=== PATIENT | male | born 1940 | race Caucasian/White ===

== ENCOUNTER 2021-03-31 10:48 | Inpatient (IN) ==
--- NOTE | 2021-03-31 11:11 | Emergency Department Note ---
Impression & Plan Hip fracture, Fall, Leukocytosis ED Provider Note NAME: SORAIDA MEI AGE: 81 SEX: M : 1940 ARRIVES VIA: Ambulance INFORMANT: Patient ED PROVIDER(S): Sekou Brand DO CHIEF COMPLAINT: Fall HPI: Patient is an 81-year-old male with Parkinson's disease who presents to the ER following being found on the floor at [facility]. He was complaining of left hip pain. Patient denies any shoulder pain, head pain, chest pain, or belly pain. He denies any shortness of breath. He does complain of left hip pain. History is fairly limited secondary to mentation. ROS: See above HPI for pertinent positives & negatives. A total of 10 systems reviewed and were otherwise negative. PAST MEDICAL HISTORY:See Below PAST SURGICAL HISTORY:See Below FAMILY HISTORY:See Below SOCIAL HISTORY:See Below HOME MEDICATIONS:See Below ALLERGIES:See Below VITALS:See Below PHYSICAL EXAMINATION: GENERAL: alert, well appearing, well nourished, no distress, non-toxic HEAD: normal cephalic, incision over cranium with no drainage or discharge EYE EXAM: normal conjunctiva, PERRL and EOM's grossly intact OROPHARYNX: no exudate, no erythema, lips, buccal mucosa, and tongue normal and mucous membranes are moist NECK: supple, no nuchal rigidity, no adenopathy, non-tender CHEST: stable to compression anteriorly and posteriorly LUNGS: clear to auscultation. Normal chest wall mechanics HEART: no murmurs, S1 normal and S2 normal ABDOMEN: abdomen soft, non-tender, normo-active bowel sounds, no masses, no rebound or guarding. PELVIS: stable to compression anteriorly and posteriorly BACK: Back is symmetrical on inspection and there is no deformity, no midline tenderness, no CVA tenderness. UPPER EXTREMITIES: full active and passive range of motion of all joints without tenderness to palpation LOWER EXTREMITIES: Hip knee ankle and EHL without tenderness to palpation of the entire extremity. Tenderness over the left hip on palpation. No tenderness throughout the left knee tib-fib or ankle flexion-extension right NEURO EXAM: Awake alert will intermittently answer questions oriented to person and believes he is at [facility]. Moving upper extremities. Pain with movement of the left hip which is held in flexion. MEDICAL DECISION MAKING: Patient is an 81-year-old male with dementia pacer and neurostimulator who presents the ER following a fall complaining of left hip pain. Slight hypoxic placed on 2 L nasal cannula. IV was established blood work was obtained. Labs showed mild leukocytosis 12,000. No significant anemia. BMP all with LFTs was unremarkable. T bili slightly up at 1.9. Lipase was normal. Covid was negative. X-rays of the pelvis showed impacted left femoral neck fracture. CT head was clean. Discussed with family and they do not want surgery but do need additional help in regards to placement and treatment of pain. He was discussed with hospitalist for further evaluation. Triage Nursing notes reviewed. Limited review of prior medical records performed Vital Signs: reviewed and remarkable for no significant abnormalities Differential diagnosis: Differential diagnoses include major intracranial, cervical, spinal, thoracic, abdominal, pelvic and neurologic injury. Fracture, contusion, sprain, strain, laceration, abrasions included as well. ER treatment provided: See below Diagnostics interpreted by me: Cardiac Monitoring: An order was placed for continuous cardiac monitoring. The monitor shows a rate of 70 with sinus rhythm. Laboratory studies: As stated above and show below. Imaging studies: X-rays show left hip fracture CT head was negative Consultation(s): Discussed with hospitalist for further evaluation Discussed with Dr. Jose Antonio Zamora who evaluate the patient from orthopedics Procedures: Critical Care: None Past Med/Surg History Medical History (Updated 03/31/21 @ 16:09 by THELMA Moreno) Diverticulitis Hypokalemia Hypokalemia No significant family history Pacemaker Parkinson disease Parkinson disease Surgical History (Updated 03/31/21 @ 15:52 by THELMA Moreno) No significant past surgical history Social History Smoking Status: Unknown if ever smoked Feels Safe at Home: Yes Allergies Allergies Allergy/AdvReac Type Severity Reaction Status Date / Time amoxicillin Allergy Severe LIVER Verified 03/31/21 12:45 REACTION, BECAME JAUNDICE clavulanic acid Allergy Severe LIVER Verified 03/31/21 12:45 REACTION, JAUNDICE Quinolones Allergy Mild LIVER, Verified 03/31/21 12:45 JAUNDICE; ALLERGY TO CIPRO, LEVAQUIN, & MOXIFLOXACIN Home Meds Home Medications Medication Instructions Recorded Confirmed atorvastatin 40 mg tablet (Lipitor) 40 mg PO HS 09/01/18 03/31/21 calcium carb,cit ER 600 mg-vit D3 1 tab PO DAILY 09/01/18 03/31/21 12.5 mcg (500 unit) tablet,ext.rel carbidopa 25 mg-levodopa 100 mg 2 tab PO 6XD 09/01/18 03/31/21 tablet isosorbide mononitrate 30 mg 30 mg PO DAILY 09/01/18 03/31/21 tablet,extended release 24 hr lactobacillus combination no.4 3 3 mmu cells PO BID 09/01/18 03/31/21 billion cell capsule (Probiotic) melatonin 5 mg tablet 10 mg PO HS 09/01/18 03/31/21 metoprolol succinate 50 mg capsule 75 mg PO DAILY 09/01/18 03/31/21 sprinkle, ext. release 24 hr multivitamin 1 tab PO DAILY 09/01/18 03/31/21 nitroglycerin 0.4 mg sublingual 0.4 mg SUBLINGUAL UD PRN 09/01/18 03/31/21 tablet (Nitrostat) polyethylene glycol 3350 17 gram 8.5 g PO DAILY 09/01/18 03/31/21 oral powder packet (Miralax) psyllium husk 3.4 gram/5.4 gram 1 dose PO DAILY 09/01/18 03/31/21 oral powder (Metamucil) escitalopram oxalate 10 mg tablet 10 mg PO DAILY 03/31/21 03/31/21 rivastigmine tartrate 6 mg capsule 6 mg PO BID 03/31/21 03/31/21 Results & Data (ED) Vital Signs Vital Signs - 24 hr 03/31/21 11:05 03/31/21 11:08 03/31/21 11:11 Temperature 37.0 C 37.0 C Temperature Source Oral Oral Pulse Rate 78 83 Pulse Rate [Apical] Pulse Rhythm Regular Regular Pulse Rhythm [Apical] Pulse Strength Normal Pulse Strength [Apical] Respiratory Rate 20 19 18 Respiratory Effort / Characteristics Non-Labored Spontaneous Non-Labored Spontaneous Respiratory Depth Normal Normal Respiratory Pattern Regular Blood Pressure 162/101 H Blood Pressure [Right Arm] 162/101 H Blood Pressure Mean 121 Blood Pressure Mean [Right Arm] 121 Blood Pressure Position Lying Blood Pressure Position [Right Arm] Lying Pulse Oximetry 97 96 95 Oxygen Delivery Method Nasal Cannula Nasal Cannula Nasal Cannula Oxygen Flow Rate 3 2 2 Sepsis Recent Fever Within 48 Hours No Sepsis New/Unexplained Change in Mental Status N/A Sepsis Action Taken by Nursing No Action Required 03/31/21 13:05 Temperature Temperature Source Pulse Rate Pulse Rate [Apical] 73 Pulse Rhythm Pulse Rhythm [Apical] Regular Pulse Strength Pulse Strength [Apical] Normal Respiratory Rate 20 Respiratory Effort / Characteristics Non-Labored Spontaneous Respiratory Depth Normal Respiratory Pattern Blood Pressure Blood Pressure [Right Arm] 183/94 H Blood Pressure Mean Blood Pressure Mean [Right Arm] 123 Blood Pressure Position Blood Pressure Position [Right Arm] Lying Pulse Oximetry 95 Oxygen Delivery Method Nasal Cannula Oxygen Flow Rate 2 Sepsis Recent Fever Within 48 Hours Sepsis New/Unexplained Change in Mental Status Sepsis Action Taken by Nursing Laboratory Data Result diagrams: 03/31/21 11:12 03/31/21 11:12 Lab Results 03/31/21 03/31/21 03/31/21 Range/Units 11:12 11:12 11:58 WBC 12.54 H (4.8-10.8) K/uL RBC 4.16 L (4.7-6.1) M/uL Hgb 13.1 L (14.0-18.0) g/dL Hct 39.0 L (42-52) % MCV 93.8 (80-100) fL MCH 31.5 (25-34) pg MCHC 33.6 (32-36) g/dL RDW Std Deviation 49.5 H (36.4-46.3) fL RDW Coeff of Jeremías 14.5 (11.5-14.5) % Plt Count 232 (130-400) K/uL MPV 8.8 (7.4-10.4) fL Immature Gran % (Auto) 0.5 % Neut % (Auto) 83.6 % Lymph % (Auto) 10.7 % Alger % (Auto) 4.9 % Eos % (Auto) 0.3 % Baso % (Auto) 0.0 % Neut # (Auto) 10.48 H (1.4-6.5) K/uL Lymph # (Auto) 1.34 (1.2-3.4) K/uL Alger # (Auto) 0.62 H (0.11-0.59) K/uL Eos # (Auto) 0.04 (0-0.5) K/uL Baso # (Auto) 0.00 (0-0.2) K/uL Immature Gran # (Auto) 0.06 H (0.00-0.02) K/uL Sodium 138 (136-145) mmol/L Potassium 3.9 (3.5-5.1) mmol/L Chloride 105 (98-107) mmol/L Carbon Dioxide 31 (21-32) mmol/L Anion Gap 2.0 L (3-11) BUN 16 (7-18) mg/dl Creatinine 0.74 (0.6-1.4) mg/dl Est Cr Clr Drug Dosing 83.0 ml/min Est GFR ( Amer) 98.9 ml/min Est GFR (Non-Af Amer) 85.3 ml/min BUN/Creatinine Ratio 21.8 H (10-20) Glucose 98 (70-99) mg/dl Calcium 9.1 (8.5-10.1) mg/dl Total Bilirubin 1.9 H (0.2-1) mg/dl AST 35 (15-37) U/L ALT 29 (12-78) U/L Alkaline Phosphatase 104 (45-117) U/L Total Protein 6.7 (6.4-8.2) gm/dl Albumin 3.6 (3.4-5.0) gm/dl Globulin 3.1 (2.5-4.0) gm/dl Albumin/Globulin Ratio 1.2 (0.9-2) Lipase 127 (73-393) U/L COVID-19 Eval Order Covid19 at [facility] SARS-CoV-2 (PCR) (Negative) 03/31/21 Range/Units 11:58 WBC (4.8-10.8) K/uL RBC (4.7-6.1) M/uL Hgb (14.0-18.0) g/dL Hct (42-52) % MCV (80-100) fL MCH (25-34) pg MCHC (32-36) g/dL RDW Std Deviation (36.4-46.3) fL RDW Coeff of Jeremías (11.5-14.5) % Plt Count (130-400) K/uL MPV (7.4-10.4) fL Immature Gran % (Auto) % Neut % (Auto) % Lymph % (Auto) % Alger % (Auto) % Eos % (Auto) % Baso % (Auto) % Neut # (Auto) (1.4-6.5) K/uL Lymph # (Auto) (1.2-3.4) K/uL Alger # (Auto) (0.11-0.59) K/uL Eos # (Auto) (0-0.5) K/uL Baso # (Auto) (0-0.2) K/uL Immature Gran # (Auto) (0.00-0.02) K/uL Sodium (136-145) mmol/L Potassium (3.5-5.1) mmol/L Chloride (98-107) mmol/L Carbon Dioxide (21-32) mmol/L Anion Gap (3-11) BUN (7-18) mg/dl Creatinine (0.6-1.4) mg/dl Est Cr Clr Drug Dosing ml/min Est GFR ( Amer) ml/min Est GFR (Non-Af Amer) ml/min BUN/Creatinine Ratio (10-20) Glucose (70-99) mg/dl Calcium (8.5-10.1) mg/dl Total Bilirubin (0.2-1) mg/dl AST (15-37) U/L ALT (12-78) U/L Alkaline Phosphatase (45-117) U/L Total Protein (6.4-8.2) gm/dl Albumin (3.4-5.0) gm/dl Globulin (2.5-4.0) gm/dl Albumin/Globulin Ratio (0.9-2) Lipase (73-393) U/L COVID-19 Eval Order SARS-CoV-2 (PCR) NEGATIVE (Negative) Administered Medications Discontinued Medications Acetaminophen (Acetaminophen 325 Mg Tab) 650 mg PO NOW STA Stop: 03/31/21 15:18 Last Admin: 03/31/21 15:50 Dose: Not Given Documented by: [id number] Imaging Data Radiologist's Impression: Head CT 03/31/21 11:03 CT OF THE HEAD WITHOUT CONTRAST CLINICAL HISTORY: Headache. COMPARISON STUDY: Head CT October 22, 2018. CT DOSE: 1041.13 mGy.cm TECHNIQUE: Helical axial images of the head were obtained without IV contrast. Automated exposure control was utilized for the study. A dose lowering techn ique was utilized adhering to the principles of ALARA. FINDINGS: Exam is mildly compromised by streak artifact from bilateral stimulator leads. Hypodensity adjacent to the stimulator leads is likely from recent placement. Ventricular system is stable. Basal cisterns are patent. No extra axial collections are present. There are no findings to suggest acute du ral sinus thrombosis or acute territorial infarct. There is no calvarial fracture. Gas within the left calvarial defect suggests recent placement. IMPRESSION: 1. No acute intracranial findings. 2. Exam mildly compromised by streak artifact from bilateral stimulator leads. ACT 112: Negative or not required by law. Electronically signed by: Hai Li M.D. 03/31/2021 1:44 PM Hip/Pelvis X-Ray 03/31/21 11:03 SINGLE VIEW PELVIS; 2 VIEWS LEFT HIP CLINICAL HISTORY: Fall. Left hip pain. FINDINGS: An AP view of the pelvis with AP and frog-leg views of the left hip are obtained. Correlation is made with pelvic CT dated 05/15/2015. The skeletal structures are osteopenic. There is an impacted and mildly displaced subcapital fracture of the left femur. Overlying soft tissue edema is noted. No additional fracture is seen involving the right hip or the bony pelvis. Mild degenerative joint space narrowing is present in the hips. Degenerative sclerosis is seen in the sacroiliac joints. Surgical clips project over the scrotum. There are pelvic phleboliths. IMPRESSION: Impacted and mildly displaced subcapital fracture of the left femur. Electronically signed by: Fabian Eric M.D. 03/31/2021 12:09 PM Chest X-Ray 03/31/21 11:11 XR chest 1V not portable CLINICAL HISTORY: Fall. COMPARISON STUDY: Chest radiograph September 01, 2018. FINDINGS: Patient is rotated. There are median sternotomy wires, mediastinal surgical clips and a stimulator device. No pneumothorax or pleural effusion is noted. No evidence for pulmonary edema. Skin folds project over the right chest. No consolidation is identified. IMPRESSION: No acute cardiopulmonary findings. Rotated study. ACT 112: Negative or not required by law. Electronically signed by: Hai Li M.D. 03/31/2021 12:02 PM Discharge Plan Visit Data Chief Complaint: Fall Stated Complaint: FALL, L HIP & SHOULDER PAIN ED Provider: Sekou Brand Discharge Problem: Hip fracture, Fall, Leukocytosis Forms Stand Alone Forms: [facility] Prescriptions Prescriptions: No Action multivitamin Tablet 1 tab PO DAILY RF: 0 atorvastatin [Lipitor] 40 mg Tablet 40 mg PO HS RF: 0 polyethylene glycol 3350 [Miralax] 17 gram Powder In Packet 8.5 g PO DAILY RF: 0 isosorbide mononitrate 30 mg Tablet Extended Release 24 Hr 30 mg PO DAILY RF: 0 nitroglycerin [Nitrostat] 0.4 mg Tablet, Sublingual 0.4 mg sublingual UD PRN (Reason: Chest Pain) RF: 0 carbidopa-levodopa 25-100 mg Tablet 2 tab PO 6XD RF: 0 melatonin 5 mg Tablet 10 mg PO HS RF: 0 calcium carb and citrate-vitD3 600 mg calcium- 500 unit Tablet Extended Release 1 tab PO DAILY RF: 0 Probiotic 3 billion cell Capsule 3 mmu cells PO BID RF: 0 Metamucil 3.4 gram/5.4 gram Powder 1 dose PO DAILY RF: 0 metoprolol succinate 50 mg Capsule,Sprinkle,Er 24hr 75 mg PO DAILY RF: 0 rivastigmine tartrate 6 mg capsule 6 mg PO BID RF: 0 escitalopram oxalate 10 mg tablet 10 mg PO DAILY RF: 0 Referrals Referrals: Lorne Gomez [Primary Care Provider] -
[2021-03-31 11:20] LABS: Eosinophils # (auto) 0.04 K/uL (0-0.5); Eosinophils % (auto) 0.3 %; Hemoglobin 13.1 g/dL (14.0-18.0); Immature Granulocytes # (auto) 0.06 K/uL (0.00-0.02); Immature Granulocytes % (auto) 0.5 %; Lymphocytes # (auto) 1.34 K/uL (1.2-3.4); Lymphocytes % (auto) 10.7 %; Mean Corpuscular Hemoglobin 31.5 pg (25-34); Mean Corpuscular Hgb Conc 33.6 g/dL (32-36); Mean Corpuscular Volume 93.8 fL (80-100); Mean Platelet Volume 8.8 fL (7.4-10.4); Monocytes # (auto) 0.62 K/uL (0.11-0.59); Monocytes % (auto) 4.9 %; Neutrophils # (auto) 10.48 K/uL (1.4-6.5); Neutrophils % (auto) 83.6 %; Platelet Count 232 K/uL (130-400); RDW Coefficient of Variation 14.5 % (11.5-14.5); RDW Standard Deviation 49.5 fL (36.4-46.3); Red Blood Count 4.16 M/uL (4.7-6.1); White Blood Count 12.54 K/uL (4.8-10.8)
[2021-03-31 11:50] LABS: Albumin Level 3.6 gm/dl (3.4-5.0); BUN Creatinine Ratio 21.8 (10-20); Calcium 9.1 mg/dl (8.5-10.1); Est GFR (African American) 98.9 ml/min; Est GFR (Non-African American) 85.3 ml/min; Potassium 3.9 mmol/L (3.5-5.1)
[2021-03-31 11:53] LABS: Albumin Globulin Ratio 1.2 (0.9-2); Bilirubin,Total 1.9 mg/dl (0.2-1); Globulin 3.1 gm/dl (2.5-4.0); Total Protein 6.7 gm/dl (6.4-8.2)
--- NOTE | 2021-03-31 12:03 | XRay Report ---
XR chest 1V not portable CLINICAL HISTORY: Fall. COMPARISON STUDY: Chest radiograph September 01, 2018. FINDINGS: Patient is rotated. There are median sternotomy wires, mediastinal surgical clips and a sti mulator device. No pneumothorax or pleural effusion is noted. No evidence for pulmonary edema. Skin f olds project over the right chest. No consolidation is identified. IMPRESSION: No acute cardiopulmonary findings. Rotated study. ACT 112: Negative or not required by law. Electronically signed by: Hai Li M.D. 03/31/2021 12:02 PM
--- NOTE | 2021-03-31 12:10 | XRay Report ---
SINGLE VIEW PELVIS; 2 VIEWS LEFT HIP CLINICAL HISTORY: Fall. Left hip pain. FINDINGS: An AP view of the pelvis with AP and frog-leg views of the left hip are obtained. Correlati on is made with pelvic CT dated 05/15/2015. The skeletal structures are osteopenic. There is an impact ed and mildly displaced subcapital fracture of the left femur. Overlying soft tissue edema is noted. No additional fracture is seen involving the right hip or the bony pelvis. Mild degenerative joint sp jey narrowing is present in the hips. Degenerative sclerosis is seen in the sacroiliac joints. Surgic al clips project over the scrotum. There are pelvic phleboliths. IMPRESSION: Impacted and mildly displaced subcapital fracture of the left femur. Electronically signed by: Fabian Eric M.D. 03/31/2021 12:09 PM
--- NOTE | 2021-03-31 13:45 | CT Scan Report ---
CT OF THE HEAD WITHOUT CONTRAST CLINICAL HISTORY: Headache. COMPARISON STUDY: Head CT October 22, 2018. CT DOSE: 1041.13 mGy.cm TECHNIQUE: Helical axial images of the head were obtained without IV contrast. Automated exposure con trol was utilized for the study. A dose lowering technique was utilized adhering to the principles o f ALARA. FINDINGS: Exam is mildly compromised by streak artifact from bilateral stimulator leads. Hypodensity adjacent to the stimulator leads is likely from recent placement. Ventricular system is stable. Basal cisterns are patent. No extra axial collections are present. There are no findings to suggest acute dural sinus thrombosis or acute territorial infarct. There is no calvarial fracture. Gas within the l eft calvarial defect suggests recent placement. IMPRESSION: 1. No acute intracranial findings. 2. Exam mildly compromised by streak artifact from bilateral stimulator leads. ACT 112: Negative or not required by law. Electronically signed by: Hai Li M.D. 03/31/2021 1:44 PM
[2021-03-31] MEDS ORDERED: ACETAMINOPHEN 325 MG TAB PO STA (15:17)
--- NOTE | 2021-03-31 15:26 | History & Physical Report ---
Date of Service March 31, 2021 Assessment & Plan (1) Hip fracture: Plan: Impacted and mildly displaced subcapital fracture of the left femur - Acute s/p fall - Appreciate orthopaedics consultation - Conservative approach at this time - Tylenol for pain - narcotic if needed - minimize benzo - PT/OT consult pending orthopaedics recs. (2) S/P deep brain stimulator placement: Plan: Placed for his parkinsons disease - was to go next week to get settings and activated (3) Parkinson disease: Plan: Continue carbidopa-levodopa - WIll need dose on arrival to floor (4) CAD (coronary artery disease): Plan: CAD with bypass surgery - Continue isosorbide - Continue atorvastatin - Continue Metoprolol (5) Leukocytosis: Plan: No other infectious symptoms- this is likely related to fall injury (6) Dementia: Plan: Dementia with some overlapping delirium following hospitalizations - Patient does get confused at night and is used to going up to the bathroom - Will place patient on 1:1 observation for assistance and safety while admitted (7) Communication deficit: Plan: Improves later in the day for a few hours - continue his cabidopa/levodopa and rivastigmine (8) Depression: Plan: Continue escitalopram 10mg PO daily History of Present Illness Primary Care Provider: [facility] We have no records available on this patient. Information for this H&P was obtained by the family at bedside and fpc cover sheet. 81 YOM with past medical history of: CABG x4, HLD, HTN, parkinsonian dementia, s/p brain stimulator placement and pacemaker placement at [facility] [place]. Patient is a resident at [facility] where he suffered a fall today landing on his left hip. The patient is not very vocal or aware of his surroundings at baseline, but per family he improves in the evening and have some conversation with him. He walks with a rolling walker and one person assist with gait belt per interview with daughter. The patient did suffer a Impacted and mildly displaced subcapital fracture of the left femur. Initial discussion with the son on the phone and [id number] at the bedside, the would not want surgery correction if this was able to heal with conservative management. I have discussed the case with Dr. Zamora. The patient will be admitted for pain control, PT/OT, and set-up for rehab or return to [facility]. The patient COVID test on admission is: NEGATIVE Allergies Allergy/AdvReac Type Severity Reaction Status Date / Time amoxicillin Allergy Severe LIVER Verified 03/31/21 12:45 REACTION, BECAME JAUNDICE clavulanic acid Allergy Severe LIVER Verified 03/31/21 12:45 REACTION, JAUNDICE Quinolones Allergy Mild LIVER, Verified 03/31/21 12:45 JAUNDICE; ALLERGY TO CIPRO, LEVAQUIN, & MOXIFLOXACIN Home Medications Medication Instructions Recorded Confirmed Type atorvastatin 40 mg tablet (Lipitor) 40 mg PO HS 09/01/18 03/31/21 History calcium carb,cit ER 600 mg-vit D3 1 tab PO DAILY 09/01/18 03/31/21 History 12.5 mcg (500 unit) tablet,ext.rel carbidopa 25 mg-levodopa 100 mg 2 tab PO 6XD 09/01/18 03/31/21 History tablet isosorbide mononitrate 30 mg 30 mg PO DAILY 09/01/18 03/31/21 History tablet,extended release 24 hr lactobacillus combination no.4 3 3 mmu cells PO BID 09/01/18 03/31/21 History billion cell capsule (Probiotic) melatonin 5 mg tablet 10 mg PO HS 09/01/18 03/31/21 History metoprolol succinate 50 mg capsule 75 mg PO DAILY 09/01/18 03/31/21 History sprinkle, ext. release 24 hr multivitamin 1 tab PO DAILY 09/01/18 03/31/21 History nitroglycerin 0.4 mg sublingual 0.4 mg SUBLINGUAL UD PRN 09/01/18 03/31/21 History tablet (Nitrostat) polyethylene glycol 3350 17 gram 8.5 g PO DAILY 09/01/18 03/31/21 History oral powder packet (Miralax) psyllium husk 3.4 gram/5.4 gram 1 dose PO DAILY 09/01/18 03/31/21 History oral powder (Metamucil) escitalopram oxalate 10 mg tablet 10 mg PO DAILY 03/31/21 03/31/21 History rivastigmine tartrate 6 mg capsule 6 mg PO BID 03/31/21 03/31/21 History Past Med/Surg History Medical History Anemia CAD (coronary artery disease) Communication deficit Dementia Depression Diverticulitis Pacemaker Parkinson disease Surgical History Hx of CABG Status post deep brain stimulator placement Social History Smoking Status: Unknown if ever smoked Preferred Language: Wolof Communication Ability: Impaired 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 Review of Systems Review of Systems: unable to perform secondary to baseline dementia - Son does endorse that he has been dealing with more dementia following his recent hospitalization Physical Exam Physical Exam: PHYSICAL EXAM: General: Demented with severe baseline tremors Head: Normocephalic, well healing sutures ENT: PERRLA, mucous membranes dry Neuro: AAO x 1, does move all extremities 5/5 , sensation intact and equal all extremities and dermatomes, baseline tremor Chest: equal rise and fall of the chest, no accessory muscle use, no heaves or thrills, Clear to auscultation, on room air, Cardiac: Regular rate and rhythm, telemetry reviewed NSR, skin warm dry, cap refill <3 seconds, peripheral pulses +2 no JVD, no murmur, no edema GI: NABS x 4 quadrants, soft, nontender to palpation, no rebound, guarding or tenderness : Spontaneously voiding- incontinence Extremities: Normal inspection, no peripheral edema or erythema, Psych:dementia Results & Data Results & Data ([facility]) Vital Signs (Past 12 Hours) Vital Signs Temp Pulse Pulse Resp BP BP Pulse Ox 03/31/21 13:05 73 20 183/94 H 95 03/31/21 11:11 37.0 C 83 18 162/101 H 95 03/31/21 11:08 78 19 96 03/31/21 11:05 37.0 C 20 162/101 H 97 Laboratory Results Abnormal lab results 03/31/21 03/31/21 Range/Units 11:12 11:12 WBC 12.54 H (4.8-10.8) K/uL RBC 4.16 L (4.7-6.1) M/uL Hgb 13.1 L (14.0-18.0) g/dL Hct 39.0 L (42-52) % RDW Std Deviation 49.5 H (36.4-46.3) fL Neut # (Auto) 10.48 H (1.4-6.5) K/uL [place] # (Auto) 0.62 H (0.11-0.59) K/uL Immature Gran # (Auto) 0.06 H (0.00-0.02) K/uL Anion Gap 2.0 L (3-11) BUN/Creatinine Ratio 21.8 H (10-20) Total Bilirubin 1.9 H (0.2-1) mg/dl Diagnostic Findings Head CT 03/31/21 11:03 CT OF THE HEAD WITHOUT CONTRAST CLINICAL HISTORY: Headache. COMPARISON STUDY: Head CT October 22, 2018. CT DOSE: 1041.13 mGy.cm TECHNIQUE: Helical axial images of the head were obtained without IV contrast. Automated exposure control was utilized for the study. A dose lowering technique was utilized adhering to the principles of ALARA. FINDINGS: Exam is mildly compromised by streak artifact from bilateral stimulator leads. Hypodensity adjacent to the stimulator leads is likely from recent placement. Ventricular system is stable. Basal cisterns are patent. No extra axial collections are present. There are no findings to suggest acute dural sinus thrombosis or acute territorial infarct. There is no calvarial fracture. Gas within the left calvarial defect suggests recent placement. IMPRESSION: 1. No acute intracranial findings. 2. Exam mildly compromised by streak artifact from bilateral stimulator leads. ACT 112: Negative or not required by law. Electronically signed by: Hai Li M.D. 03/31/2021 1:44 PM Hip/Pelvis X-Ray 03/31/21 11:03 SINGLE VIEW PELVIS; 2 VIEWS LEFT HIP CLINICAL HISTORY: Fall. Left hip pain. FINDINGS: An AP view of the pelvis with AP and frog-leg views of the left hip are obtained. Correlation is made with pelvic CT dated 05/15/2015. The skeletal structures are osteopenic. There is an impacted and mildly displaced subcapital fracture of the left femur. Overlying soft tissue edema is noted. No additional fracture is seen involving the right hip or the bony pelvis. Mild degenerative joint space narrowing is present in the hips. Degenerative sclerosis is seen in the sacroiliac joints. Surgical clips project over the scrotum. There are pelvic phleboliths. IMPRESSION: Impacted and mildly displaced subcapital fracture of the left femur. Electronically signed by: Fabian Eric M.D. 03/31/2021 12:09 PM Chest X-Ray 03/31/21 11:11 XR chest 1V not portable CLINICAL HISTORY: Fall. COMPARISON STUDY: Chest radiograph September 01, 2018. FINDINGS: Patient is rotated. There are median sternotomy wires, mediastinal surgical clips and a stimulator device. No pneumothorax or pleural effusion is noted. No evidence for pulmonary edema. Skin folds project over the right chest. No consolidation is identified. IMPRESSION: No acute cardiopulmonary findings. Rotated study. ACT 112: Negative or not required by law. Electronically signed by: Hai Li M.D. 03/31/2021 12:02 PM Medications Administered Discontinued Medications Acetaminophen (Acetaminophen 325 Mg Tab) 650 mg PO NOW STA Stop: 03/31/21 15:18 Last Admin: 03/31/21 15:50 Dose: Not Given Documented by: [id number] Home Medications atorvastatin 40 mg tablet (Lipitor) 40 mg PO HS 09/01/18 [History Confirmed 03/31/21] calcium carb,cit ER 600 mg-vit D3 12.5 mcg (500 unit) tablet,ext.rel 1 tab PO DAILY 09/01/18 [History Confirmed 03/31/21] carbidopa 25 mg-levodopa 100 mg tablet 2 tab PO 6XD 09/01/18 [History Confirmed 03/31/21] isosorbide mononitrate 30 mg tablet,extended release 24 hr 30 mg PO DAILY 09/01/18 [History Confirmed 03/31/21] lactobacillus combination no.4 3 billion cell capsule (Probiotic) 3 mmu cells PO BID 09/01/18 [History Confirmed 03/31/21] melatonin 5 mg tablet 10 mg PO HS 09/01/18 [History Confirmed 03/31/21] metoprolol succinate 50 mg capsule sprinkle, ext. release 24 hr 75 mg PO DAILY 09/01/18 [History Confirmed 03/31/21] multivitamin 1 tab PO DAILY 09/01/18 [History Confirmed 03/31/21] nitroglycerin 0.4 mg sublingual tablet (Nitrostat) 0.4 mg SUBLINGUAL UD PRN 09/01/18 [History Confirmed 03/31/21] polyethylene glycol 3350 17 gram oral powder packet (Miralax) 8.5 g PO DAILY 09/01/18 [History Confirmed 03/31/21] psyllium husk 3.4 gram/5.4 gram oral powder (Metamucil) 1 dose PO DAILY 09/01/18 [History Confirmed 03/31/21] escitalopram oxalate 10 mg tablet 10 mg PO DAILY 03/31/21 [History Confirmed 03/31/21] rivastigmine tartrate 6 mg capsule 6 mg PO BID 03/31/21 [History Confirmed 03/31/21] Active Medications Acetaminophen (Acetaminophen 1000 Mg/100 Ml Iv) 1,000 mg IV NOW ONE Stop: 03/31/21 16:01 Lactated Ringer's (Lr) 1,000 mls @ 90 mls/hr IV .[id number] [place] Stop: 04/30/21 15:44 ECG Additional Comments: NONE on admission Code Status & VTE Plan Code Status CODE: FULL VTE; SCDs, Heparin 5000 subq q12 Supervising Physician Co-Signing Physician Notes 81 yo male is seen and examined at bedside. During face to face encounter with patient, obtained a history and physical examination. Discussed case with IVANNA Lorenzana and answered all of the patient's questions. However this was limited due to his dementia. I reviewed above note and agree with it. Patient will be admitted with a hip fracture and will require an ortho consult. Due to his advanced age and comorbidities, family is leaning towards conservative managment. PG Care Time/CCT Total # of Minutes Spent Total Time Spent with Patient: Total time spent is greater than 50% in coordination of care (as documented) at patient's floor/unit and/or counseling patient: Coding Level of Care Code 54396 Initial Inpt Care Lvl 3 Diagnoses Hip fracture S72.009A S/P deep brain stimulator placement Z96.89 Parkinson disease G20 CAD (coronary artery disease) I25.10 Leukocytosis D72.829 Dementia F03.90 Communication deficit F80.9 Depression F32.A
[2021-03-31] MEDS ORDERED: ACETAMINOPHEN 1000 MG/100 ML IV IV ONE ×2 (15:48→16:00)
--- NOTE | 2021-03-31 16:04 | Orthopedic Consultation ---
Date of Consultation March 31, 2021 Assessment & Plan (1) Hip fracture: Discussed options with the patient and son which include non-operative versus surgical intervention with hip pal arthroplasty. The risks and benefits of each were discussed. Due to Parkinson's the patient is high risk for complications with surgery. The son understands that his father is at high risk to become wheel chair bound with or without surgery. Also answered questions regarding pain, which typically resolves after 2 weeks with bed to chair treatment. Healing of the fracture would take approximately 8 weeks. They would like to proceed with conservative treatment. Recommend: NWB LLE Bed to chair PT for generalized core, RLE, and upper body strengthening, mobility, eval and treat OT eval and treat Follow-up in office for x-rays 4-6 weeks. DVT Prophylaxis: TEDs 16-19 hours per day, and foot pumps while in hospital. Primary care's choice of medicinal DVT prophylaxis. Continue care per primary service. Please recall if there are any other orthopedic issues. Present on Admission?: Yes History of Present Illness Reason for Consultation: Left hip fracture History of Present Illness Isael is an 81 year old male who fell going to the bath room injuring his left hip. He is a resident at [facility] recently moved to nursing. He ambulates with assistance and a rolling walker, but has become weak with multiple recent surgeries for brain stimulator. All information today obtained from the patient's son as the patient is incoherent. Allergies Allergy/AdvReac Type Severity Reaction Status Date / Time amoxicillin Allergy Severe LIVER Verified 03/31/21 12:45 REACTION, BECAME JAUNDICE clavulanic acid Allergy Severe LIVER Verified 03/31/21 12:45 REACTION, JAUNDICE Quinolones Allergy Mild LIVER, Verified 03/31/21 12:45 JAUNDICE; ALLERGY TO CIPRO, LEVAQUIN, & MOXIFLOXACIN Home Medications Medication Instructions Recorded Confirmed Type atorvastatin 40 mg tablet (Lipitor) 40 mg PO HS 09/01/18 03/31/21 History calcium carb,cit ER 600 mg-vit D3 1 tab PO DAILY 09/01/18 03/31/21 History 12.5 mcg (500 unit) tablet,ext.rel carbidopa 25 mg-levodopa 100 mg 2 tab PO 6XD 09/01/18 03/31/21 History tablet isosorbide mononitrate 30 mg 30 mg PO DAILY 09/01/18 03/31/21 History tablet,extended release 24 hr lactobacillus combination no.4 3 3 mmu cells PO BID 09/01/18 03/31/21 History billion cell capsule (Probiotic) melatonin 5 mg tablet 10 mg PO HS 09/01/18 03/31/21 History metoprolol succinate 50 mg capsule 75 mg PO DAILY 09/01/18 03/31/21 History sprinkle, ext. release 24 hr multivitamin 1 tab PO DAILY 09/01/18 03/31/21 History nitroglycerin 0.4 mg sublingual 0.4 mg SUBLINGUAL UD PRN 09/01/18 03/31/21 History tablet (Nitrostat) polyethylene glycol 3350 17 gram 8.5 g PO DAILY 09/01/18 03/31/21 History oral powder packet (Miralax) psyllium husk 3.4 gram/5.4 gram 1 dose PO DAILY 09/01/18 03/31/21 History oral powder (Metamucil) escitalopram oxalate 10 mg tablet 10 mg PO DAILY 03/31/21 03/31/21 History rivastigmine tartrate 6 mg capsule 6 mg PO BID 03/31/21 03/31/21 History Patient History Medical History Communication deficit Depression Diverticulitis Hypokalemia Hypokalemia No significant family history Pacemaker Parkinson disease Parkinson disease Surgical History Status post deep brain stimulator placement Social History Smoking Status: Unknown if ever smoked Feels Safe at Home: Yes Review of Systems Review of Systems: Unobtainable due to cognitive status Physical Exam Physical Exam: AAO to self. Patient is resting comfortably in bed. Resting tremor of the the upper extremities. LLE: spontaneously moves toes and ankle. 1+ DP pulse. Unable to fully asses sensation to light touch due to patient cognition. Small abrasion over anterior knee. No pain with gentle motion of leg, knee, hip. Results & Data ([facility]) Vital Signs (Past 12 Hours) Vital Signs Temp Pulse Pulse Resp BP BP Pulse Ox 03/31/21 13:05 73 20 183/94 H 95 03/31/21 11:11 37.0 C 83 18 162/101 H 95 03/31/21 11:08 78 19 96 03/31/21 11:05 37.0 C 20 162/101 H 97 Laboratory Results 03/31/21 03/31/21 03/31/21 Range/Units 11:58 11:58 11:12 WBC (4.8-10.8) K/uL RBC (4.7-6.1) M/uL Hgb (14.0-18.0) g/dL Hct (42-52) % MCV (80-100) fL MCH (25-34) pg MCHC (32-36) g/dL RDW Std Deviation (36.4-46.3) fL RDW Coeff of Jeremías (11.5-14.5) % Plt Count (130-400) K/uL MPV (7.4-10.4) fL Immature Gran % (Auto) % Neut % (Auto) % Lymph % (Auto) % [place] % (Auto) % Eos % (Auto) % Baso % (Auto) % Neut # (Auto) (1.4-6.5) K/uL Lymph # (Auto) (1.2-3.4) K/uL [place] # (Auto) (0.11-0.59) K/uL Eos # (Auto) (0-0.5) K/uL Baso # (Auto) (0-0.2) K/uL Immature Gran # (Auto) (0.00-0.02) K/uL Sodium 138 (136-145) mmol/L Potassium 3.9 (3.5-5.1) mmol/L Chloride 105 (98-107) mmol/L Carbon Dioxide 31 (21-32) mmol/L Anion Gap 2.0 L (3-11) BUN 16 (7-18) mg/dl Creatinine 0.74 (0.6-1.4) mg/dl Est Cr Clr Drug Dosing 83.0 ml/min Est GFR ( Amer) 98.9 ml/min Est GFR (Non-Af Amer) 85.3 ml/min BUN/Creatinine Ratio 21.8 H (10-20) Glucose 98 (70-99) mg/dl Calcium 9.1 (8.5-10.1) mg/dl Total Bilirubin 1.9 H (0.2-1) mg/dl AST 35 (15-37) U/L ALT 29 (12-78) U/L Alkaline Phosphatase 104 (45-117) U/L Total Protein 6.7 (6.4-8.2) gm/dl Albumin 3.6 (3.4-5.0) gm/dl Globulin 3.1 (2.5-4.0) gm/dl Albumin/Globulin Ratio 1.2 (0.9-2) Lipase 127 (73-393) U/L COVID-19 Eval Order Covid19 at [facility] SARS-CoV-2 (PCR) NEGATIVE (Negative) 03/31/21 Range/Units 11:12 WBC 12.54 H (4.8-10.8) K/uL RBC 4.16 L (4.7-6.1) M/uL Hgb 13.1 L (14.0-18.0) g/dL Hct 39.0 L (42-52) % MCV 93.8 (80-100) fL MCH 31.5 (25-34) pg MCHC 33.6 (32-36) g/dL RDW Std Deviation 49.5 H (36.4-46.3) fL RDW Coeff of Jeremías 14.5 (11.5-14.5) % Plt Count 232 (130-400) K/uL MPV 8.8 (7.4-10.4) fL Immature Gran % (Auto) 0.5 % Neut % (Auto) 83.6 % Lymph % (Auto) 10.7 % [place] % (Auto) 4.9 % Eos % (Auto) 0.3 % Baso % (Auto) 0.0 % Neut # (Auto) 10.48 H (1.4-6.5) K/uL Lymph # (Auto) 1.34 (1.2-3.4) K/uL [place] # (Auto) 0.62 H (0.11-0.59) K/uL Eos # (Auto) 0.04 (0-0.5) K/uL Baso # (Auto) 0.00 (0-0.2) K/uL Immature Gran # (Auto) 0.06 H (0.00-0.02) K/uL Sodium (136-145) mmol/L Potassium (3.5-5.1) mmol/L Chloride (98-107) mmol/L Carbon Dioxide (21-32) mmol/L Anion Gap (3-11) BUN (7-18) mg/dl Creatinine (0.6-1.4) mg/dl Est Cr Clr Drug Dosing ml/min Est GFR ( Amer) ml/min Est GFR (Non-Af Amer) ml/min BUN/Creatinine Ratio (10-20) Glucose (70-99) mg/dl Calcium (8.5-10.1) mg/dl Total Bilirubin (0.2-1) mg/dl AST (15-37) U/L ALT (12-78) U/L Alkaline Phosphatase (45-117) U/L Total Protein (6.4-8.2) gm/dl Albumin (3.4-5.0) gm/dl Globulin (2.5-4.0) gm/dl Albumin/Globulin Ratio (0.9-2) Lipase (73-393) U/L COVID-19 Eval Order SARS-CoV-2 (PCR) (Negative) Diagnostic Findings AP Pelvis and AP & lateral left hip showed Impacted and mildly displaced subcapital fracture of the left femur.
[2021-03-31] MEDS ORDERED: CARBIDOPA/LEVODOPA 25/100MG TAB ODT PO ONE (16:22)
[2021-03-31] MEDS: LACTATED RINGER'S 1,000 ML IV SCH (16:39)
[2021-03-31] MEDS ORDERED: NITROGLYCERIN SL 0.4 MG/TAB TAB SL PRN (20:41)
[2021-03-31] MEDS ORDERED: RIVASTIGMINE TARTRATE 1.5 MG CAP PO SCH (21:00)
[2021-03-31 21:05] LABS: Appearance Urine Clear (Clear); Bilirubin Urine Negative (Negative); Blood Urine Negative (Negative); Color Urine Yellow; Glucose Urine UA Negative (Negative); Ketones Urine Negative (Negative); Leukocyte Esterase Urine Negative (Negative); Nitrite Urine Negative (Negative); Protein Urine Negative (Negative); Specific Gravity Urine 1.012 (1.000-1.030); Urobilinogen Urine Negative (Negative); pH Urine 8.5 (4.5-7.5)
[2021-03-31] MEDS: MELATONIN 3 MG TAB PO SCH (22:17)
[2021-03-31] MEDS: ATORVASTATIN 40 MG TAB PO SCH (22:17)
[2021-03-31] MEDS: HEPARIN SOD 5,000 UNIT/0.5 ML VIAL SQ SCH (22:17)
[2021-03-31] MEDS: CARBIDOPA/LEVODOPA 25/100MG TAB PO SCH (22:18)
[2021-04-01] MEDS: MoRPHine SULFATE 2 MG/ML CARP IV PRN ×2 (01:30→16:14)
[2021-04-01] MEDS: LACTATED RINGER'S 1,000 ML IV SCH ×2 (02:56→18:38)
[2021-04-01 05:50] LABS: Basophils # (auto) 0.02 K/uL (0-0.2); Basophils % (auto) 0.2 %; Eosinophils % (auto) 3.1 %; Hematocrit (blood only) 37.4 % (42-52); Hemoglobin 12.7 g/dL (14.0-18.0); Immature Granulocytes # (auto) 0.03 K/uL (0.00-0.02); Immature Granulocytes % (auto) 0.3 %; Lymphocytes # (auto) 0.81 K/uL (1.2-3.4); Lymphocytes % (auto) 8.3 %; Mean Corpuscular Hemoglobin 31.1 pg (25-34); Mean Corpuscular Volume 91.4 fL (80-100); Mean Platelet Volume 8.4 fL (7.4-10.4); Monocytes # (auto) 0.59 K/uL (0.11-0.59); Neutrophils # (auto) 8.06 K/uL (1.4-6.5); Neutrophils % (auto) 82.1 %; Platelet Count 201 K/uL (130-400); RDW Coefficient of Variation 14.5 % (11.5-14.5); RDW Standard Deviation 48.7 fL (36.4-46.3); Red Blood Count 4.09 M/uL (4.7-6.1); White Blood Count 9.81 K/uL (4.8-10.8)
[2021-04-01 06:10] LABS: BUN Creatinine Ratio 17.8 (10-20); Creatinine Clr Calc Pharmacy 84.2 ml/min; Est GFR (African American) 99.4 ml/min; Est GFR (Non-African American) 85.8 ml/min; Potassium 4.5 mmol/L (3.5-5.1)
[2021-04-01] MEDS ORDERED: INFLUENZA VACCINE HIGH DOSE PF 65+ 0.7 ML SYR IM ONE (08:00)
[2021-04-01] MEDS ORDERED: PNEUMOCOCCAL POLYSACCHARIDES 25 MCG/0.5 ML VIAL/SYR IM ONE (08:00)
[2021-04-01] MEDS: METOPROLOL SUCC 25MG EXT REL TAB PO SCH (09:25)
[2021-04-01] MEDS: ISOSORBIDE MONO EXTENDED REL 30 MG TABCR PO SCH (09:27)
[2021-04-01] MEDS: CARBIDOPA/LEVODOPA 25/100MG TAB PO SCH ×6 (09:29→21:45)
[2021-04-01] MEDS: ESCITALOPRAM OXALATE 10 MG TAB PO SCH (09:31)
[2021-04-01] MEDS: POLYETHYLENE (MIRALAX) 17 GM PACK PO SCH (09:31)
[2021-04-01] MEDS: CALCIUM 600MG + VIT D 400 IU TAB PO SCH (09:32)
[2021-04-01] MEDS: RIVASTIGMINE TARTRATE 1.5 MG CAP PO SCH ×2 (09:32→20:07)
[2021-04-01] MEDS: HEPARIN SOD 5,000 UNIT/0.5 ML VIAL SQ SCH ×2 (09:32→20:07)
--- NOTE | 2021-04-01 09:44 | Orthopedic Progress Note ---
Date of Service April 01, 2021 Assessment & Plan (1) Hip fracture: Plan: The patient is a 81 year old male who sustained a Traumatic Osteoporotic fracture of left femoral neck in setting of ground level fall. Discussed options with the patient and daughter (Aurelia Pascual, POA) which include non-operative versus surgical intervention with left hip pal arthroplasty. The risks and benefits of each were discussed. Understands that due to Parkinson's the patient is high risk for dislocation with surgery. They understand that the patient is at high risk to become wheel chair bound with or without surgery, but want to give him the best chance to be able to ambulate in the future. After orthopedic consult discussing the patients treatment options of conservative versus surgical intervention, the patient and family have agreed for a planned hemiarthroplasty. Since the patient was ambulatory prior to the injury and to avoid the risks of bed sores, pulmonary complications, and to give the patient the best chance for ambulation, the family understanding the risks wished to proceed with surgery. The patient and family understands the risks of surgery, which include but are not limited to: bleeding, infection, re- operation, damage to nerves and arteries, continued pain, failure of the hardware, fracture, dislocation, DVT, [place], PE, stroke, and . In addition the family is aware of the 20-30% morbidity associated with hip fracture for up to 1 year following a hip fracture. The patient and family understands all of these instructions and explanations, all of their questions have been satisfactorily addressed. The patient and family have elected to proceed with surgery and the informed consent was signed with 2 witness via telephone with his POA. The left hip has been initialled. The patient will have a Lang placed in OR. Continue pain control. NPO with sips with meds. The patient has been placed on the add-on list for later today. Will plan to proceed with surgery if medically cleared. Present on Admission?: Yes Admission and Anticipated Discharge Date Admission Date: March 31, 2021 Subjective No complaints Review of Systems Review of Systems: All systems reviewed & are unremarkable except as noted in HPI & below Physical Exam Physical Exam: AAO to self, seem s more alert and answers questions this am. Patient is resting comfortably in bed. Resting tremor of the the upper extremities. LLE: spontaneously moves toes and ankle. 1+ DP pulse. Sensation to light touch intact. Small abrasion over anterior knee. No pain with gentle motion of leg, knee, hip. Caldf is soft and non-tender Results & Data ([facility]) Vital Signs (Past 12 Hours) Vital Signs Temp Pulse Pulse Resp BP Pulse Ox 04/01/21 07:10 36.8 C 81 20 190/84 H 92 03/31/21 23:17 37 C 75 18 168/79 H 96
[2021-04-01] MEDS ORDERED: fentaNYL citrate 100 MCG/2 ML VIAL ONE (10:55)
--- NOTE | 2021-04-01 11:04 | Hospitalist Progress Note ---
Date of Service April 01, 2021 Assessment & Plan (1) Hip fracture: Plan: Impacted and mildly displaced subcapital fracture of the left femur - Acute s/p fall - Appreciate orthopaedics consultation-plan now for surgical repair on 04/01 - Tylenol for pain - narcotic if needed - minimize benzo - PT/OT consult pending orthopaedics recs. Preoperative ECG reviewed and normal sinus rhythm. He does not appear to have any chest discomfort or acute coronary syndrome. Otherwise laboratory values acceptable, blood pressure is mildly high but he just took antihypertensives this morning and this should improve. Do not believe his deep brain stimulator is activated yet as per notes? Defer to anesthesiology for pacer and deep brain stimulator management intraoperatively. As per ACS NSQIP surgical risk calculator, he is not average risk for serious complication or any complication, average risk for cardiac complication, and 3.3% risk of . He is above average risk for postoperative delirium at 30%. He should proceed with hip repair urgently as planned. Family is agreeable and consent was obtained by orthopedic surgery over the phone with his family. (2) S/P deep brain stimulator placement: Plan: Placed for his parkinsons disease - was to go next week to get settings and activated (3) Parkinson disease: Plan: Continue carbidopa-levodopa and rivastigmine (4) CAD (coronary artery disease): Plan: CAD with bypass surgery - Continue isosorbide - Continue atorvastatin - Continue Metoprolol ECG here without acute ischemic changes (5) Leukocytosis: Plan: No other infectious signs or symptoms- this is likely related to fall injury Now resolved (6) Dementia: Plan: Dementia with some overlapping delirium following hospitalizations - Patient does get confused at night and is used to going up to the bathroom - Will place patient on 1:1 observation for assistance and safety while admitted, but this can likely be discontinued but we will see how he is doing after surgery (7) Communication deficit: Plan: Improves later in the day for a few hours - continue his cabidopa/levodopa and rivastigmine (8) Depression: Plan: Continue escitalopram 10mg PO daily Plan: Disposition-continued stay DVT prophylaxis to be determined by orthopedic surgery Patient is listed as a full code Admission and Anticipated Discharge Date Admission Date: March 31, 2021 Subjective Patient resting but did wake up and I told him his family had discussed with the surgeon about repairing his hip and he is in agreement with surgery. He is unable to verbalize any other concerns. I discussed his case with the anesthesiologist. ECG reviewed and is normal sinus rhythm, no ischemic changes, patient does not appear to be in any discomfort. He was able to swallow his BP pills and Sinemet this morning with small sips of water as per nursing. Review of Systems Review of Systems: All systems reviewed & are unremarkable except as noted in HPI & below Physical Exam Constitutional: WD/WN, vitals as above Eyes: + anicteric sclerae Neck: trachea midline, no thyromegaly Respiratory: normal respiratory effort, lungs clear to auscultation Cardiovascular: RRR, no murmur, no edema Chest (Breasts): Chest: + pacemaker (And DBS implant subcutaneous anterior chest) Gastrointestinal (Abdomen): normal bowel sounds, soft, nontender, no hepatosplenomegaly Musculoskeletal: Extremities: extremities normal to inspection; no cyanosis and no clubbing Skin: no rashes, warm and dry Neurologic: moves all extremities and awake; no focal motor deficits Motor/Sensory: + tremor (biLateral arms and hands) Lymphatic: no lymphedema Results & Data Results & Data ([facility]) Vital Signs (Past 12 Hours) Vital Signs Temp Pulse Pulse Resp BP BP Pulse Ox 04/01/21 10:47 36.6 C 72 18 192/93 H 90 04/01/21 07:10 36.8 C 81 20 190/84 H 92 03/31/21 23:17 37 C 75 18 168/79 H 96 Laboratory Results 04/01/21 04/01/21 04/01/21 Range/Units 05:38 05:38 05:38 WBC 9.81 (4.8-10.8) K/uL RBC 4.09 L (4.7-6.1) M/uL Hgb 12.7 L (14.0-18.0) g/dL Hct 37.4 L (42-52) % MCV 91.4 (80-100) fL MCH 31.1 (25-34) pg MCHC 34.0 (32-36) g/dL RDW Std Deviation 48.7 H (36.4-46.3) fL RDW Coeff of Jeremías 14.5 (11.5-14.5) % Plt Count 201 (130-400) K/uL MPV 8.4 (7.4-10.4) fL Immature Gran % (Auto) 0.3 % Neut % (Auto) 82.1 % Lymph % (Auto) 8.3 % [place] % (Auto) 6.0 % Eos % (Auto) 3.1 % Baso % (Auto) 0.2 % Neut # (Auto) 8.06 H (1.4-6.5) K/uL Lymph # (Auto) 0.81 L (1.2-3.4) K/uL [place] # (Auto) 0.59 (0.11-0.59) K/uL Eos # (Auto) 0.30 (0-0.5) K/uL Baso # (Auto) 0.02 (0-0.2) K/uL Immature Gran # (Auto) 0.03 H (0.00-0.02) K/uL Sodium 137 (136-145) mmol/L Potassium 4.5 D (3.5-5.1) mmol/L Chloride 103 (98-107) mmol/L Carbon Dioxide 28 (21-32) mmol/L Anion Gap 5.0 (3-11) BUN 13 (7-18) mg/dl Creatinine 0.73 (0.6-1.4) mg/dl Est Cr Clr Drug Dosing 84.2 ml/min Est GFR ( Amer) 99.4 ml/min Est GFR (Non-Af Amer) 85.8 ml/min BUN/Creatinine Ratio 17.8 (10-20) Glucose 102 H (70-99) mg/dl Calcium 9.0 (8.5-10.1) mg/dl Total Bilirubin (0.2-1) mg/dl AST (15-37) U/L ALT (12-78) U/L Alkaline Phosphatase (45-117) U/L Total Protein (6.4-8.2) gm/dl Albumin (3.4-5.0) gm/dl Globulin (2.5-4.0) gm/dl Albumin/Globulin Ratio (0.9-2) Lipase (73-393) U/L Urine Color Urine Appearance (Clear) Urine pH (4.5-7.5) Ur Specific Mc[place] (1.000-1.030) Urine Protein (Negative) Urine Glucose (UA) (Negative) Urine Ketones (Negative) Urine Blood (Negative) Urine Nitrite (Negative) Urine Bilirubin (Negative) Urine Urobilinogen (Negative) Ur Leukocyte Esterase (Negative) Nasal Screen MRSA (PCR) (Negative) COVID-19 Eval Order SARS-CoV-2 (PCR) (Negative) Blood Type Pending Antibody Screen Pending 04/01/21 03/31/21 03/31/21 Range/Units 00:30 20:50 11:58 WBC (4.8-10.8) K/uL RBC (4.7-6.1) M/uL Hgb (14.0-18.0) g/dL Hct (42-52) % MCV (80-100) fL MCH (25-34) pg MCHC (32-36) g/dL RDW Std Deviation (36.4-46.3) fL RDW Coeff of Jeremías (11.5-14.5) % Plt Count (130-400) K/uL MPV (7.4-10.4) fL Immature Gran % (Auto) % Neut % (Auto) % Lymph % (Auto) % [place] % (Auto) % Eos % (Auto) % Baso % (Auto) % Neut # (Auto) (1.4-6.5) K/uL Lymph # (Auto) (1.2-3.4) K/uL [place] # (Auto) (0.11-0.59) K/uL Eos # (Auto) (0-0.5) K/uL Baso # (Auto) (0-0.2) K/uL Immature Gran # (Auto) (0.00-0.02) K/uL Sodium (136-145) mmol/L Potassium (3.5-5.1) mmol/L Chloride (98-107) mmol/L Carbon Dioxide (21-32) mmol/L Anion Gap (3-11) BUN (7-18) mg/dl Creatinine (0.6-1.4) mg/dl Est Cr Clr Drug Dosing ml/min Est GFR ( Amer) ml/min Est GFR (Non-Af Amer) ml/min BUN/Creatinine Ratio (10-20) Glucose (70-99) mg/dl Calcium (8.5-10.1) mg/dl Total Bilirubin (0.2-1) mg/dl AST (15-37) U/L ALT (12-78) U/L Alkaline Phosphatase (45-117) U/L Total Protein (6.4-8.2) gm/dl Albumin (3.4-5.0) gm/dl Globulin (2.5-4.0) gm/dl Albumin/Globulin Ratio (0.9-2) Lipase (73-393) U/L Urine Color Yellow Urine Appearance Clear (Clear) Urine pH 8.5 H (4.5-7.5) Ur Specific [place] 1.012 (1.000-1.030) Urine Protein Negative (Negative) Urine Glucose (UA) Negative (Negative) Urine Ketones Negative (Negative) Urine Blood Negative (Negative) Urine Nitrite Negative (Negative) Urine Bilirubin Negative (Negative) Urine Urobilinogen Negative (Negative) Ur Leukocyte Esterase Negative (Negative) Nasal Screen MRSA (PCR) Negative (Negative) COVID-19 Eval Order SARS-CoV-2 (PCR) NEGATIVE (Negative) Blood Type Antibody Screen 03/31/21 03/31/21 03/31/21 Range/Units 11:58 11:12 11:12 WBC 12.54 H (4.8-10.8) K/uL RBC 4.16 L (4.7-6.1) M/uL Hgb 13.1 L (14.0-18.0) g/dL Hct 39.0 L (42-52) % MCV 93.8 (80-100) fL MCH 31.5 (25-34) pg MCHC 33.6 (32-36) g/dL RDW Std Deviation 49.5 H (36.4-46.3) fL RDW Coeff of Jeremías 14.5 (11.5-14.5) % Plt Count 232 (130-400) K/uL MPV 8.8 (7.4-10.4) fL Immature Gran % (Auto) 0.5 % Neut % (Auto) 83.6 % Lymph % (Auto) 10.7 % [place] % (Auto) 4.9 % Eos % (Auto) 0.3 % Baso % (Auto) 0.0 % Neut # (Auto) 10.48 H (1.4-6.5) K/uL Lymph # (Auto) 1.34 (1.2-3.4) K/uL [place] # (Auto) 0.62 H (0.11-0.59) K/uL Eos # (Auto) 0.04 (0-0.5) K/uL Baso # (Auto) 0.00 (0-0.2) K/uL Immature Gran # (Auto) 0.06 H (0.00-0.02) K/uL Sodium 138 (136-145) mmol/L Potassium 3.9 (3.5-5.1) mmol/L Chloride 105 (98-107) mmol/L Carbon Dioxide 31 (21-32) mmol/L Anion Gap 2.0 L (3-11) BUN 16 (7-18) mg/dl Creatinine 0.74 (0.6-1.4) mg/dl Est Cr Clr Drug Dosing 83.0 ml/min Est GFR ( Amer) 98.9 ml/min Est GFR (Non-Af Amer) 85.3 ml/min BUN/Creatinine Ratio 21.8 H (10-20) Glucose 98 (70-99) mg/dl Calcium 9.1 (8.5-10.1) mg/dl Total Bilirubin 1.9 H (0.2-1) mg/dl AST 35 (15-37) U/L ALT 29 (12-78) U/L Alkaline Phosphatase 104 (45-117) U/L Total Protein 6.7 (6.4-8.2) gm/dl Albumin 3.6 (3.4-5.0) gm/dl Globulin 3.1 (2.5-4.0) gm/dl Albumin/Globulin Ratio 1.2 (0.9-2) Lipase 127 (73-393) U/L Urine Color Urine Appearance (Clear) Urine pH (4.5-7.5) Ur Specific [place] (1.000-1.030) Urine Protein (Negative) Urine Glucose (UA) (Negative) Urine Ketones (Negative) Urine Blood (Negative) Urine Nitrite (Negative) Urine Bilirubin (Negative) Urine Urobilinogen (Negative) Ur Leukocyte Esterase (Negative) Nasal Screen MRSA (PCR) (Negative) COVID-19 Eval Order Covid19 at [facility] SARS-CoV-2 (PCR) (Negative) Blood Type Antibody Screen PG Care Time/CCT Total # of Minutes Spent Total Time Spent with Patient: Total time spent is greater than 50% in coordination of care (as documented) at patient's floor/unit and/or counseling patient: Coding Level of Care Code 41200 Subseq Hosp Care Lvl 3 Diagnoses Hip fracture S72.009A S/P deep brain stimulator placement Z96.89 Parkinson disease G20 CAD (coronary artery disease) I25.10 Leukocytosis D72.829 Dementia F03.90 Communication deficit F80.9 Depression F32.A
--- NOTE | 2021-04-01 11:09 | Anesthesiology Consultation ---
Date of Service April 01, 2021 Assessment & Plan (1) Encounter for pre-operative examination: Chart Review Chart Review: Acceptable Risk for Surgery and Patient NOT seen in Pre Admission Testing Consults Requested none History Surgery Operation Date: 04/01/21 12:00 Proposed Procedures p Bipolar Hip Prosthesis(Left) - Jose Antonio Zamora MD Height/Weight Height: 6 ft Weight: 79 kg Allergies Allergy/AdvReac Type Severity Reaction Status Date / Time amoxicillin Allergy Severe LIVER Verified 03/31/21 12:45 REACTION, BECAME JAUNDICE clavulanic acid Allergy Severe LIVER Verified 03/31/21 12:45 REACTION, JAUNDICE Quinolones Allergy Mild LIVER, Verified 03/31/21 12:45 JAUNDICE; ALLERGY TO CIPRO, LEVAQUIN, & MOXIFLOXACIN Medications Home Medications Medication Instructions Recorded Confirmed Last Taken atorvastatin 40 mg tablet (Lipitor) 40 mg PO HS 09/01/18 03/31/21 10/11/18 calcium carb,cit ER 600 mg-vit D3 1 tab PO DAILY 09/01/18 03/31/21 10/11/18 12.5 mcg (500 unit) tablet,ext.rel carbidopa 25 mg-levodopa 100 mg 2 tab PO 6XD 09/01/18 03/31/21 10/11/18 tablet isosorbide mononitrate 30 mg 30 mg PO DAILY 09/01/18 03/31/21 10/11/18 tablet,extended release 24 hr lactobacillus combination no.4 3 3 mmu cells PO BID 09/01/18 03/31/21 10/11/18 billion cell capsule (Probiotic) melatonin 5 mg tablet 10 mg PO HS 09/01/18 03/31/21 10/11/18 metoprolol succinate 50 mg capsule 75 mg PO DAILY 09/01/18 03/31/21 10/11/18 sprinkle, ext. release 24 hr multivitamin 1 tab PO DAILY 09/01/18 03/31/21 10/11/18 nitroglycerin 0.4 mg sublingual 0.4 mg SUBLINGUAL UD PRN 09/01/18 03/31/21 Unknown tablet (Nitrostat) polyethylene glycol 3350 17 gram 8.5 g PO DAILY 09/01/18 03/31/21 10/11/18 oral powder packet (Miralax) psyllium husk 3.4 gram/5.4 gram 1 dose PO DAILY 09/01/18 03/31/21 10/11/18 oral powder (Metamucil) escitalopram oxalate 10 mg tablet 10 mg PO DAILY 03/31/21 03/31/21 Unknown rivastigmine tartrate 6 mg capsule 6 mg PO BID 03/31/21 03/31/21 Unknown Active Medications Generic Name Dose Route Start Last Admin Trade Name Prasad PRN Reason Stop Dose Admin Atorvastatin Calcium 40 mg 03/31/21 21:00 03/31/21 22:17 Atorvastatin 40 Mg Tab PO 04/30/21 20:59 40 mg HS ROOSEVELT Administration Carbidopa/Levodopa 2 tab 03/31/21 21:30 04/01/21 09:29 Carbidopa/Levodopa 25/100mg Tab PO 04/30/21 21:29 2 tab 0900,1130,1400,1630,1900,2130 ROOSEVELT Administration Escitalopram Oxalate 10 mg 04/01/21 09:00 04/01/21 09:31 Escitalopram Oxalate 10 Mg Tab PO 05/01/21 08:59 10 mg DAILY ROOSEVELT Administration Heparin Sodium (Porcine) 5,000 units 03/31/21 21:00 04/01/21 09:32 Heparin Sod 5,000 Unit/0.5 Ml Vial SQ 04/30/21 20:59 Not Given Q12 ROOSEVELT Lactated Ringer's 1,000 mls @ 90 mls/hr 03/31/21 15:45 04/01/21 02:56 Lr IV 04/30/21 15:44 90 mls/hr .Q11H7M ROOSEVELT Administration Isosorbide Mononitrate 30 mg 04/01/21 09:00 04/01/21 09:27 Isosorbide [place] Extended Rel 30 Mg Tabcr PO 05/01/21 08:59 30 mg DAILY ROOSEVELT Administration Melatonin 9 mg 03/31/21 21:00 03/31/21 22:17 Melatonin 3 Mg Tab PO 04/30/21 20:59 9 mg HS ROOSEVELT Administration Metoprolol Succinate 75 mg 04/01/21 09:00 04/01/21 09:25 Metoprolol Succ 25mg Ext Rel Tab PO 05/01/21 08:59 75 mg DAILY ROOSEVELT Administration Morphine Sulfate 2 mg 03/31/21 16:23 04/01/21 01:30 Morphine Sulfate 2 Mg/Ml Carp IV 04/14/21 16:22 2 mg Q6 PRN Administration severe pain Multivitamins/Minerals 1 tab 04/01/21 09:00 04/01/21 09:32 Calcium 600mg + Vit D 400 Iu Tab PO 05/01/21 08:59 Not Given DAILY ROOSE[place]ELT Polyethylene Glycol 8.5 gm 04/01/21 09:00 04/01/21 09:31 Polyethylene (Miralax) 17 Gm Pack PO 05/01/21 08:59 Not Given DAILY ROOSEVELT Rivastigmine Tartrate 6 mg 04/01/21 09:00 04/01/21 09:32 Rivastigmine Tartrate 1.5 Mg Cap PO 05/01/21 08:59 Not Given BID R[place]T Past Medical History Medical History Anemia CAD (coronary artery disease) Communication deficit Dementia Depression Diverticulitis Pacemaker Parkinson disease Past Surgical History Surgical History Hx of CABG Status post deep brain stimulator placement Social History Smoking Status: Unknown if ever smoked Alcohol Intake Frequency Comment: unable to obtain hx from patient Physical Exam Vital Signs Last Vital Signs Temp 36.6 C 04/01/21 10:47 Pulse 72 04/01/21 10:47 Resp 18 04/01/21 10:47 BP 192/93 H 04/01/21 10:47 Pulse Ox 90 04/01/21 10:47 Testing Laboratory Results 04/01/21 05:38 04/01/21 05:38 Urine Color Yellow 03/31/21 20:50 Urine Appearance Clear (Clear) 03/31/21 20:50 Urine pH 8.5 (4.5-7.5) H 03/31/21 20:50 Ur Specific [place] 1.012 (1.000-1.030) 03/31/21 20:50 Urine Protein Negative (Negative) 03/31/21 20:50 Urine Glucose (UA) Negative (Negative) 03/31/21 20:50 Urine Ketones Negative (Negative) 03/31/21 20:50 Urine Nitrite Negative (Negative) 03/31/21 20:50 Ur Leukocyte Esterase Negative (Negative) 03/31/21 20:50 Electrocardiogram Date: 04/01/21 Findings: + NSR @ (72) Chest X-Ray Date: 03/31/21 XR chest 1V not portable CLINICAL HISTORY: Fall. COMPARISON STUDY: Chest radiograph September 01, 2018. FINDINGS: Patient is rotated. There are median sternotomy wires, mediastinal surgical clips and a stimulator device. No pneumothorax or pleural effusion is n oted. No evidence for pulmonary edema. Skin folds project over the right chest. No consolidation is identified. IMPRESSION: No acute cardiopulmonary findings. Rotated study. ACT 112: Negative or not required by law. Electronically signed by: Hai Li M.D. 03/31/2021 12:02 PM Dictated: 03/31/[address] OF THE HEAD WITHOUT CONTRAST CLINICAL HISTORY: Headache. COMPARISON STUDY: Head CT October 22, 2018. CT DOSE: 1041.13 mGy.cm TECHNIQUE: Helical axial images of the head were obtained without IV contrast. Automated exposure control was utilized for the study. A dose lowering technique was utilized adhering to the principles of ALARA. FINDINGS: Exam is mildly compromised by streak artifact from bilateral sti mulator leads. Hypodensity adjacent to the stimulator leads is likely from recent placement. Ventricular system is stable. Basal cisterns are patent. No extra axial collections are present. There are no findings to suggest acute dural sinus thrombosis or acute territorial infarct. There is no calvarial fracture. Gas within the left calvarial defect suggests recent placement. IMPRESSION: 1. No acute intracranial findings. 2. Exam mildly compromised by streak artifact from bilateral stimulator leads. ACT 112: Negative or not required by law. Electronically signed by: Hai Li M.D. 03/31/2021 1:44 PM Dictated: 03/31/21 1338Transcribed: 03/31/21 1338
[2021-04-01] MEDS ORDERED: ePHEDrine sulfate 50 MG/ML AMP IV PRN (11:17)
[2021-04-01] MEDS ORDERED: LABETALOL HCL IV 5 MG/ML 20ML IV PRN (11:17)
[2021-04-01] MEDS ORDERED: PHENYLEPHRINE 100MCG/ML 5ML SYR IV PRN (11:17)
[2021-04-01] MEDS ORDERED: ONDANSETRON INJ 2 MG/ML 2 ML VIAL IV PRN (11:17)
[2021-04-01] MEDS ORDERED: fentaNYL citrate 100 MCG/2 ML VIAL IV PRN (11:17)
[2021-04-01] MEDS ORDERED: ATROPINE SULFATE 0.1 MG/ML 10ML SYR IV PRN (11:17)
[2021-04-01] MEDS ORDERED: BUPIVACAINE 0.5 % 5 MG/1 ML MPF 30ML VIAL ONE (11:18)
[2021-04-01] MEDS ORDERED: LIDOCAINE/EPINEPHRINE 1% 20 ML VIAL ONE (11:19)
[2021-04-01] MEDS ORDERED: TRANEXAMIC ACID / 0.7% NACL 1,000 MG/100 ML BAG IV SCH (12:00)
[2021-04-01] MEDS ORDERED: CLINDAMYCIN 600 MG/54 ML BAG IV SCH (12:00)
[2021-04-01] MEDS ORDERED: ROCURONIUM BROMIDE 10 MG/ML 5 ML VIAL IV ONE (12:03)
[2021-04-01] MEDS ORDERED: ePHEDrine sulfate 50 MG/ML SYR ONE (12:03)
[2021-04-01] MEDS ORDERED: GLYCOPYRROLATE 0.2 MG/ML VIAL ONE (12:03)
[2021-04-01] MEDS ORDERED: LIDOCAINE 2% 2 ML VIAL/AMP(20MG/ML) INFIL ONE (12:03)
[2021-04-01] MEDS ORDERED: PHENYLEPHRINE 100MCG/ML 5ML SYR ONE (12:03)
[2021-04-01] MEDS ORDERED: NEOSTIGMINE METHYLSULFATE 1 MG/ML 10ML VIAL ONE (12:03)
[2021-04-01] MEDS ORDERED: PROPOFOL IV EMULSION 10 MG/ML 20 ML VIAL IV ONE (12:03)
[2021-04-01] MEDS ORDERED: ONDANSETRON INJ 2 MG/ML 2 ML VIAL ONE (12:03)
[2021-04-01] MEDS ORDERED: PHENYLEPHRINE HCL 10 MG/ML VIAL ONE (12:27)
--- NOTE | 2021-04-01 14:14 | Electrocardiogram Report ---
Test Reason : Blood Pressure : / mmHG Vent. Rate : 072 BPM Atrial Rate : 072 BPM P-R Int : 170 ms QRS Dur : 092 ms QT Int : 402 ms P-R-T Axes : 074 076 083 degrees QTc Int : 440 ms Normal sinus rhythm Normal ECG When compared with ECG of 01-SEP-2018 14:45, No significant change was found Confirmed by Ty Conner ([id number]) on 04/01/2021 2:13:52 PM Referred By: Lorne Gomez Confirmed By:Ty Conner
--- NOTE | 2021-04-01 14:24 | XRay Report ---
XR hip LT 1V CLINICAL HISTORY: INTRAOPERATIVE EXAM COMPARISON: Left hip radiographs March 31, 2021. FINDINGS: Intraoperative radiograph obtained during left hip arthroplasty is noted. Expected finding s are noted. IMPRESSION: Intraoperative radiograph obtained during left hip arthroplasty. ACT 112: Negative or not required by law. Electronically signed by: Hai Li M.D. 04/01/2021 2:22 PM
--- NOTE | 2021-04-01 14:34 | Post Operative Brief Note ---
Immediate Post Op Note v1 Date of Surgery April 01, 2021 Pre & Post Diagnosis Operation Date: 04/01/21 12:00 Pre-Op Diagnosis: Left Hip Fracture Post-Op Diagnosis: Left Hip Fracture I identified the patient and participated in the time-out.: Yes Procedure Operation Date: 04/01/21 12:00 Actual Procedures p Left Hip Jordon-Arthroplasty(Left) - Jose Antonio Zamora MD Surgeon Jose Antonio Zamora MD Manager Rental Kellie Dillard PA-C (No fellow avail) Estimated Blood Loss 175 Findings Consistent with Post-Op Diagnosis Fluids 1200 cc Specimens Left hip contents Drains Lang Catheter Anesthesia Type General Complications none
--- NOTE | 2021-04-01 14:35 | Operative Report ---
Post Operative Report Pre & Post Diagnosis Operation Date: 04/01/21 12:00 Pre-Op Diagnosis: Left Hip Fracture Post-Op Diagnosis: Left Hip Fracture I identified the patient and participated in the time-out.: Yes Procedure Operation Date: 04/01/21 12:00 Actual Procedures p Left Hip Jordon-Arthroplasty(Left) - Jose Antonio Zamora MD Surgeon Jose Antonio Zamora MD Inspector Health Care Facilities Kellie Dillard PA-C (No fellow avail) Estimated Blood Loss 175 Findings See Below Displaced left femoral neck fracture, comminuted Fluids 1200 cc Specimens Left hip contents Complications none Indications The patient is a 81 year old male who sustained a Traumatic Osteoporotic fractu re of left femoral neck in setting of ground level fall. After orthopedic consult discussing the patients treatment options of conservative versus surgical intervention, the patient and family agreed for a planned hemiarthroplasty. Since the patient was ambulatory prior to the injury and to avoid the risks of bed sores, pulmonary complications, and to give the patient the best chance for ambulation,the patient and family wished to proceed with surgery. The patient and family understands the risks of surgery, which include but are not limited to: bleeding, infection, re-operation, damage to nerves and arteries, continued pain, failure of the hardware, dislocation, DVT, and . In addition the patient and family is aware of the 20-30% morbidity associated with hip fracture for up to 1 year following a hip fracture. The patient and family understands all of these instructions and explanations, all of their questions have been satisfactorily addressed. The patient and family has e lected to proceed with surgery and the informed consent was signed via telephone consent with the patient's POA. Description of Procedure Kellie Dillard PA-C is assisting with positioning, retraction, and closure due to fellow not available. IMPLANTS: 1) LDFX Stem, Size 12, Cemented (Bhavani/Biomet). 2) Femoral Head 28mm Diameter, + 3.5 mm Neck Length. 3) 54 mm Multipolar Bipolar Cup. 4) 28 mm ID Liner, Multipolar Bipolar Cup. 5) Distal Centralizer 11 mm. 6) Simplex cement 2 ([place] Thin brickyker). PROCEDURE: The patient was taken to the Operating Room and placed in the lateral position with a saleh bag following general anesthesia administration. A multidisciplinary time-out was performed identifying my initials on the left lower limb as the correct and operative limb. Prior to the incision being made, 600 mg of intravenous Clindamycin were given. The left lower extremity was prepped in the standard fashion. The trochanter was marked as was the planned incision 1/3 proximal and 2/3 distal to the tip of the greater trochanter. The incisions were injected with a 50:50 mixture of 1% Lidocaine epi and 0.5% Bupivacaine plain for a total of 10cc. A standard posterior approach was made. The planned incision was carried down through the Tensor Fascia Monica, which was then split in-line with its fibers. The Gluteus Guerrero was bluntly dissected. The Piriformis and short external rotators were dissected off the capsule and femur and tagged for later repair. The fracture was easily identified as it had impaled the posterior capsule. The capsule was incised and freed off the fracture fragments. The Neck cut was made to allow removal of the femoral head and comminuted fragments. The femoral canal was prepared with Box osteotome, followed by a canal finder. The femur was sequentially broached in the standard fashion, and trial heads were placed. Fluoroscopy was brought in to ensure adequate proper alignment, fill of the canal, head size, and leg length. Fluoroscopy showed canal fill and good position. The trial components were removed and the wound and femoral canal were copiously irrigated and dried. The femur was cemented using 3rd generation technique followed by placement of the components in the standard fashion and the hip reduced. There was excellent stability with no sense of dislocation with 30 degrees adduction, flexion 90 degrees, and internal rotation to 35 degrees. The wounds were copiously irrigated. The External rotators and capsule were closed over bon bridges with #2 FiberWire. The Tensor Fascia Monica was closed with #1 Vicryl. The subcutaneous fat had a few stay sutures placed using 2-0 Vicryl. The subcutaneous tissue was closed with 3-0 Vicryl. The skin was closed with Zipline and shield. The incisions were covered with 4 x 4's, Tegaderm. The patient was transfer to her hospital bed and taken to the PACU in stable condition. The sponge and needle counts were correct. Post-op Instructions: The patient was admitted to back to the Med/Surg floor. Final x-rays will be obtained in the PACU. The patient will be WBAT with a walker and assistance. The patient will be seen by PT/OT. Total hip precautions will be followed. The patient's labs will be checked in the am. DVT prophylaxis will be with TEDs, mechanical devices and can use ASA as an outpatient. I attest to the content of the Intraoperative Record and any orders documented therein. Any exceptions are noted below.
--- NOTE | 2021-04-01 14:48 | Operative Report ---
Post Operative Report Pre & Post Diagnosis Operation Date: 04/01/21 12:00 Pre-Op Diagnosis: Left Hip Fracture Post-Op Diagnosis: Left Hip Fracture I identified the patient and participated in the time-out.: Yes Procedure Operation Date: 04/01/21 12:00 Actual Procedures p Left Hip Jordon-Arthroplasty(Left) - Jose Antonio Zamora MD Surgeon Jose Antonio Zamora M.D. Clinical Science Liaison Kellie Dillard PA-C (No fellow avail) Estimated Blood Loss 175 Findings Consistent with Post-Op Diagnosis Left hip femoral neck fracture Specimens Left femoral head Drains None Anesthesia Type General Description of Procedure Patient was taken to the operating room, placed under general anesthesia, given 600mg IV cleocin for DVT prophylaxis. Time out performed, prepped and draped in routine sterile fashion. I was present during the entire case, please see Dr. Zamora's operative report for further detail. I assisted with tissue retraction, positioning, trialing of implants, implantation of hardware, closure and dressings. Patient was awakened and taken to the recovery room in stable condition. I attest to the content of the Intraoperative Record and any orders documented therein. Any exceptions are noted below.
--- NOTE | 2021-04-01 15:15 | Anesthesiology Progress Note ---
Date of Service April 01, 2021 Anesthesia Post Procedure Vital Signs Vital Signs: Temp Pulse Pulse Pulse Pulse Resp BP 04/01/21 15:05 87 20 04/01/21 14:55 87 15 04/01/21 14:48 37.1 C 90 16 04/01/21 10:47 36.6 C 72 18 04/01/21 07:10 36.8 C 81 20 03/31/21 23:17 37 C 75 18 03/31/21 20:19 79 18 167/85 H 03/31/21 19:42 79 18 03/31/21 17:00 81 18 BP BP Pulse Ox 04/01/21 15:05 115/43 L 100 04/01/21 14:55 136/73 100 04/01/21 14:48 134/60 99 04/01/21 10:47 192/93 H 90 04/01/21 07:10 190/84 H 92 03/31/21 23:17 168/79 H 96 03/31/21 20:19 95 03/31/21 19:42 167/85 H 95 03/31/21 17:00 162/82 H 95 Pain Intensity Left Hip: Pain Intensity: 1 Transfer of Care Handoff Completed per policy Notes Mental Status: alert / awake / arousable Patient Amnestic to Procedure: Yes Nausea / Vomiting: adequately controlled Pain: adequately controlled Airway Patency, RR, SpO2: stable & adequate BP & HR: stable & adequate Hydration State: stable & adequate Anesthetic Complications: no major complications apparent and Pt Satisfied with anesthetic care Notes: The patient is awake and comfortable at his baseline. He stated "good" when asked how he felt. His vital signs are stable.
--- NOTE | 2021-04-01 15:23 | XRay Report ---
XR hip LT 1V CLINICAL HISTORY: Post-Operative implant position COMPARISON: Left hip radiographs March 31, 2021. FINDINGS: Alignment of the left hip arthroplasty is anatomic. No periprosthetic fracture or unexpect ed radiopaque foreign body. IMPRESSION: Expected findings following left hip arthroplasty. ACT 112: Negative or not required by law. Electronically signed by: Hai Li M.D. 04/01/2021 3:22 PM
[2021-04-01] MEDS ORDERED: NALOXONE HCL 0.4 MG/1 ML VIAL/CARP IV PRN (15:43)
[2021-04-01] MEDS ORDERED: MoRPHine SULFATE 2 MG/ML CARP IV PRN (17:50)
[2021-04-01] MEDS: CLINDAMYCIN 600 MG in DEXTROSE 5% 50 ML IV SCH (19:54)
[2021-04-01] MEDS: ATORVASTATIN 40 MG TAB PO SCH (20:07)
[2021-04-01] MEDS: MELATONIN 3 MG TAB PO SCH (20:07)
[2021-04-02] MEDS: LACTATED RINGER'S 1,000 ML IV SCH (03:52)
[2021-04-02] MEDS: CLINDAMYCIN 600 MG in DEXTROSE 5% 50 ML IV SCH ×2 (04:24→11:56)
[2021-04-02 07:21] LABS: Basophils # (auto) 0.01 K/uL (0-0.2); Basophils % (auto) 0.1 %; Eosinophils # (auto) 0.25 K/uL (0-0.5); Eosinophils % (auto) 3.3 %; Hematocrit (blood only) 28.6 % (42-52); Hemoglobin 9.7 g/dL (14.0-18.0); Lymphocytes # (auto) 0.63 K/uL (1.2-3.4); Lymphocytes % (auto) 8.3 %; Mean Corpuscular Hemoglobin 31.4 pg (25-34); Mean Corpuscular Hgb Conc 33.9 g/dL (32-36); Mean Corpuscular Volume 92.6 fL (80-100); Mean Platelet Volume 8.5 fL (7.4-10.4); Monocytes # (auto) 0.65 K/uL (0.11-0.59); Monocytes % (auto) 8.6 %; Neutrophils # (auto) 6.01 K/uL (1.4-6.5); Neutrophils % (auto) 79.7 %; Platelet Count 176 K/uL (130-400); RDW Coefficient of Variation 14.7 % (11.5-14.5); RDW Standard Deviation 49.7 fL (36.4-46.3); Red Blood Count 3.09 M/uL (4.7-6.1); White Blood Count 7.55 K/uL (4.8-10.8)
[2021-04-02 07:48] LABS: BUN Creatinine Ratio 21.2 (10-20); Calcium 8.2 mg/dl (8.5-10.1); Creatinine Clr Calc Pharmacy 77.8 ml/min; Est GFR (African American) 96.2 ml/min
[2021-04-02] MEDS: ESCITALOPRAM OXALATE 10 MG TAB PO SCH (09:26)
[2021-04-02] MEDS: CARBIDOPA/LEVODOPA 25/100MG TAB PO SCH ×6 (09:26→21:16)
[2021-04-02] MEDS: METOPROLOL SUCC 25MG EXT REL TAB PO SCH (09:26)
[2021-04-02] MEDS: ISOSORBIDE MONO EXTENDED REL 30 MG TABCR PO SCH (09:27)
[2021-04-02] MEDS: CALCIUM 600MG + VIT D 400 IU TAB PO SCH (09:30)
[2021-04-02] MEDS: RIVASTIGMINE TARTRATE 1.5 MG CAP PO SCH ×2 (09:31→19:44)
[2021-04-02] MEDS: POLYETHYLENE (MIRALAX) 17 GM PACK PO SCH (09:32)
[2021-04-02] MEDS: HEPARIN SOD 5,000 UNIT/0.5 ML VIAL SQ SCH ×2 (09:39→19:43)
--- NOTE | 2021-04-02 10:08 | Orthopedic Progress Note ---
Date of Service April 02, 2021 Assessment & Plan (1) Hip fracture: Plan: POD #1 s/p left hip hemiarthroplasty, doing as well as expected. Resume diet. WBAT with walker and assistance. OOB to chair. Continue pain control. Check labs tomorrow. DVT prophylaxis: TEDs 3 weeks, SCDs while in hospital. May use ASA as an outpatient from ortho stand point. PT/OT. Total hip precautions D/C planning. Continue care per primary service. Present on Admission?: Yes Admission and Anticipated Discharge Date Admission Date: March 31, 2021 Subjective No complaints Physical Exam Musculoskeletal: Hip: + surgical drain present (Clean, dry, intact) LLE: Nuerovascularly intact. calf soft, non-tender Abduction pillow in place Results & Data ([facility]) Vital Signs (Past 12 Hours) Vital Signs Temp Pulse Pulse Resp BP Pulse Ox 04/02/21 09:17 36.4 C L 82 16 161/68 H 98 04/02/21 03:26 36.5 C 97 H 22 162/74 H 95 04/01/21 22:42 37.3 C 91 H 18 132/67 96 Laboratory Results 04/02/21 04/02/21 04/02/21 Range/Units 06:13 06:13 06:13 WBC 7.55 (4.8-10.8) K/uL RBC 3.09 L (4.7-6.1) M/uL Hgb 9.7 L D (14.0-18.0) g/dL Hct 28.6 L (42-52) % MCV 92.6 (80-100) fL MCH 31.4 (25-34) pg MCHC 33.9 (32-36) g/dL RDW Std Deviation 49.7 H (36.4-46.3) fL RDW Coeff of Jeremías 14.7 H (11.5-14.5) % Plt Count 176 (130-400) K/uL MPV 8.5 (7.4-10.4) fL Immature Gran % (Auto) 0.0 % Neut % (Auto) 79.7 % Lymph % (Auto) 8.3 % [place] % (Auto) 8.6 % Eos % (Auto) 3.3 % Baso % (Auto) 0.1 % Neut # (Auto) 6.01 (1.4-6.5) K/uL Lymph # (Auto) 0.63 L (1.2-3.4) K/uL [place] # (Auto) 0.65 H (0.11-0.59) K/uL Eos # (Auto) 0.25 (0-0.5) K/uL Baso # (Auto) 0.01 (0-0.2) K/uL Immature Gran # (Auto) 0.00 (0.00-0.02) K/uL Sodium 134 L (136-145) mmol/L Potassium 4.0 (3.5-5.1) mmol/L Chloride 101 (98-107) mmol/L Carbon Dioxide 29 (21-32) mmol/L Anion Gap 4.0 (3-11) BUN 17 (7-18) mg/dl Creatinine 0.79 (0.6-1.4) mg/dl Est Cr Clr Drug Dosing 77.8 ml/min Est GFR ( Amer) 96.2 ml/min Est GFR (Non-Af Amer) 83.0 ml/min BUN/Creatinine Ratio 21.2 H (10-20) Glucose 121 H (70-99) mg/dl Calcium 8.2 L (8.5-10.1) mg/dl 25-OH Vitamin D Total Pending Blood Type Antibody Screen 04/01/21 Range/Units 05:38 WBC (4.8-10.8) K/uL RBC (4.7-6.1) M/uL Hgb (14.0-18.0) g/dL Hct (42-52) % MCV (80-100) fL MCH (25-34) pg MCHC (32-36) g/dL RDW Std Deviation (36.4-46.3) fL RDW Coeff of Jeremías (11.5-14.5) % Plt Count (130-400) K/uL MPV (7.4-10.4) fL Immature Gran % (Auto) % Neut % (Auto) % Lymph % (Auto) % [place] % (Auto) % Eos % (Auto) % Baso % (Auto) % Neut # (Auto) (1.4-6.5) K/uL Lymph # (Auto) (1.2-3.4) K/uL [place] # (Auto) (0.11-0.59) K/uL Eos # (Auto) (0-0.5) K/uL Baso # (Auto) (0-0.2) K/uL Immature Gran # (Auto) (0.00-0.02) K/uL Sodium (136-145) mmol/L Potassium (3.5-5.1) mmol/L Chloride (98-107) mmol/L Carbon Dioxide (21-32) mmol/L Anion Gap (3-11) BUN (7-18) mg/dl Creatinine (0.6-1.4) mg/dl Est Cr Clr Drug Dosing ml/min Est GFR ( Amer) ml/min Est GFR (Non-Af Amer) ml/min BUN/Creatinine Ratio (10-20) Glucose (70-99) mg/dl Calcium (8.5-10.1) mg/dl 25-OH Vitamin D Total Blood Type O Positive Antibody Screen NEGATIVE Diagnostic Findings XR hip LT 1V CLINICAL HISTORY: Post-Operative implant position COMPARISON: Left hip radiographs March 31, 2021. FINDINGS: Alignment of the left hip arthroplasty is anatomic. No periprosthetic fracture or unexpected radiopaque foreign body. IMPRESSION: Expected findings following left hip arthroplasty.
--- NOTE | 2021-04-02 13:45 | Hospitalist Progress Note ---
Date of Service April 02, 2021 Assessment & Plan (1) Hip fracture: Plan: Impacted and mildly displaced subcapital fracture of the left femur - Acute s/p fall - Appreciate orthopaedics consultation-now status post surgical repair on 04/01 -Doing fairly well postoperatively, not much delirium -EBL 175 mL and hemoglobin dropped to 9.7-some of this is likely acute blood loss anemia from bleeding prior to surgery as well as hemodilution from IV fluids - Tylenol and IV morphine as needed for pain --PT/OT -Lang catheter to be removed today -Follow CBC, BMP in the morning -DVT prophylaxis with Shweta Arenas, and will discontinue heparin SQ and start aspirin 81 mg p.o. twice daily as recommended by orthopedics (2) S/P deep brain stimulator placement: Plan: Placed for his parkinsons disease - was to go next week to get settings and activated -Still has sutures in place on the top of his scalp-patient reports that he was supposed to have these removed on Wednesday 04/04-on Saturday would double check with family or call his neurosurgeon at [facility] to confirm (3) Parkinson disease: Plan: Continue carbidopa-levodopa and rivastigmine With deep brain stimulator in place but not activated yet (4) CAD (coronary artery disease): Plan: CAD with bypass surgery - Continue isosorbide - Continue atorvastatin - Continue Metoprolol ECG here without acute ischemic changes -Aspirin is not on his home medication list but is being added as above for DVT prophylaxis (5) Leukocytosis: Plan: No other infectious signs or symptoms- this is likely related to fall injury Now resolved (6) Dementia: Plan: Dementia with some overlapping delirium following hospitalizations - Patient does get confused at night and is used to going up to the bathroom Doing remarkably well status post surgery (7) Communication deficit: Plan: Improves later in the day for a few hours - continue his cabidopa/levodopa and rivastigmine (8) Depression: Plan: Continue escitalopram 10mg PO daily (9) Hyponatremia: Plan: Mild at 134 Continue to encourage p.o. hydration Follow BMP in the morning (10) Acute blood loss anemia: Plan: Hemoglobin dropped from 12.7 down to 9.7 Hemodynamically stable Likely acute blood loss anemia secondary to bleeding from fracture prior to surgery, some EBL during surgery, and hemodilution from IV fluids Follow CBC in the morning Plan: Disposition-continued stay, but likely back to [facility] where he resides for rehab in the next 1 to 2 days DVT prophylaxis 81 mg p.o. twice daily, SCDs, MISSY magallon Full code Admission and Anticipated Discharge Date Admission Date: March 31, 2021 Subjective Patient has been doing fairly well today, eating and drinking, taking his pills. He does tell me that he has no pain. He is starting become a little bit more confused as the day goes on as per nursing. He is off the one-to-one sitter. Review of Systems Review of Systems: All systems reviewed & are unremarkable except as noted in HPI & below Physical Exam Constitutional: WD/WN, vitals as above Eyes: + anicteric sclerae Neck: trachea midline, no thyromegaly Respiratory: normal respiratory effort, lungs clear to auscultation Cardiovascular: RRR, no murmur, no edema Chest (Breasts): Chest: + pacemaker (And DBS implant subcutaneous anterior chest) Gastrointestinal (Abdomen): normal bowel sounds, soft, nontender, no hepatosplenomegaly Musculoskeletal: Extremities: + extremities abnormal to inspection (Left hip with dressing in place), no cyanosis and no clubbing Skin: no rashes, warm and dry + wound (2 surgical incisions top of head with sutures in place well-healed) Neurologic: moves all extremities and awake; no focal motor deficits Motor/Sensory: + tremor (biLateral arms and hands) Lymphatic: no lymphedema Results & Data Results & [facility] ([facility]) Vital Signs (Past 12 Hours) Vital Signs Temp Pulse Pulse Resp BP Pulse Ox 04/02/21 09:17 36.4 C L 82 16 161/68 H 98 04/02/21 03:26 36.5 C 97 H 22 162/74 H 95 Laboratory Results 04/02/21 04/02/21 04/02/21 Range/Units 06:13 06:13 06:13 WBC 7.55 (4.8-10.8) K/uL RBC 3.09 L (4.7-6.1) M/uL Hgb 9.7 L D (14.0-18.0) g/dL Hct 28.6 L (42-52) % MCV 92.6 (80-100) fL MCH 31.4 (25-34) pg MCHC 33.9 (32-36) g/dL RDW Std Deviation 49.7 H (36.4-46.3) fL RDW Coeff of Jeremías 14.7 H (11.5-14.5) % Plt Count 176 (130-400) K/uL MPV 8.5 (7.4-10.4) fL Immature Gran % (Auto) 0.0 % Neut % (Auto) 79.7 % Lymph % (Auto) 8.3 % [place] % (Auto) 8.6 % Eos % (Auto) 3.3 % Baso % (Auto) 0.1 % Neut # (Auto) 6.01 (1.4-6.5) K/uL Lymph # (Auto) 0.63 L (1.2-3.4) K/uL [place] # (Auto) 0.65 H (0.11-0.59) K/uL Eos # (Auto) 0.25 (0-0.5) K/uL Baso # (Auto) 0.01 (0-0.2) K/uL Immature Gran # (Auto) 0.00 (0.00-0.02) K/uL Sodium 134 L (136-145) mmol/L Potassium 4.0 (3.5-5.1) mmol/L Chloride 101 (98-107) mmol/L Carbon Dioxide 29 (21-32) mmol/L Anion Gap 4.0 (3-11) BUN 17 (7-18) mg/dl Creatinine 0.79 (0.6-1.4) mg/dl Est Cr Clr Drug Dosing 77.8 ml/min Est GFR ( Amer) 96.2 ml/min Est GFR (Non-Af Amer) 83.0 ml/min BUN/Creatinine Ratio 21.2 H (10-20) Glucose 121 H (70-99) mg/dl Calcium 8.2 L (8.5-10.1) mg/dl 25-OH Vitamin D Total Pending PG Care Time/CCT Total # of Minutes Spent Total Time Spent with Patient: Total time spent is greater than 50% in coordination of care (as documented) at patient's floor/unit and/or counseling patient: Coding Level of Care Code 45402 Subseq Hosp Care Lvl 2 Diagnoses Hip fracture S72.009A S/P deep brain stimulator placement Z96.89 Parkinson disease G20 CAD (coronary artery disease) I25.10 Leukocytosis D72.829 Dementia F03.90 Communication deficit F80.9 Depression F32.A Hyponatremia E87.1 Acute blood loss anemia D62
[2021-04-02] MEDS: ATORVASTATIN 40 MG TAB PO SCH (19:43)
[2021-04-02] MEDS: MELATONIN 3 MG TAB PO SCH (21:16)
[2021-04-03 06:29] LABS: Basophils # (auto) 0.01 K/uL (0-0.2); Basophils % (auto) 0.1 %; Eosinophils # (auto) 0.18 K/uL (0-0.5); Eosinophils % (auto) 2.3 %; Hematocrit (blood only) 28.7 % (42-52); Hemoglobin 9.8 g/dL (14.0-18.0); Immature Granulocytes # (auto) 0.02 K/uL (0.00-0.02); Immature Granulocytes % (auto) 0.3 %; Lymphocytes # (auto) 0.82 K/uL (1.2-3.4); Lymphocytes % (auto) 10.6 %; Mean Corpuscular Hemoglobin 30.8 pg (25-34); Mean Corpuscular Hgb Conc 34.1 g/dL (32-36); Mean Corpuscular Volume 90.3 fL (80-100); Mean Platelet Volume 8.5 fL (7.4-10.4); Monocytes # (auto) 0.82 K/uL (0.11-0.59); Monocytes % (auto) 10.6 %; Neutrophils # (auto) 5.87 K/uL (1.4-6.5); Neutrophils % (auto) 76.1 %; Platelet Count 171 K/uL (130-400); RDW Coefficient of Variation 14.2 % (11.5-14.5); RDW Standard Deviation 47.6 fL (36.4-46.3); Red Blood Count 3.18 M/uL (4.7-6.1); White Blood Count 7.72 K/uL (4.8-10.8)
[2021-04-03 07:14] LABS: BUN Creatinine Ratio 22.3 (10-20); Calcium 8.2 mg/dl (8.5-10.1); Creatinine Clr Calc Pharmacy 71.4 ml/min; Est GFR (African American) 92.9 ml/min; Est GFR (Non-African American) 80.2 ml/min; Potassium 3.9 mmol/L (3.5-5.1)
[2021-04-03] MEDS: ASPIRIN 81 MG ECTAB PO SCH ×2 (08:33→21:05)
[2021-04-03] MEDS: CALCIUM 600MG + VIT D 400 IU TAB PO SCH (08:34)
[2021-04-03] MEDS: ISOSORBIDE MONO EXTENDED REL 30 MG TABCR PO SCH (08:34)
[2021-04-03] MEDS: METOPROLOL SUCC 25MG EXT REL TAB PO SCH (08:34)
[2021-04-03] MEDS: CARBIDOPA/LEVODOPA 25/100MG TAB PO SCH ×6 (08:34→21:05)
[2021-04-03] MEDS: ESCITALOPRAM OXALATE 10 MG TAB PO SCH (08:34)
[2021-04-03] MEDS: RIVASTIGMINE TARTRATE 1.5 MG CAP PO SCH ×2 (08:34→21:05)
[2021-04-03] MEDS: POLYETHYLENE (MIRALAX) 17 GM PACK PO SCH (08:35)
--- NOTE | 2021-04-03 09:44 | Orthopedic Progress Note ---
Date of Service April 03, 2021 Assessment & Plan (1) Hip fracture: Plan: POD #2 s/p left hip hemiarthroplasty, doing as well as expected. Resume diet. WBAT with walker and assistance. OOB to chair. Continue pain control. Acute anemia blood loss, Hgb stable 9.8. DVT prophylaxis: TEDs 3 weeks, SCDs while in hospital. ASA 81mg BID for 6 weeks. PT/OT. Total hip precautions D/C planning. Will switch dressing to Silverlon later today. Ok to discharge from ortho stand point, follow up in Dr. Zamora's office in 2 weeks for ZipLine removal. Continue care per primary service. Admission and Anticipated Discharge Date Admission Date: March 31, 2021 Subjective No complaints Review of Systems Review of Systems: Unobtainable due to cognitive status Physical Exam Physical Exam: AAO to self. Patient is resting comfortably in bed. Resting tremor of the the upper extremities. LLE: spontaneously moves toes and ankle. 1+ DP pulse. Sensation to light touch intact. Small abrasion over anterior knee, unchanged. No pain with gentle motion of leg, knee, hip. Calf is soft and non-tender Abduction pillow in place Dressing: clean, dry, intact. Results & Data ([facility]) Vital Signs (Past 12 Hours) Vital Signs Temp Pulse Resp BP Pulse Ox 04/03/21 07:20 36.7 C 95 H 19 158/67 H 89 L 04/02/21 22:56 37 C 81 16 125/63 91 Laboratory Results 04/03/21 04/03/21 04/02/21 Range/Units 06:03 06:03 06:13 WBC 7.72 (4.8-10.8) K/uL RBC 3.18 L (4.7-6.1) M/uL Hgb 9.8 L (14.0-18.0) g/dL Hct 28.7 L (42-52) % MCV 90.3 (80-100) fL MCH 30.8 (25-34) pg MCHC 34.1 (32-36) g/dL RDW Std Deviation 47.6 H (36.4-46.3) fL RDW Coeff of Jeremías 14.2 (11.5-14.5) % Plt Count 171 (130-400) K/uL MPV 8.5 (7.4-10.4) fL Immature Gran % (Auto) 0.3 % Neut % (Auto) 76.1 % Lymph % (Auto) 10.6 % [place] % (Auto) 10.6 % Eos % (Auto) 2.3 % Baso % (Auto) 0.1 % Neut # (Auto) 5.87 (1.4-6.5) K/uL Lymph # (Auto) 0.82 L (1.2-3.4) K/uL [place] # (Auto) 0.82 H (0.11-0.59) K/uL Eos # (Auto) 0.18 (0-0.5) K/uL Baso # (Auto) 0.01 (0-0.2) K/uL Immature Gran # (Auto) 0.02 (0.00-0.02) K/uL Sodium 138 (136-145) mmol/L Potassium 3.9 (3.5-5.1) mmol/L Chloride 103 (98-107) mmol/L Carbon Dioxide 27 (21-32) mmol/L Anion Gap 8.0 (3-11) BUN 19 H (7-18) mg/dl Creatinine 0.86 (0.6-1.4) mg/dl Est Cr Clr Drug Dosing 71.4 ml/min Est GFR ( Amer) 92.9 ml/min Est GFR (Non-Af Amer) 80.2 ml/min BUN/Creatinine Ratio 22.3 H (10-20) Glucose 98 (70-99) mg/dl Calcium 8.2 L (8.5-10.1) mg/dl 25-OH Vitamin D Total 22.5 L (30-100) ng/ml
[2021-04-03] MEDS ORDERED: traMADol HCL 50 MG TABLET PO PRN (12:23)
[2021-04-03] MEDS ORDERED: MoRPHine SULFATE 2 MG/ML CARP IV PRN (12:26)
[2021-04-03 13:32] LABS: Alanine Aminotransferase < 6 U/L (12-78); Albumin Level 2.5 gm/dl (3.4-5.0); Alkaline Phosphatase 78 U/L (45-117); Aspartate Aminotransferase 37 U/L (15-37); Bilirubin Direct 0.6 mg/dl (0-0.2); Bilirubin,Total 3.4 mg/dl (0.2-1); Total Protein 5.5 gm/dl (6.4-8.2)
--- NOTE | 2021-04-03 16:19 | Hospitalist Progress Note ---
Date of Service April 03, 2021 Assessment & Plan (1) Hip fracture: Plan: Impacted and mildly displaced subcapital fracture of the left femur and secondary to GLF - s/p Left hemiarthroplasty (POD #2) - mild drop in hgb (9.8-- from 12.7). Has since been stable since procedure - EBL 175ml - PT/OT on board - Post-op pain seems to be adequately controlled - Patient comes from [facility]; however, does not want [facility] Case management on board and attempting placement to [facility] but aware that he may not be excepted in which she would be agreeable for discharge back to [facility] - Recommend DVT prophylaxis X 30 to 35 daysdrug, dose, duration are at the discretion of orthopedics (2) Acute blood loss anemia: Plan: Hemoglobin dropped from 12.7 down to 9.7 Hemodynamically stable Likely acute blood loss anemia secondary to bleeding from fracture prior to surgery, some EBL during surgery, and hemodilution from IV fluids stable FeSO4 added (x 30 days) continue to trend (3) S/P deep brain stimulator placement: Plan: Placed for his parkinsons disease -was to go next week to get settings and activated -Still has sutures in place on the top of his scalp-patient reports that he was supposed to have these removed on Wednesday 04/04-will double check with to ensure these are to be taken out and will then remove. (4) Parkinson disease: Plan: Continue carbidopa-levodopa and rivastigmine With deep brain stimulator in place but not activated yet (5) CAD (coronary artery disease): Plan: CAD with bypass surgery - Continue isosorbide - Continue atorvastatin - Continue Metoprolol ECG here without acute ischemic changes -Aspirin is not on his home medication list but is being added as above for DVT prophylaxis (6) Leukocytosis: Plan: No other infectious signs or symptoms- likely reactive Now resolved (7) Dementia: Plan: Dementia with some overlapping delirium following hospitalizations - Patient does get confused at night and is used to going up to the bathroom Doing remarkably well status post surgery (8) Communication deficit: Plan: Improves later in the day for a few hours - continue his cabidopa/levodopa and rivastigmine (9) Depression: Plan: Continue escitalopram 10mg PO daily Plan: dispo[facility] vs back to SNF Admission and Anticipated Discharge Date Admission Date: March 31, 2021 Subjective Patient seen on daily rounds today. Hospitalized 03/31 with a left femoral neck fracture. Is s/p left hemiarthroplasty Had an uneventful perioperative course. Postoperatively, noted to have some mild anemia (9.8 from 12.7) but is asymptomatic. Denies dizziness, lightheadedness, chest pain, palpitations, shortness of breath or dyspnea on exertion. [facility] but has been in the [facility] skilled component following recent insertion of a brain stimulator (that has not yet been activated). Family is requesting [employer] [facility] upon discharge Review of Systems Review of Systems: All systems reviewed and are unremarkable except as noted in HPI and below Denies fevers, chills, headache, nasal congestion, sore throat, cough, chest pain, shortness of breath, palpitations, orthopnea, PND, abdominal pain, nausea, vomiting, diarrhea, constipation, dysuria, hematuria, frequency, back pain, joint pain or swelling, easy bruising or bleeding, skin lesions or rashes. Physical Exam Physical Exam: General: Resting comfortably in his hospital bed. Very slow to wake and initially appeared to have some garbled speech but as he continued to converse, this improved. reports that this is baseline and due to his Parkinson's.. NAD. HEENT: Head is AT/NC buccal mucosa is moist and pink. No facial droop. Tongue and uvula midline Neck: No JVD. Negative hepatojugular reflex Cardiac: RRR but very distant heart sounds Lungs: CTA without W/R/R Abdomen: Normoactive X4. Soft and nontender in all quadrants. Extremities: Surgical dressing to left hip. Dry and intact. No indwelling drains. Distal pulses to the bilateral extremities are intact symmetric. Capillary fill +2. Negative Homans' sign. Neuro: A&O X4 cranial nerves II through XII are grossly intact no focal neuro deficits Skin: No obvious skin lesions or rashes Psych: Appropriate affect pleasant and cooperative Results & Data Results & Data ([facility]) Vital Signs (Past 12 Hours) Vital Signs Temp Pulse Resp BP Pulse Ox 04/03/21 14:34 36.4 C L 109 H 18 154/67 H 97 04/03/21 07:20 36.7 C 95 H 19 158/67 H 89 L Laboratory Results 04/03/21 06:03 04/03/21 06:03 PG Care Time/CCT Total # of Minutes Spent Total Time Spent with Patient: Total time spent is greater than 50% in coord ination of care (as documented) at patient's floor/unit and/or counseling patient: Coding Level of Care Code 21911 Subseq Hosp Care Lvl 2 Diagnoses Hip fracture S72.009A S/P deep brain stimulator placement Z96.89 Parkinson disease G20 CAD (coronary artery disease) I25.10 Leukocytosis D72.829 Dementia F03.90 Communication deficit F80.9 Depression F32.A Acute blood loss anemia D62
[2021-04-03] MEDS: FERROUS SULFATE 325 MG TAB PO SCH (16:44)
--- NOTE | 2021-04-03 18:07 | CT Scan Report ---
CT OF THE HEAD WITHOUT CONTRAST CLINICAL HISTORY: Speech difficulty. Evaluate for stroke. COMPARISON STUDY: Head CT March 31, 2021. CT DOSE: 1171.27 mGy.cm TECHNIQUE: Helical axial images of the head were obtained without IV contrast. Automated exposure con trol was utilized for the study. A dose lowering technique was utilized adhering to the principles o f ALARA. FINDINGS: No acute intracranial hemorrhage, midline shift or mass effect is present. Exam is compromi sed by streak artifact from bilateral stimulator leads. Hypodensity adjacent to the stimulator leads is unchanged since head CT of March 31, 2021. This is likely related to recent placement. Ventricul ar system is stable. Basal cisterns are patent. There are no extra axial collections. White matter hy podensities favor small vessel disease. There are no findings to suggest acute dural sinus thrombosis or acute territorial infarct. IMPRESSION: 1. No acute intracranial findings. 2. Exam compromised by streak artifact from bilateral stimulator leads. Hypodensity adjacent to the s timulator leads is unchanged from prior head CT and likely related to recent placement. No change in appearance of the brain. ACT 112: Negative or not required by law. Electronically signed by: Hai Li M.D. 04/03/2021 6:06 PM
[2021-04-03] MEDS: MELATONIN 3 MG TAB PO SCH (21:05)
[2021-04-03] MEDS: DOCUSATE SODIUM 100 MG CAP PO SCH (21:05)
[2021-04-03] MEDS: ATORVASTATIN 40 MG TAB PO SCH (21:05)
[2021-04-04] MEDS: METOPROLOL SUCC 25MG EXT REL TAB PO SCH (07:28)
[2021-04-04] MEDS ORDERED: SODIUM CHLORIDE 0.9% 1000ML 1,000 ML IV SCH (08:15)
[2021-04-04 09:16] LABS: Albumin Level 2.8 gm/dl (3.4-5.0); BUN Creatinine Ratio 26.6 (10-20); Calcium 8.5 mg/dl (8.5-10.1); Creatinine Clr Calc Pharmacy 91.7 ml/min; Est GFR (Non-African American) 88.9 ml/min; Potassium 3.6 mmol/L (3.5-5.1)
[2021-04-04 09:19] LABS: Albumin Globulin Ratio 0.8 (0.9-2); Bilirubin,Total 3.4 mg/dl (0.2-1); Globulin 3.3 gm/dl (2.5-4.0); Total Protein 6.1 gm/dl (6.4-8.2)
[2021-04-04] MEDS: ASPIRIN 81 MG ECTAB PO SCH ×2 (09:24→19:40)
[2021-04-04] MEDS: FERROUS SULFATE 325 MG TAB PO SCH ×2 (09:24→17:35)
[2021-04-04] MEDS: CALCIUM 600MG + VIT D 400 IU TAB PO SCH (09:25)
[2021-04-04] MEDS: ISOSORBIDE MONO EXTENDED REL 30 MG TABCR PO SCH (09:25)
[2021-04-04] MEDS: DOCUSATE SODIUM 100 MG CAP PO SCH ×2 (09:25→19:40)
[2021-04-04] MEDS: CARBIDOPA/LEVODOPA 25/100MG TAB PO SCH ×6 (09:25→21:37)
[2021-04-04] MEDS: RIVASTIGMINE TARTRATE 1.5 MG CAP PO SCH ×2 (09:26→19:41)
[2021-04-04] MEDS: ESCITALOPRAM OXALATE 10 MG TAB PO SCH (09:26)
[2021-04-04] MEDS: POLYETHYLENE (MIRALAX) 17 GM PACK PO SCH (09:26)
[2021-04-04 09:47] LABS: Hepatitis B Surf Ag Rflx Conf Neg (Neg)
[2021-04-04 10:15] LABS: Hepatitis C IgG 13Yrs+Old_Rflx Neg (Neg)
--- NOTE | 2021-04-04 12:05 | Ultrasound Report ---
ABDOMINAL ULTRASOUND, RIGHT UPPER QUADRANT HISTORY: Hyperbilirubinemia. COMPARISON: Abdomen and pelvis CT 05/15/2015. FINDINGS: Pancreas: Obscured by overlying bowel gas. Liver: Unremarkable. Gallbladder: No gallbladder wall thickening. The gallbladder is almost completely filled with sludge. Negative sonographic Dela Cruz sign. CBD: 6 mm. Right kidney: No hydronephrosis. IMPRESSION: 1. Sludge-filled gallbladder. No gallbladder wall thickening. 2. Normal caliber common bile duct. 3. The pancreas was obscured by overlying bowel gas. ACT 112: Negative or not required by law. Electronically signed by: Alex Parmar M.D. 04/04/2021 12:04 PM
[2021-04-04] MEDS ORDERED: hydrALAZINE HCL 20 MG/ML VIAL IV PRN (12:47)
--- NOTE | 2021-04-04 12:55 | Hospitalist Progress Note ---
Date of Service April 04, 2021 Assessment & Plan (1) Hyperbilirubinemia: Plan: -Patient noted to have mild scleral icterus without obvious skin jaundice for which labs were drawn showing hyperbilirubinemia at 3.4 with normal AST/ALT (total bilirubin 1.9 upon admission). -In talking with family, patient has a history of hyperbilirubinemia following antibiotics given in the past for sinus issues. It was thought that the antibiotics were what caused his hyperbilirubinemia. -In addition, with review of old records his T. Bili was 2.15 July 2020 and 2.11 September 2019 -exact etiology unclear -Patient does take chronic statin therapy. We will hold this for now. -avoid other heptotoxic meds -Was given Cleocin perioperatively for antibiotic prophylaxis (which is hepatically cleared) -Was receiving morphine for pain control. This has since been transitioned to tramadol -I have ordered further labs including an acute hepatic panel, EBV IgM/IgG, CMV IgG/IgM, copper level, alpha-1 antitrypsin level, GGT and a right upper quadrant ultrasound (which does show sludge in the gallbladder without dilated common bile ducts. Again, AST/ALT are within normal limits)--? Chronic Cholecystitis -I am wondering if patient perhaps has underlying Gilbert syndrome (and had his bilirubin was in fact elevated in the past not because of the antibiotic given but due to stress/infection). -Consult GI-- appreciate recommendations -briefly D/W GI who asked about an MRCP; however, unlikely to do as patient recently had a brain stimulator placed. Will look into. (2) Hip fracture: Plan: Impacted and mildly displaced subcapital fracture of the left femur and secondary to GLF - s/p Left hemiarthroplasty (POD #3) - mild drop in hgb (9.8-- from 12.7). Has since been stable since procedure - EBL 175ml - PT/OT on board - Post-op pain seems to be adequately controlled - Patient comes from [facility]; however, does not want him to go [facility] Case management on board and attempting placement to [facility] but aware that he may not be accepted in which she w ould be agreeable for discharge back to [facility] - Recommend DVT prophylaxis X 30 to 35 days-drug, dose, duration are at the discretion of orthopedics (3) Acute blood loss anemia: Plan: Hemoglobin dropped from 12.7 down to 9.7 Hemodynamically stable Likely acute blood loss anemia secondary to bleeding from fracture prior to surgery, some EBL during surgery, and hemodilution from IV fluids stable FeSO4 added (x 30 days) continue to trend (4) S/P deep brain stimulator placement: Plan: Placed for his parkinsons disease -was to go next week to get settings and activated -Still has sutures in place on the top of his scalp-patient reports that he was supposed to have these removed on Wednesday 04/04; however, to me they appear to be dissolvable. I have a call out to [facility] regarding this and if they are to be removed (5) Parkinson disease: Plan: Continue carbidopa-levodopa and rivastigmine With deep brain stimulator in place but not activated yet His speech pattern seems to improve during the interview-- seems more consistent with his parkinsons. (6) CAD (coronary artery disease): Plan: CAD with bypass surgery - Continue isosorbide - Continue Metoprolol ECG here without acute ischemic changes -Aspirin is not on his home medication list but is being added as above for DVT prophylaxis (7) Leukocytosis: Plan: No other infectious signs or symptoms- likely reactive Now resolved (8) Dementia: Plan: Dementia with some overlapping delirium following hospitalizations - Patient does get confused at night and is used to going up to the bathroom Doing remarkably well status post surgery (9) Communication deficit: Plan: Improves later in the day for a few hours and even throughout continued interview - continue his cabidopa/levodopa and rivastigmine (10) Depression: Plan: Continue escitalopram 10mg PO daily Plan: [facility] back to SNF family updated (both and son) plan of care D/W Dr. Griffin and briefly with GI Admission and Anticipated Discharge Date Admission Date: March 31, 2021 Subjective Patient seen on daily rounds today. When seen yesterday, I had questioned his ability to communicate. His speech was not clurred but slightly garbled. As he continued with the interview, this improved. This was documented in previous noted per other providers. I suspected that this was secondary to his Parkinson's; however, I called family to assess if this was baseline and his reported that it was; however, when she came to visit him later on in the day she reported to staff that is seemed more e xaggerated than baseline. I re-examined patient and his exam was similar to what it was earlier in the day (actually was a little better). I DID notice that his eyes looked slightly jaundiced (skin was not significantly jaundiced). Patient voices no major c/c. Denies F/C, CP, SOB, abd pain, N/V. Review of Systems Review of Systems: All systems reviewed and are unremarkable except as noted in HPI and below Denies fevers, chills, headache, nasal congestion, sore throat, cough, chest pain, shortness of breath, palpitations, orthopnea, PND, abdominal pain, nausea, vomiting, diarrhea, constipation, dysuria, hematuria, frequency, back pain, joint pain or swelling, easy bruising or bleeding, skin lesions or rashes. Physical Exam Physical Exam: General: Resting comfortably in his hospital bed. Sudeep lisa sergio is very delayed. Difficulty with articulation but improves as he speaks. NAD. HEENT: well approximated incisions on the scalp (both right and left side). Sutures in places (white-clear). No drainage. Mild scleral icterus. Buccal mucosa very dry Neck: No JVD. Negative hepatojugular reflex Cardiac: RRR but distant heart sounds Lungs: CTA without W/R/R Abdomen: Normoactive X4. Soft and nontender in all quadrants. Extremities: left hip with dry and intact dressing Neuro: A&O X4 as stated above, slow speech pattern (does improve throughout the exam). Difficultly with articulation. Otherwise, CN 2-12 are grossly intact. No focal-neuro deficits. Skin: see head. Skin is not overly jaundiced. Psych: Appropriate affect pleasant and cooperative Results & Data Results & Data ([facility]) Vital Signs (Past 12 Hours) Vital Signs Temp Pulse Resp BP Pulse Ox 04/04/21 07:12 36.6 C 81 20 185/79 H 92 Laboratory Results 04/03/21 06:03 04/04/21 08:27 T.Bili: 3.4 AST: 37 ALT: 6 Ammonia: [address] of the head: IMPRESSION: 1. No acute intracranial findings. 2. Exam compromised by streak artifact from bilateral stimulator leads. Hypodensity adjacent to the stimulator leads is unchanged from prior head CT and likely related to recent placement. No change in appearance of the brain. RUQ U/S: IMPRESSION: 1. Sludge-filled gallbladder. No gallbladder wall thickening. 2. Normal caliber common bile duct. 3. The pancreas was obscured by overlying bowel gas. PG Care Time/CCT Total # of Minutes Spent Total Time Spent with Patient: Total time spent is greater than 50% in coordination of care (as documented) at patient's floor/unit and/or counseling patient: Coding Level of Care Code 47555 Subseq Hosp Care Lvl 3 Diagnoses Hip fracture S72.009A Acute blood loss anemia D62 S/P deep brain stimulator placement Z96.89 Parkinson disease G20 CAD (coronary artery disease) I25.10 Leukocytosis D72.829 Dementia F03.90 Communication deficit F80.9 Depression F32.A Hyperbilirubinemia E80.6
[2021-04-04 14:49] LABS: Alanine Aminotransferase < 6 U/L (12-78); Albumin Level 2.3 gm/dl (3.4-5.0); Alkaline Phosphatase 78 U/L (45-117); Aspartate Aminotransferase 38 U/L (15-37); Bilirubin Direct 0.5 mg/dl (0-0.2); Bilirubin,Total 2.6 mg/dl (0.2-1); Total Protein 5.4 gm/dl (6.4-8.2)
--- NOTE | 2021-04-04 15:10 | Orthopedic Progress Note ---
Date of Service April 04, 2021 Assessment & Plan (1) Hip fracture: Plan: POD #3 s/p left hip hemiarthroplasty, doing as well as expected. Resume diet. WBAT with walker and assistance. OOB to chair. Continue pain control. Acute anemia blood loss, Hgb stable DVT prophylaxis: TEDs 3 weeks, SCDs while in hospital. ASA 81mg BID for 6 weeks. PT/OT. Total hip precautions D/C planning. Silverlon dressing in place. Ok to discharge from ortho stand point, follow up in Dr. Zamora's office in 2 weeks for ZipLine removal. Continue care per primary service. Call [phone] with any questions. Will discuss findings with Dr. Zamora today. All questions answered. Admission and Anticipated Discharge Date Admission Date: March 31, 2021 Subjective Patient sitting up in bed, present at bedside. No pain in left hip at rest. Mild pain with movement in left thigh. Physical Exam Musculoskeletal: Exam of left hip: Silverlon in place, no drainage present. Tolerates log rolling of left hip, with mild pain. No effusion left knee. Left knee nontender. Ecchymosis anterior aspect of right knee. No calf tenderness, calf supple. Nontender left foot, distal pulses 1+, distal sensation normal. Results & Data ([facility]) Vital Signs (Past 12 Hours) Vital Signs Temp Pulse Resp BP Pulse Ox 04/04/21 07:12 36.6 C 81 20 185/79 H 92 Laboratory Results 04/04/21 04/04/21 04/04/21 Range/Units 14:04 08:27 08:27 Sodium (136-145) mmol/L Potassium (3.5-5.1) mmol/L Chloride (98-107) mmol/L Carbon Dioxide (21-32) mmol/L Anion Gap (3-11) BUN (7-18) mg/dl Creatinine (0.6-1.4) mg/dl Est Cr Clr Drug Dosing ml/min Est GFR ( Amer) ml/min Est GFR (Non-Af Amer) ml/min BUN/Creatinine Ratio (10-20) Glucose (70-99) mg/dl Calcium (8.5-10.1) mg/dl Total Bilirubin 2.6 H (0.2-1) mg/dl Direct Bilirubin 0.5 H (0-0.2) mg/dl GGT Pending AST 38 H (15-37) U/L ALT < 6 L (12-78) U/L Alkaline Phosphatase 78 (45-117) U/L Total Protein 5.4 L (6.4-8.2) gm/dl Albumin 2.3 L (3.4-5.0) gm/dl Globulin (2.5-4.0) gm/dl Albumin/Globulin Ratio (0.9-2) Alpha-1-AT Phenotype Pending Serum Copper Pending CMV IgM Ab Pending CMV IgG Ab/TORCH Pending EBV Capsid Ag IgG Ab Pending EBV Capsid Ag IgM Ab Pending EBV EA Restrict+Diffuse Pending EBV Nuclear Antigen Ab Pending EBV Antibody Interp Pending Hepatitis A IgM Ab Pending Hep Bs Antigen (Neg) Hep B Core IgM Ab Pending Hepatitis C Antibody (Neg) 04/04/21 04/04/21 Range/Units 08:27 08:27 Sodium 137 (136-145) mmol/L Potassium 3.6 (3.5-5.1) mmol/L Chloride 102 (98-107) mmol/L Carbon Dioxide 29 (21-32) mmol/L Anion Gap 6.0 (3-11) BUN 18 (7-18) mg/dl Creatinine 0.67 (0.6-1.4) mg/dl Est Cr Clr Drug Dosing 91.7 ml/min Est GFR ( Amer) 103.0 ml/min Est GFR (Non-Af Amer) 88.9 ml/min BUN/Creatinine Ratio 26.6 H (10-20) Glucose 97 (70-99) mg/dl Calcium 8.5 (8.5-10.1) mg/dl Total Bilirubin 3.4 H (0.2-1) mg/dl Direct Bilirubin (0-0.2) mg/dl GGT AST 46 H (15-37) U/L ALT 30 (12-78) U/L Alkaline Phosphatase 95 (45-117) U/L Total Protein 6.1 L (6.4-8.2) gm/dl Albumin 2.8 L (3.4-5.0) gm/dl Globulin 3.3 (2.5-4.0) gm/dl Albumin/Globulin Ratio 0.8 L (0.9-2) Alpha-1-AT Phenotype Serum Copper CMV IgM Ab CMV IgG Ab/TORCH EBV Capsid Ag IgG Ab EBV Capsid Ag IgM Ab EBV EA Restrict+Diffuse EBV Nuclear Antigen Ab EBV Antibody Interp Hepatitis A IgM Ab Hep Bs Antigen Neg (Neg) Hep B Core IgM Ab Hepatitis C Antibody Neg (Neg)
[2021-04-04] MEDS: MELATONIN 3 MG TAB PO SCH (19:41)
[2021-04-05 07:35] LABS: Basophils # (auto) 0.01 K/uL (0-0.2); Basophils % (auto) 0.2 %; Eosinophils # (auto) 0.18 K/uL (0-0.5); Hematocrit (blood only) 30.9 % (42-52); Hemoglobin 10.4 g/dL (14.0-18.0); Immature Granulocytes # (auto) 0.03 K/uL (0.00-0.02); Immature Granulocytes % (auto) 0.5 %; Lymphocytes # (auto) 1.12 K/uL (1.2-3.4); Lymphocytes % (auto) 18.7 %; Mean Corpuscular Hemoglobin 31.1 pg (25-34); Mean Corpuscular Hgb Conc 33.7 g/dL (32-36); Mean Corpuscular Volume 92.5 fL (80-100); Mean Platelet Volume 8.8 fL (7.4-10.4); Monocytes # (auto) 0.79 K/uL (0.11-0.59); Monocytes % (auto) 13.2 %; Neutrophils # (auto) 3.86 K/uL (1.4-6.5); Neutrophils % (auto) 64.4 %; Platelet Count 242 K/uL (130-400); RDW Coefficient of Variation 14.1 % (11.5-14.5); RDW Standard Deviation 47.9 fL (36.4-46.3); Red Blood Count 3.34 M/uL (4.7-6.1); White Blood Count 5.99 K/uL (4.8-10.8)
[2021-04-05 08:09] LABS: Albumin Level 2.6 gm/dl (3.4-5.0); BUN Creatinine Ratio 25.6 (10-20); Calcium 8.4 mg/dl (8.5-10.1); Creatinine Clr Calc Pharmacy 99.1 ml/min; Est GFR (African American) 106.3 ml/min; Est GFR (Non-African American) 91.7 ml/min; Magnesium 2.2 mg/dl (1.8-2.4); Potassium 3.2 mmol/L (3.5-5.1)
[2021-04-05 08:11] LABS: Albumin Globulin Ratio 0.8 (0.9-2); Bilirubin,Total 2.9 mg/dl (0.2-1); Globulin 3.4 gm/dl (2.5-4.0)
--- NOTE | 2021-04-05 09:12 | Gastrointestinal Consultation ---
Date of Consultation April 05, 2021 Assessment & Plan (1) Hyperbilirubinemia: Pattern consistent with Gilbert's. TB typically elevated during time of physical stress and is likely the consequence of recent fracture/pain with subsequent need for surgery. There is no biliary ductal dilation on ultrasound or DB/ALP elevation to suggest choledocholithiasis and patient denies any obstructive symptoms such as RUQ pain/tenderness, n/v. No leukocytosis or fever. * No further GI work up is indicated at this time. * Continue supportive care per primary team/ortho. Thank you for allowing us to participate in the care of this pleasant patient. If you have any questions or concerns, please do not hesitate to contact us. Supervising Physician Co-Signing Physician Notes I personally evaluated the patient and agree with the findings as documented by THELMA Montoya Exam: abd: soft, nt, nd History of Present Illness Reason for Consultation: Hyperbilirubinemia Requesting Physician: Georgina Salazar PA-C Attending Physician: Perry Griffin MD History of Present Illness Patient is a 81 y.o. CM with a history of CAD, Parkinson's dementia, and depression admitted after sustaining at fall. He was found to have a left hip fracture and is currently POD #3. GI has been consulted due to incidental finding of hyperbilirubinemia and jaundice. The patient denies any abdominal pain, nausea or vomiting, black/bloody stools, or other GI complaints. No family history of chronic liver disease. Biliary ultrasound demonstrated a 6 mm CBD and gallbladder with sludge but evidence of acute or chronic cholecystitis. TB yesterday was noted to be 3.4 but is down to 2.9 today. DB 0.5. ALT and ALP are normal. AST with mild elevation of 38. Allergies Allergy/AdvReac Type Severity Reaction Status Date / Time amoxicillin Allergy Severe LIVER Verified 03/31/21 12:45 REACTION, BECAME JAUNDICE clavulanic acid Allergy Severe LIVER Verified 03/31/21 12:45 REACTION, JAUNDICE Quinolones Allergy Mild LIVER, Verified 03/31/21 12:45 JAUNDICE; ALLERGY TO CIPRO, LEVAQUIN, & MOXIFLOXACIN Home Medications Medication Instructions Recorded Confirmed Type atorvastatin 40 mg tablet (Lipitor) 40 mg PO HS 09/01/18 03/31/21 History calcium carb,cit ER 600 mg-vit D3 1 tab PO DAILY 09/01/18 03/31/21 History 12.5 mcg (500 unit) tablet,ext.rel carbidopa 25 mg-levodopa 100 mg 2 tab PO 6XD 09/01/18 03/31/21 History tablet isosorbide mononitrate 30 mg 30 mg PO DAILY 09/01/18 03/31/21 History tablet,extended release 24 hr lactobacillus combination no.4 3 3 mmu cells PO BID 09/01/18 03/31/21 History billion cell capsule (Probiotic) melatonin 5 mg tablet 10 mg PO HS 09/01/18 03/31/21 History metoprolol succinate 50 mg capsule 75 mg PO DAILY 09/01/18 03/31/21 History sprinkle, ext. release 24 hr multivitamin 1 tab PO DAILY 09/01/18 03/31/21 History nitroglycerin 0.4 mg sublingual 0.4 mg SUBLINGUAL UD PRN 09/01/18 03/31/21 History tablet (Nitrostat) polyethylene glycol 3350 17 gram 8.5 g PO DAILY 09/01/18 03/31/21 History oral powder packet (Miralax) psyllium husk 3.4 gram/5.4 gram 1 dose PO DAILY 09/01/18 03/31/21 History oral powder (Metamucil) escitalopram oxalate 10 mg tablet 10 mg PO DAILY 03/31/21 03/31/21 History rivastigmine tartrate 6 mg capsule 6 mg PO BID 03/31/21 03/31/21 History Patient History Medical History Anemia CAD (coronary artery disease) Communication deficit Dementia Depression Diverticulitis Pacemaker Parkinson disease Surgical History Hx of CABG Status post deep brain stimulator placement Social History Smoking Status: Unknown if ever smoked Preferred Language: Bolivian Communication Ability: Impaired Career Development 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 Review of Systems Constitutional: + weakness Gastrointestinal: as per Subjective / HPI Musculoskeletal: as per Subjective / HPI and + joint pain Physical Exam Constitutional: + thin and + frail appearing Eyes: EOM intact bilaterally (bilateral sclera icterus) Respiratory: normal respiratory effort Auscultation: lungs clear to auscultation bilaterally Cardiovascular: Rate/Rhythm: regular rate and regular rhythm Gastrointestinal (Abdomen): Inspection/Auscultation: normal bowel sounds Percussion/Palpation: abdomen soft; abdomen nontender Psychiatric: Orientation: alert and oriented x 3 Results & Data ([facility]) Vital Signs (Past 12 Hours) Vital Signs Temp Pulse Resp BP Pulse Ox 04/05/21 07:22 36.8 C 72 18 177/81 H 98 04/04/21 22:53 36.8 C 72 20 161/73 H Laboratory Results Abnormal lab results 04/04/21 04/05/21 04/05/21 Range/Units 14:04 06:30 06:30 RBC 3.34 L (4.7-6.1) M/uL Hgb 10.4 L (14.0-18.0) g/dL Hct 30.9 L (42-52) % RDW Std Deviation 47.9 H (36.4-46.3) fL Lymph # (Auto) 1.12 L (1.2-3.4) K/uL Talbot # (Auto) 0.79 H (0.11-0.59) K/uL Immature Gran # (Auto) 0.03 H (0.00-0.02) K/uL Potassium 3.2 L (3.5-5.1) mmol/L BUN/Creatinine Ratio 25.6 H (10-20) Calcium 8.4 L (8.5-10.1) mg/dl Total Bilirubin 2.6 H 2.9 H (0.2-1) mg/dl Direct Bilirubin 0.5 H (0-0.2) mg/dl AST 38 H 38 H (15-37) U/L ALT < 6 L (12-78) U/L Total Protein 5.4 L 6.0 L (6.4-8.2) gm/dl Albumin 2.3 L 2.6 L (3.4-5.0) gm/dl Albumin/Globulin Ratio 0.8 L (0.9-2) PG Care Time/CCT Total # of Minutes Spent Total Time Spent with Patient: Total time spent is greater than 50% in coordination of care (as documented) at patient's floor/unit and/or counseling patient: Coding Level of Care Code 72589 Initial Inpt Care Lvl 3 Diagnoses Hyperbilirubinemia E80.6
[2021-04-05] MEDS: METOPROLOL SUCC 25MG EXT REL TAB PO SCH (09:31)
[2021-04-05] MEDS: ISOSORBIDE MONO EXTENDED REL 30 MG TABCR PO SCH (09:32)
[2021-04-05] MEDS: POLYETHYLENE (MIRALAX) 17 GM PACK PO SCH (09:32)
[2021-04-05] MEDS: RIVASTIGMINE TARTRATE 1.5 MG CAP PO SCH ×2 (09:32→20:09)
[2021-04-05] MEDS: ASPIRIN 81 MG ECTAB PO SCH ×2 (09:32→20:08)
[2021-04-05] MEDS: CALCIUM 600MG + VIT D 400 IU TAB PO SCH (09:32)
[2021-04-05] MEDS: CARBIDOPA/LEVODOPA 25/100MG TAB PO SCH ×6 (09:33→22:08)
[2021-04-05] MEDS: FERROUS SULFATE 325 MG TAB PO SCH ×2 (09:33→17:31)
[2021-04-05] MEDS: DOCUSATE SODIUM 100 MG CAP PO SCH ×2 (09:33→20:08)
[2021-04-05] MEDS: ESCITALOPRAM OXALATE 10 MG TAB PO SCH (09:33)
[2021-04-05] MEDS ORDERED: POTASSIUM CHLORIDE CRTAB 20 MEQ TABCR PO STA (10:21)
--- NOTE | 2021-04-05 15:57 | Hospitalist Progress Note ---
Date of Service April 05, 2021 Assessment & Plan (1) Hyperbilirubinemia: Plan: -on 04/03-Patient noted to have mild scleral icterus without obvious skin jaundice for which labs were drawn showing hyperbilirubinemia at 3.4 with normal AST/ALT (total bilirubin 1.9 upon admission). -In talking with family, patient has a history of hyperbilirubinemia following antibiotics given in the past for sinus issues. It was thought that the antibiotics were what caused his hyperbilirubinemia. -In addition, with review of old records his T. Bili was 2.15 July 2020 and 2.11 September 2019 -Given history, strongly suspect Gilbert's syndrome; however, this is a diagnosis of exclusion. Work-up initiated but results pending. -AST/ALT within normal limits -Copper level pending -Acute hepatitis panel pending -CMV IgM/IgG pending -EBV panel pending -Alpha-1 antitrypsin level pending -RUQ ultrasound showing sludge in the gallbladder without ductal dilatation or evidence of acute cholecystitis -Seen by GI who also suspects Gilbert's syndrome. Appreciate recommendations. -Morphine has since been stopped and avoiding other hepatically cleared meds. Mentation overall improved. (2) Hip fracture: Plan: Impacted and mildly displaced subcapital fracture of the left femur and seco ndary to GLF - s/p Left hemiarthroplasty (POD #4) - mild drop in hgb (9.8-- from 12.7). Has since been stable since procedure - EBL 175ml - PT/OT on board - Post-op pain seems to be adequately controlled - Patient typically resides in independent living but recently moved to [facility] (after insertion of brain stimulator for parkinson's last week-- which is to be turned on this Saturday- rep will come here) - does not want him to [facility]. Case management on board and attempting placement to [facility] but aware that he may not be accepted in which she would be agreeable for discharge back to [facility] - Recommend DVT prophylaxis X 30 to 35 days-drug, dose, duration are at the discretion of orthopedics (3) Acute blood loss anemia: Plan: Hemoglobin dropped from 12.7 down to 9.7 Hemodynamically stable Likely acute blood loss anemia secondary to bleeding from fracture prior to surgery, some EBL during surgery, and hemodilution from IV fluids stable FeSO4 added (x 30 days) continue to trend (4) S/P deep brain stimulator placement: Plan: Placed for his parkinsons disease -was to go next week to get settings and activated. Per , Rep coming to [place] (to wherever patient is-- [facility]here/[facility]) to turn this on -Still has sutures in place on the top of his scalp-patient reports that he was supposed to have these removed on Wednesday 04/04; however, to me they appear to be dissolvable. I have a call out to [facility] regarding this and if they are to be removed-- awaiting response. now believes these are dissolvable (5) Parkinson disease: Plan: Continue carbidopa-levodopa and rivastigmine With deep brain stimulator in place but not activated yet (see above) His speech pattern seems to improve during the interview-- seems more consistent with his parkinsons. (6) CAD (coronary artery disease): Plan: CAD with bypass surgery - Continue isosorbide - Continue Metoprolol ECG here without acute ischemic changes -Aspirin is not on his home medication list but is being added as above for DVT prophylaxis (7) Leukocytosis: Plan: 12.54 upon presentation- likely reactive from hip fx since resolved with no infectious signs or symptoms (8) Dementia: Plan: Dementia with some overlapping delirium following hospitalizations - Patient does get confused at night Doing remarkably well status post surgery (9) Communication deficit: Plan: Improves later in the day for a few hours and even throughout continued interview - continue his cabidopa/levodopa and rivastigmine (10) Depression: Plan: Continue escitalopram 10mg PO daily Plan: [facility]po[facility] back to SNF family updated plan of care D/W Dr. Griffin Admission and Anticipated Discharge Date Admission Date: March 31, 2021 Subjective Patient seen on daily rounds today. Much brighter than he has been over the past 48 hours (since I took over care on Saturday). Vocalizes no significant complaints or concerns. Denies fevers, chills, chest pain, shortness of breath, abdominal pain, nausea or vomiting. His total bilirubin is downtrending. Seen by GI who also suspects Gilbert's syndrome. Still awaiting return phone call from [facility] regarding sutures on the top of the head and if these are dissolvable as they appear reports that [employer] rep is coming [place] [facility] on Saturday (will see patient while in hospital if still here) to turn on the brain stimulator Review of Systems Review of Systems: All systems reviewed and are unremarkable except as noted in HPI and below Denies fevers, chills, headache, nasal congestion, sore throat, cough, chest p ain, shortness of breath, palpitations, orthopnea, PND, abdominal pain, nausea, vomiting, diarrhea, constipation, dysuria, hematuria, frequency, back pain, joint pain or swelling, easy bruising or bleeding, skin lesions or rashes. Physical Exam Physical Exam: General: Resting comfortably in his bedside commode. Much brighter affect today. Still with delayed response but articulation improved. NAD. HEENT: Sutures intact to scalp. Dry. Well approximated. Buccal mucosa is moist and pink Neck: No JVD. Negative hepatojugular reflex Cardiac: RRR without M/G/R Lungs: CTA without W/R/R Abdomen: Normoactive X4. Soft and nontender in all quadrants. Extremities: No peripheral clubbing cyanosis or edema Neuro: A&O X4 cranial nerves II through XII are grossly intact no focal neuro deficits Skin: See HEENT Psych: Appropriate affect pleasant and cooperative Results & Data Results & Data ([facility]) Vital Signs (Past 12 Hours) Vital Signs Temp Pulse Resp BP Pulse Ox 04/05/21 07:22 36.8 C 72 18 177/81 H 98 Laboratory Results 04/05/21 06:30 04/05/21 06:30 Total bilirubin: 2.9 AST: 38 ALT: 18 PG Care Time/CCT Total # of Minutes Spent Total Time Spent with Patient: Total time spent is greater than 50% in coordination of care (as documented) at patient's floor/unit and/or counseling patient: Coding Level of Care Code 64726 Subseq Hosp Care Lvl 2 Diagnoses Hyperbilirubinemia E80.6 Hip fracture S72.009A Acute blood loss anemia D62 S/P deep brain stimulator placement Z96.89 Parkinson disease G20 CAD (coronary artery disease) I25.10 Leukocytosis D72.829 Dementia F03.90 Communication deficit F80.9 Depression F32.A
[2021-04-05] MEDS: MELATONIN 3 MG TAB PO SCH (20:09)
[2021-04-06 07:29] LABS: Hematocrit (blood only) 29.6 % (42-52); Hemoglobin 9.9 g/dL (14.0-18.0); Mean Corpuscular Hemoglobin 30.9 pg (25-34); Mean Corpuscular Hgb Conc 33.4 g/dL (32-36); Mean Corpuscular Volume 92.5 fL (80-100); Mean Platelet Volume 8.3 fL (7.4-10.4); Platelet Count 246 K/uL (130-400); RDW Coefficient of Variation 14.1 % (11.5-14.5); RDW Standard Deviation 47.7 fL (36.4-46.3); White Blood Count 5.13 K/uL (4.8-10.8)
[2021-04-06 08:03] LABS: Albumin Level 2.3 gm/dl (3.4-5.0); Calcium 8.3 mg/dl (8.5-10.1); Creatinine Clr Calc Pharmacy 107.8 ml/min; Est GFR (African American) 110.1 ml/min; Magnesium 2.2 mg/dl (1.8-2.4); Potassium 3.6 mmol/L (3.5-5.1)
[2021-04-06 08:13] LABS: Albumin Globulin Ratio 0.7 (0.9-2); Globulin 3.2 gm/dl (2.5-4.0); Total Protein 5.5 gm/dl (6.4-8.2)
[2021-04-06] MEDS: POLYETHYLENE (MIRALAX) 17 GM PACK PO SCH (09:30)
[2021-04-06] MEDS: ASPIRIN 81 MG ECTAB PO SCH ×2 (09:30→20:19)
[2021-04-06] MEDS: RIVASTIGMINE TARTRATE 1.5 MG CAP PO SCH ×2 (09:30→20:19)
[2021-04-06] MEDS: CARBIDOPA/LEVODOPA 25/100MG TAB PO SCH ×6 (09:30→22:12)
[2021-04-06] MEDS: ESCITALOPRAM OXALATE 10 MG TAB PO SCH (09:30)
[2021-04-06] MEDS: CALCIUM 600MG + VIT D 400 IU TAB PO SCH (09:30)
[2021-04-06] MEDS: ISOSORBIDE MONO EXTENDED REL 30 MG TABCR PO SCH (09:31)
[2021-04-06] MEDS: DOCUSATE SODIUM 100 MG CAP PO SCH ×2 (09:31→20:19)
[2021-04-06] MEDS: METOPROLOL SUCC 25MG EXT REL TAB PO SCH (09:31)
[2021-04-06] MEDS: FERROUS SULFATE 325 MG TAB PO SCH ×2 (09:31→17:10)
[2021-04-06] MEDS: MELATONIN 3 MG TAB PO SCH (20:20)
[2021-04-07 07:49] LABS: Hematocrit (blood only) 29.7 % (42-52); Hemoglobin 9.9 g/dL (14.0-18.0); Mean Corpuscular Hemoglobin 29.9 pg (25-34); Mean Corpuscular Hgb Conc 33.3 g/dL (32-36); Mean Corpuscular Volume 89.7 fL (80-100); Mean Platelet Volume 7.9 fL (7.4-10.4); Platelet Count 291 K/uL (130-400); RDW Coefficient of Variation 13.9 % (11.5-14.5); Red Blood Count 3.31 M/uL (4.7-6.1); White Blood Count 5.35 K/uL (4.8-10.8)
[2021-04-07 08:22] LABS: Albumin Level 2.4 gm/dl (3.4-5.0); BUN Creatinine Ratio 32.6 (10-20); Calcium 7.8 mg/dl (8.5-10.1); Creatinine Clr Calc Pharmacy 100.7 ml/min; Est GFR (Non-African American) 92.4 ml/min; Potassium 3.5 mmol/L (3.5-5.1)
[2021-04-07 08:25] LABS: Albumin Globulin Ratio 0.8 (0.9-2); Bilirubin,Total 1.8 mg/dl (0.2-1); Globulin 3.2 gm/dl (2.5-4.0); Total Protein 5.6 gm/dl (6.4-8.2)
[2021-04-07] MEDS: CARBIDOPA/LEVODOPA 25/100MG TAB PO SCH ×3 (08:49→14:15)
[2021-04-07] MEDS: DOCUSATE SODIUM 100 MG CAP PO SCH (08:50)
[2021-04-07] MEDS: ESCITALOPRAM OXALATE 10 MG TAB PO SCH (08:50)
[2021-04-07] MEDS: ASPIRIN 81 MG ECTAB PO SCH (08:50)
[2021-04-07] MEDS: FERROUS SULFATE 325 MG TAB PO SCH (08:50)
[2021-04-07] MEDS: METOPROLOL SUCC 25MG EXT REL TAB PO SCH (08:50)
[2021-04-07] MEDS: RIVASTIGMINE TARTRATE 1.5 MG CAP PO SCH (08:50)
[2021-04-07] MEDS: CALCIUM 600MG + VIT D 400 IU TAB PO SCH (08:51)
[2021-04-07] MEDS: ISOSORBIDE MONO EXTENDED REL 30 MG TABCR PO SCH (08:51)
[2021-04-07] MEDS: POLYETHYLENE (MIRALAX) 17 GM PACK PO SCH (08:51)
--- NOTE | 2021-04-07 13:42 | Hospitalist Progress Note ---
Date of Service April 06, 2021 Assessment & Plan (1) Hyperbilirubinemia: Plan: -on 04/03-Patient noted to have mild scleral icterus without obvious skin jaundice for which labs were drawn showing hyperbilirubinemia at 3.4 with normal AST/ALT (total bilirubin 1.9 upon admission). -In talking with family, patient has a history of hyperbilirubinemia following antibiotics given in the past for sinus issues. It was thought that the antibiotics were what caused his hyperbilirubinemia. -In addition, with review of old records his T. Bili was 2.15 July 2020 and 2.11 September 2019 -Given history, strongly suspect Gilbert's syndrome; however, this is a diagnosis of exclusion. Work-up initiated but results pending. -AST/ALT within normal limits -Copper level pending -Acute hepatitis panel pending -CMV IgM/IgG pending -EBV panel pending -Alpha-1 antitrypsin level pending -RUQ ultrasound showing sludge in the gallbladder without ductal dilatation or evidence of acute cholecystitis -Seen by GI who also suspects Gilbert's syndrome. Appreciate recommendations. -Morphine has since been stopped and avoiding other hepatically cleared meds. Mentation overall improved -04/07: T.Bili down to 1.9 (2) Hip fracture: Plan: Impacted and mildly displaced subcapital fracture of the left femur and secondary to GLF - s/p Left hemiarthroplasty (POD #5) - mild drop in hgb (9.8-- from 12.7). Has since been stable since procedure (9.9 today) - EBL 175ml - PT/OT on board--> recommending inpatient rehab - Post-op pain seems to be adequately controlled - Patient typically resides in independent living but recently moved to SNF (after insertion of brain stimulator for parkinson's the week [employer] where - does not want him to go [facility] Case management on board and attempting placement to [facility] but aware that he may not be accepted in which she would be agreeable for discharge back to [facility] - Recommend DVT prophylaxis X 30 to 35 days-drug, dose, duration are at the discretion of orthopedics (3) Acute blood loss anemia: Plan: Hemoglobin dropped from 12.7 down to 9.7 Hemodynamically stable Likely acute blood loss anemia secondary to bleeding from fracture prior to surgery, some EBL during surgery, and hemodilution from IV fluids stable FeSO4 added (x 30 days) continue to trend (4) S/P deep brain stimulator placement: Plan: Placed for his parkinsons disease -was to go next week to get settings and activated. Per , Rep coming to [place] [facility] to turn this on -Still has sutures in place on the top of his scalp-patient reports that he was supposed to have these removed on Wednesday 04/04; however, to me they appear to be dissolvable. I have a call out to [facility] regarding this and if they are to be removed-- awaiting response. now believes these are dissolvable (5) Parkinson disease: Plan: Continue carbidopa-levodopa and rivastigmine With deep brain stimulator in place but not activated yet (see above) His speech pattern seems to improve during the interview-- seems more consistent with his parkinsons. (6) CAD (coronary artery disease): Plan: CAD with bypass surgery - Continue isosorbide - Continue Metoprolol ECG here without acute ischemic changes -Aspirin is not on his home medication list but is being added as above for DVT prophylaxis (7) Leukocytosis: Plan: 12.54 upon presentation- likely reactive from hip fx since resolved with no infectious signs or symptoms (8) Dementia: Plan: Dementia with some overlapping delirium following hospitalizations - Patient does get confused at night Doing remarkably well status post surgery (9) Communication deficit: Plan: Improves later in the day for a few hours and even throughout continued interview - continue his cabidopa/levodopa and rivastigmine (10) Depression: Plan: Continue escitalopram 10mg PO daily Plan: [facility]po[facility] family updated plan of care D/W Dr. Griffin Admission and Anticipated Discharge Date Admission Date: March 31, 2021 Subjective Patient seen on daily rounds today. Actually rounded on while the [employer] rep was then turning on his brain stimulator. Patient was having remarkable response and that his tremors had nearly abated. Had some temporary paresthesias of his left hand that lasted only seconds but otherwise no ill ef fects. Spoke with Aisha and Dr. Hitchcock from [facility] to update them that the brain stimulator has since been turned on, his tremors have nearly abated and his rehab potential is much improved. They agree that he is a good candidate for [facility]. They have submitted for an authorization which is pending; however, will not have a bed available for him until next week. Review of Systems Review of Systems: All systems reviewed and are unremarkable except as noted in HPI and below Denies fevers, chills, headache, nasal congestion, sore throat, cough, chest pain, shortness of breath, palpitations, orthopnea, PND, abdominal pain, nausea, vomiting, diarrhea, constipation, dysuria, hematuria, frequency, back pain, joint pain or swelling, easy bruising or bleeding, skin lesions or rashes. Physical Exam Physical Exam: General: Resting comfortably in his bedside chair. Noted improvement with turning on the brain stimulator and that his tremors have nearly abated. In addition, significant improvement in cogwheeling/rigidity. NAD. HEENT: Well healing incisional scars to the scalp bilaterally. Neck: No JVD. Negative hepatojugular reflex Cardiac: RRR without M/G/R Lungs: CTA without W/R/R Abdomen: Normoactive X4. Soft and nontender in all quadrants. Extremities: No peripheral clubbing cyanosis or edema Neuro: A&O X4 cranial nerves II through XII are grossly intact no focal neuro deficits Skin: No obvious skin lesions or rashes Psych: Appropriate affect pleasant and cooperative Results & Data Results & Data ([facility]) Vital Signs (Past 12 Hours) Vital Signs Temp Pulse Resp BP Pulse Ox 04/06/21 07:35 36.9 C 61 20 161/66 H 97 PG Care Time/CCT Total # of Minutes Spent Total Time Spent with Patient: Total time spent is greater than 50% in coordination of care (as documented) at patient's floor/unit and/or counseling patient: Coding Diagnoses Hyperbilirubinemia E80.6 Hip fracture S72.009A Acute blood loss anemia D62 S/P deep brain stimulator placement Z96.89 Parkinson disease G20 CAD (coronary artery disease) I25.10 Leukocytosis D72.829 Dementia F03.90 Communication deficit F80.9 Depression F32.A
--- NOTE | 2021-04-07 14:30 | Discharge Summary ---
Date of Service April 07, 2021 Admission HPI Per Admitting Provider We have no records available on this patient. Information for this H&P was obtained by the family at bedside and correction cover sheet. 81 YOM with past medical history of: CABG x4, HLD, HTN, parkinsonian dementia, s/p brain stimulator placement and pacemaker placement at [facility]. Patient is a resident at [facility] where he suffered a fall today landing on his left hip. The patient is not very vocal or aware of his surroundings at baseline, but per family he improves in the evening and have some conversation with him. He walks with a rolling walker and one person assist with gait belt per interview with tracey kapadia. The patient did suffer a Impacted and mildly displaced subcapital fracture of the left femur. Initial discussion with the son on the phone and [id number] at the bedside, the would not want surgery correction if this was able to heal with conservative management. I have discussed the case with Dr. Zamora. The patient will be admitted for pain control, PT/OT, and set-up for rehab or return to [facility]. The patient COVID test on admission is: NEGATIVE Principal Diagnosis 1. Left hip fracture s/p left hemiarthroplasty (04/01) 2. Hyperbilirubinemiawork-up pending but suspect Gilbert's syndrome 3. Parkinson's with recent placement of brain stimulator. Activated 04/07 by [employer] rep 4. Postoperative anemiastable. Likely multifactorial (blood loss and dilutional)started on iron X 30 days 5. Leukocytosislikely reactive from fracture Discharge Exam General: Resting comfortably in his bedside commode. Much brighter affect today. Still with delayed response but articulation improved. NAD.Seen while rep activating brain stimulator-- tremors nearly resolved HEENT: Sutures intact to scalp. Dry. Well approximated. Buccal mucosa is moist and pink Neck: No JVD. Negative hepatojugular reflex Cardiac: RRR without M/G/R Lungs: CTA without W/R/R Abdomen: Normoactive X4. Soft and nontender in all quadrants. Extremities: No peripheral clubbing cyanosis or edema Neuro: A&O X4 cranial nerves II through XII are grossly intact no focal neuro deficits Skin: See HEENT Psych: Appropriate affect pleasant and cooperative Discharge Data Allergies Allergy/AdvReac Type Severity Reaction Status Date / Time amoxicillin Allergy Severe LIVER Verified 03/31/21 12:45 REACTION, BECAME JAUNDICE clavulanic acid Allergy Severe LIVER Verified 03/31/21 12:45 REACTION, JAUNDICE Quinolones Allergy Mild LIVER, Verified 03/31/21 12:45 JAUNDICE; ALLERGY TO CIPRO, LEVAQUIN, & MOXIFLOXACIN Consultations 03/31/21 14:23 ED Decision to Admit Stat 03/31/21 20:41 Consult Orthopedic Surgery Routine S/P Left hemiarthroplasty Resume diet. WBAT with walker and assistance. OOB to chair. Continue pain control. Acute anemia blood loss, Hgb stable DVT prophylaxis: TEDs 3 weeks, SCDs while in hospital. ASA 81mg BID for 6 weeks. PT/OT. Total hip precautions D/C planning. Silverlon dressing in place. Ok to discharge from ortho stand point, follow up in Dr. Zamora's office in 2 weeks for ZipLine removal. Continue care per primary service. Call [phone] with any questions. Will discuss findings with Dr. Zamora today. All questions answered. 04/04/21 12:41 Consult Gastroenterology Routine (1) Hyperbilirubinemia: Pattern consistent with Gilbert's. TB typically elevated during time of physical stress and is likely the consequence of recent fracture/pain with subsequent need for surgery. There is no biliary ductal dilation on ultrasound or DB/ALP elevation to suggest choledocholithiasis and patient denies any obstructive symptoms such as RUQ pain/tenderness, n/v. No leukocytosis or fever. * No further GI work up is indicated at this time. * Continue supportive care per primary team/ortho. 04/05/21 12:04 Consult Health Information Management Routine Procedures Performed Operation Date: 04/01/21 12:00 Actual Procedures p Left Hip Jordon-Arthroplasty(Left) - Jose Antonio Zamora MD Ordered Studies 03/31/21 11:03 CT head/brain wo con Stat IMPRESSION: 1. No acute intracranial findings. 2. Exam compromised by streak artifact from bilateral stimulator leads. Hypodensity adjacent to the stimulator leads is unchanged from prior head CT and likely related to recent placement. No change in appearance of the brain. 04/03/21 17:30 CT head/brain wo con Stat IMPRESSION: 1. No acute intracranial findings. 2. Exam mildly compromised by streak artifact from bilateral stimulator leads. 04/04/21 11:00 US abdomen limited Routine IMPRESSION: 1. Sludge-filled gallbladder. No gallbladder wall thickening. 2. Normal caliber common bile duct. 3. The pancreas was obscured by overlying bowel gas. Hospital Course (1) Hyperbilirubinemia: -on 04/03-Patient noted to have mild scleral icterus without obvious skin jaundice for which labs were drawn showing hyperbilirubinemia at 3.4 with normal AST/ALT (total bilirubin 1.9 upon admission). -In talking with family, patient has a history of hyperbilirubinemia following antibiotics given in the past for sinus issues. It was thought that the antibiotics were what caused his hyperbilirubinemia. -In addition, with review of old records his T. Bili was 2.15 July 2020 and 2.11 September 2019 -Given history, strongly suspect Gilbert's syndrome; however, this is a diagnosis of exclusion. Work-up initiated but results pending. -AST/ALT within normal limits -Copper level pending -Acute hepatitis panel pending -CMV IgM/IgG pending -EBV panel pending -Alpha-1 antitrypsin level pending -RUQ ultrasound showing sludge in the gallbladder without ductal dilatation or evidence of acute cholecystitis -Seen by GI who also suspects Gilbert's syndrome. Appreciate recommendations. -Morphine has since been stopped and avoiding other hepatically cleared meds. Mentation overall improved -04/07: T.Bili down to 1.9 (2) Hip fracture: Impacted and mildly displaced subcapital fracture of the left femur and secondary to GLF - s/p Left hemiarthroplasty (POD #5) - mild drop in hgb (9.8-- from 12.7). Has since been stable since procedure (9.9 today) - EBL 175ml - PT/OT on board--> recommending inpatient rehab - Post-op pain seems to be adequately controlled - Patient typically resides in independent living but recently moved to SNF (after insertion of brain stimulator for parkinson's the week HAND [employer] where - does not want him to go back [facility]. Case management on board and attempting placement to [facility] but aware that he may not be accepted in which she would be agreeable for discharge back to [facility] - Recommend DVT prophylaxis X 30 to 35 days-drug, dose, duration are at the discretion of orthopedics (3) Acute blood loss anemia: Hemoglobin dropped from 12.7 down to 9.7 Hemodynamically stable Likely acute blood loss anemia secondary to bleeding from fracture prior to surgery, some EBL during surgery, and hemodilution from IV fluids stable FeSO4 added (x 30 days) continue to trend (4) S/P deep brain stimulator placement: Placed for his parkinsons disease -brain stimulator activated -D/W rep who spoke directly to surgeon to verify that these sutures are in fact dissolvable (5) Parkinson disease: Continue carbidopa-levodopa and rivastigmine With deep brain stimulator -now activated. Huge improvement in tremor noted To follow-up with neurosurgeon (6) CAD (coronary artery disease): CAD with bypass surgery - Continue isosorbide - Continue Metoprolol ECG here without acute ischemic changes -Aspirin is not on his home medication list but is being added as above for DVT prophylaxis (7) Leukocytosis: 12.54 upon presentation- likely reactive from hip fx since resolved with no infectious signs or symptoms (8) Dementia: Dementia with some overlapping delirium following hospitalizations - Patient does get confused at night Doing remarkably well status post surgery. He is awake and alert without any obvious delirium to speak of (9) Communication deficit: Improves later in the day for a few hours and even throughout continued interview - continue his cabidopa/levodopa and rivastigmine (10) Depression: Continue escitalopram 10mg PO daily dispo: [facility] vs back to SNF family updated plan of care D/W Dr. Griffin Total Time Total Time Spent Total Time Spent (In Minutes): 90 minutes including time spent with patient, discussion with [employer] rep, calling multiple times, calling case management multiple times, and discussing case with senior medical writer at [facility] Discharge Plan Discharge Items Patient Disposition: Transfer Inpatient Rehab Fac Reason For Visit: IMPATED FRACTURE OF THE LEFT HIP Discharge Diagnosis: 1. left femoral neck fracture s/p Hemiarthroplasty 2. Hyperbilirubinemia- suspect Gilbert's Activity: Per Instructions section Weightbearing: Left weightbearing Weightbearing Comment: lower extremity; use walker Non-emergency contact: Surgeon Call non-emergency contact if: you have any medication questions, your symptoms worsen, your temperature is above 101, your wound has increased redness, your wound has increased drainage and your wound pain has increased Follow-up/Referrals: Wesley Pendleton PA-C [Physician Toy Assembler] - 04/18/21 3:00 pm Lorne Gomez [Primary Care Provider] - Diet: Heart Healthy Alondra Attending Provider Instructions: - you were hospitalized with a left hip fracture and subsequently had the hip repaired (jordon-arthroplasty--on 04/01) - while you were here, your bilirubin level (part of your liver function studies) were elevated and you were mildly jaundiced. A workup was done, most of the lab results are pending. The ultrasound of your liver was normal - Given the history of your bilirubin being elevated in the past, it is suspected that you have Gilbert's (which is when your liver can not process bilirubin under times of stress). This is actually a benign issue. - Also, while you were here, your brain stimulator was turned on which nearly resolved your tremors - you need to follow up with the house Physician at [facility] (48 hours) - you need to follow up with Ortho - you need to follow up with the neurosurgeon that placed the brain stimulator - You are on ASA twice a day (recommended for 6 weeks per ortho) for blood clot prevention - I recommend repeat labs in 1 week (trend bilirubin and to trend your hemoglobin given the asa on board) -would hold lipitor for another week given elevated bilirubin Alondra Professor Of Psychiatry Provider Instructions: "VERY IMPORTANT TO READ AND REVIEW" Blood Clots and Blood Thinning Medicine: * Take your blood thinner as prescribed for 6 weeks after surgery. Pain: * Pain medication as needed for pain in your left hip. Physical Therapy: * Follow the "Hip Precautions Instructions." * In some cases, the social work nurse at the hospital will arrange to have a therapist come to your house for the first couple of weeks to help you learn these skills. * You need to practice on your own or with the help of a family member as needed. * When you learn these skills, most of the therapy can be done on your own. Home Exercise: * You were shown a series of exercises in the hospital. Do these exercises three to four times each day including the exercises you were shown in physical therapy. Walking: * Get up and walk several times each day. For the first four weeks, try not to stand or walk for more than one hour at a time. If you do stand or walk for more than one hour, you will not hurt anything, but your leg will likely swell. * As you feel comfortable, you may change from the walker or crutches to a cane and then to independent walking. SELF CARE INSTRUCTIONS AFTER TOTAL HIP REPLACEMENT Until the incision and soft tissues around your hip have healed, there is a possibility that the hip prosthesis could dislocate. A. Observe the following precautions to prevent dislocation: 1. Don't bend your hip greater than 90 degrees. 2. Avoid crossing your legs or ankles while standing or lying. 3. Sit with your feet placed 6 inches apart. 4. When sitting, keep your knees below your hips. Sit on a firm surface, avoid deep, soft chairs and couches. Use an elevated toilet seat in the bathroom. 5. Don't bend over at the waist. Use a long handled shoehorn and a sock aid to help you put on your shoes and socks. A turning and beading machine operator can help you bean picker objects that are too high or too low to reach. 6. Keep car riding to a minimum for at least one month after surgery. B. Your balance may be shaky for a while. Use crutches or a walker until directed by your doctor. C. Use hand rails when walking on stairs. D. Wear low heeled shoes with non-slip soles. E. Be sure that your floors are free of things that could trip you - throw rugs, electrical cords, small objects. Avoid wet and waxed floors, especially with crutches and canes. F. Try to walk several times a day with rest periods between. G. Continue with all the exercises taught to you in the hospital. Again, make walking a part of your daily routine. TEDs/Elastic Stockings: * The white elastic stockings help limit swelling and prevent blood clots from forming in your legs. The more you wear them, the more they work. * Wear them for six weeks. Prevention of Infection: * Take antibiotics one hour before any dental cleaning, dental work, urological procedure, gastrointestinal procedure or any invasive surgery in order to prevent your new joint from getting infected. * You may get the antibiotics from the doctor performing the procedure or we will call in a prescription to the pharmacy of your choice. Call the office for a prescription at least 2 days prior to your appointment. Things to Watch For: * Drainage from the incision site that occurs more than one week after your surgery. * Severely increased leg pain or swelling. * Increased redness at the incision site. * Fever above 101 degrees Fahrenheit. * Unusual chest pain or shortness of breath. * Unusual pain or burning with urination. Pending Studies at Discharge: Yes Studies:: copper, [id number], hepatitis panel, EBV, CMV Stand-Alone Forms: My [facility] Skilled Items Patient informed of condition?: Yes DNR: No Discharge Level of Care: Acute rehab Communicable Disease: No Discharge Prognosis: Improving Lines: None Urinary Catheter: No Medications and DC Order Prescriptions: New ferrous sulfate 325 mg (65 mg iron) Tablet,Delayed Release (Dr/Ec) 325 mg PO BIDM Qty: 60 RF: 0 aspirin 81 mg Tablet,Delayed Release (Dr/Ec) 81 mg PO BID Qty: 45 RF: 0 tramadol 50 mg Tablet 50 mg PO Q4H PRN (Reason: pain) Qty: 30 RF: 0 Continued multivitamin Tablet 1 tab PO DAILY RF: 0 polyethylene glycol 3350 [Miralax] 17 gram Powder In Packet 8.5 g PO DAILY RF: 0 isosorbide mononitrate 30 mg Tablet Extended Release 24 Hr 30 mg PO DAILY RF: 0 nitroglycerin [Nitrostat] 0.4 mg Tablet, Sublingual 0.4 mg sublingual UD PRN (Reason: Chest Pain) RF: 0 carbidopa-levodopa 25-100 mg Tablet 2 tab PO 6XD RF: 0 melatonin 5 mg Tablet 10 mg PO HS RF: 0 calcium carb and citrate-vitD3 600 mg calcium- 500 unit Tablet Extended Release 1 tab PO DAILY RF: 0 Probiotic 3 billion cell Capsule 3 mmu cells PO BID RF: 0 Metamucil 3.4 gram/5.4 gram Powder 1 dose PO DAILY RF: 0 metoprolol succinate 50 mg Capsule,Sprinkle,Er 24hr 75 mg PO DAILY RF: 0 rivastigmine tartrate 6 mg capsule 6 mg PO BID RF: 0 escitalopram oxalate 10 mg tablet 10 mg PO DAILY RF: 0 Discontinued atorvastatin [Lipitor] 40 mg Tablet 40 mg PO HS RF: 0 Discharge Orders: Discharge Order (Routine); Ordered 04/07/21 Ordered By: Georgina Salazar Admission Data Admit Date/Time: 03/31/21 15:26 Attending Provider: Perry Griffin Admit Provider: Saborio,Jhoan A Primary Care Provider: Lorne Gomez Other Providers: Jose Antonio Zamora ; Perry Griffin ; [facility] ; Camilo Tovar Other Interventions: Discharge Summary Assessment (RN) Last Done: 04/07/21 14:23 Supervising Physician Co-Signing Physician Notes I supervised Georgina Salazar PA-C on the care of this patient. I interviewed and examined the patient independently of her. The plan is as written in her note except for any following changes/exceptions: None Doing well today. Speech is quite clear. He is drinking a milkshake. He feels well overall. Ready for discharge to [facility]. Coding Level of Care Code D/C DAY MANAGEMENT >30 MINS Diagnoses Hyperbilirubinemia E80.6 Hip fracture S72.009A Acute blood loss anemia D62 S/P deep brain stimulator placement Z96.89 Parkinson disease G20 CAD (coronary artery disease) I25.10 Leukocytosis D72.829 Dementia F03.90 Communication deficit F80.9 Depression F32.A
--- NOTE | 2021-04-07 14:36 | Hospitalist Progress Note ---
Date of Service April 06, 2021 Assessment & Plan (1) Hyperbilirubinemia: Plan: -on 04/03-Patient noted to have mild scleral icterus without obvious skin jaundice for which labs were drawn showing hyperbilirubinemia at 3.4 with normal AST/ALT (total bilirubin 1.9 upon admission). -In talking with family, patient has a history of hyperbilirubinemia following antibiotics given in the past for sinus issues. It was thought that the antibiotics were what caused his hyperbilirubinemia. -In addition, with review of old records his T. Bili was 2.15 July 2020 and 2.11 September 2019 -Given history, strongly suspect Gilbert's syndrome; however, this is a diagnosis of exclusion. Work-up initiated but results pending. -AST/ALT within normal limits -Copper level pending -Acute hepatitis panel pending -CMV IgM/IgG pending -EBV panel pending -Alpha-1 antitrypsin level pending -RUQ ultrasound showing sludge in the gallbladder without ductal dilatation or evidence of acute cholecystitis -Seen by GI who also suspects Gilbert's syndrome. Appreciate recommendations. -Morphine has since been stopped and avoiding other hepatically cleared meds. Mentation overall improved -TB downtrending. 2.0 today (2) Hip fracture: Plan: Impacted and mildly displaced subcapital fracture of the left femur and secondary to GLF - s/p Left hemiarthroplasty (POD #5) - mild drop in hgb (9.8-- from 12.7). 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 aware that [facility] may not be accepted in which she would be agreeable for discharge back to [facility] - Recommend DVT prophylaxis X 30 to 35 days-drug, dose, duration are at the discretion of orthopedics (3) Acute blood loss anemia: Plan: Hemoglobin dropped from 12.7 down to 9.7 Hemodynamically stable Likely acute blood loss anemia secondary to bleeding from fracture prior to surgery, some EBL during surgery, and hemodilution from IV fluids stable FeSO4 added (x 30 days) continue to trend (4) S/P deep brain stimulator placement: Plan: Placed for his parkinsons disease -was to go next week to get settings and activated.Per , Rep coming to [facility] (to wherever patient is-- [facility]/here/[facility]raydon Luis) to activate -Still has sutures in place on the top of his scalp-patient reports that he was supposed to have these removed on Wednesday 04/04; however, to me they appear to be dissolvable. I have a call out to [facility] regarding this and if they are to be removed-- awaiting response. now believes these are dissolvable (5) Parkinson disease: Plan: Continue carbidopa-levodopa and rivastigmine With deep brain stimulator -now activated. Huge improvement in tremor noted To follow-up with neurosurgeon (6) CAD (coronary artery disease): Plan: CAD with bypass surgery - Continue isosorbide - Continue Metoprolol ECG here without acute ischemic changes -Aspirin is not on his home medication list but is being added as above for DVT prophylaxis (7) Leukocytosis: Plan: 12.54 upon presentation- likely reactive from hip fx since resolved with no infectious signs or symptoms (8) Dementia: Plan: Dementia with some overlapping delirium following hospitalizations - Patient does get confused at night Doing remarkably well status post surgery. (9) Communication deficit: Plan: Improves later in the day for a few hours and even throughout continued interview - continue his cabidopa/levodopa and rivastigmine (10) Depression: Plan: Continue escitalopram 10mg PO daily Plan: dispo: [facility] vs back to SNF family updated plan of care D/W Dr. Griffin Admission and Anticipated Discharge Date Admission Date: March 31, 2021 Subjective Patient seen on daily rounds today. Vocalizes no significant complaints or concerns. Moving bowel bladder without difficulty. Denies fevers, chills, chest pain, shortness of breath, abdominal pain, nausea or vomiting. Nursing voices no complaints or concerns. Review of Systems Review of Systems: All systems reviewed and are unremarkable except as noted in HPI and below Denies fevers, chills, headache, nasal congestion, sore throat, cough, chest pain, shortness of breath, palpitations, orthopnea, PND, abdominal pain, nausea, vomiting, diarrhea, constipation, dysuria, hematuria, frequency, back pain, joint pain or swelling, easy bruising or bleeding, skin lesions or rashes. Physical Exam Physical Exam: General: Resting comfortably in his bedside commode. Much brighter affect today. Still with delayed response but articulation improved. NAD. HEENT: Sutures intact to scalp. Dry. Well approximated. Buccal mucosa is moist and pink Neck: No JVD. Negative hepatojugular reflex Cardiac: RRR without M/G/R Lungs: CTA without W/R/R Abdomen: Normoactive X4. Soft and nontender in all quadrants. Extremities: No peripheral clubbing cyanosis or edema Neuro: A&O X4 cranial nerves II through XII are grossly intact no focal neuro deficits Skin: See HEENT Psych: Appropriate affect pleasant and cooperative Results & Data Results & Data ([facility]) Vital Signs (Past 12 Hours) Vital Signs Temp Pulse Resp BP Pulse Ox 04/07/21 14:23 36.4 C L 68 18 164/69 H 98 04/07/21 07:30 36.4 C L 68 18 164/69 H 98 Laboratory Results H&H: 9.9/29.6 Total bilirubin downtrending. 2.0. AST and ALT remain normal. Rest of metabolic panel unremarkable. PG Care Time/CCT Total # of Minutes Spent Total Time Spent with Patient: Total time spent is greater than 50% in coordination of care (as documented) at patient's floor/unit and/or counseling patient: [place] [address] Subseq Hosp Care Lvl 1 Patient Type Established Diagnoses Hyperbilirubinemia E80.6 Hip fracture S72.009A Acute blood loss anemia D62 S/P deep brain stimulator placement Z96.89 Parkinson disease G20 CAD (coronary artery disease) I25.10 Leukocytosis D72.829 Dementia F03.90 Communication deficit F80.9 Depression F32.A
[2021-04-15 16:57] LABS: CMV IgM Antibody <30.00 AU/mL; Copper, Serum 90 mcg/dL (70-175); EBV Nuclear Ag Antibody >600.00 U/mL; EBV Virus Capsid Ag IgG Ab >750.00 U/mL; Epstein Barr Virus Early Ag Ab >150.00 U/mL; Hepatitis A Antibody IgM NON-REACTIVE (NON-REACTIVE); Hepatitis B Core Antibody IgM NON-REACTIVE (NON-REACTIVE)
== END 2021-04-07 15:39 | DRG 522 ==
LOC: ED 10:48 → SUATTDRO 15:26 → 3N 15:26

== ENCOUNTER 2022-01-31 08:43 | Observation (INO) ==
[2022-01-31] MEDS ORDERED: SODIUM CHLORIDE 0.9% 1000ML 1,000 ML IV SCH (09:00)
--- NOTE | 2022-01-31 09:00 | XRay Report ---
SINGLE VIEW CHEST CLINICAL HISTORY: Generalized weakness. FINDINGS: An AP, portable, upright chest radiograph is compared to study dated 04/24/2021. The patien t is status post midline sternotomy. An electronic device projects over the left mid chest with leads extending the neck. The heart is mildly enlarged noting atherosclerotic calcification of the thoraci c aorta. The pulmonary vasculature is noncongested. Chronic interstitial thickening is similar to pre vious. There is mild bibasilar atelectasis. The lungs and pleural spaces are otherwise clear. No pneu mothorax is seen. The skeletal structures are osteopenic. The bony thorax is grossly intact. IMPRESSION: Mild cardiomegaly with no active disease in the chest. ACT 112: Negative or not required by law. Electronically signed by: Fabian Eric M.D. 01/31/2022 8:58 AM
--- NOTE | 2022-01-31 09:05 | Emergency Department Note ---
Impression & Plan ALFREDITO (acute kidney injury), Acute UTI ED Provider Note NAME: SORAIDA MEI AGE: 81 SEX: M : 1940 ARRIVES VIA: Ambulance INFORMANT: [Patient][ems] ED PROVIDER(S): [Fabian Diaz MD] CHIEF COMPLAINT: Abnormal labs HISTORY OF PRESENT ILLNESS: Patient is an 81-year-old male presents the ER with abnormal laboratory testing. His creatinine yesterday was over 2, this is way above his baseline. The patient has some dementia. He currently has no complaints. He denies urinary discomfort, he denies nausea or vomiting, shortness of breath, abdominal pain. He has not had fever. He believes he is drinking enough fluids. Given his dementia history, no further history obtainable. REVIEW OF SYSTEMS: Unobtainable given the dementia. PMHx/PSHx: See Below SOCIAL HISTORY: See Below. PHYSICAL EXAM: GENERAL: Patient is in no acute distress. HEENT: No acute trauma, normocephalic atraumatic, mucous membranes moist, no nasal congestion, no scleral icterus. NECK: No stridor, no adenopathy, no meningismus, trachea is midline. LUNGS: Clear to auscultation bilaterally, no wheeze, no rhonchi, breath sounds equal. HEART: Without murmurs gallops or rubs, regular rate and rhythm. Heart tones are distant. ABDOMEN: Soft, nontender, bowel sounds positive, no peritonitis. EXTREMITIES: No cyanosis or edema, full range of motion of all the joints without pain or difficulty, no signs for acute trauma. NEUROLOGIC: Awake and alert, no acute motor or sensory deficits, no focal weakness. SKIN: No rash, no jaundice, no diaphoresis. Pale. Groin: No erythema or rash DIFFERENTIAL DIAGNOSIS: Infection, dehydration, UTI, hydronephrosis, urinary obstruction, renal failure, metabolic abnormality, hypo/hyperglycemia, electrolyte disturbance, anemia, as well as other pathologies. EMERGENCY DEPARTMENT COURSE/PROCEDURES: ECG: Indication was weakness. The ECG shows a normal sinus rhythm with a rate of 62. There is some baseline artifact. There are some inverted T waves in the inferior and anterior leads. No ST elevation. No PVCs. The QTc is 426. Compared to an ECG on 24 April 2021, the inverted T waves inferiorly and anteriorly are new. Continuous Cardiac Monitoring: An order was placed for continuous cardiac monitoring. The monitor shows a rate of 63 with normal sinus rhythm. MEDICAL DECISION MAKING: There is no leukocytosis or worrisome anemia. There is a normal platelet count. There is evidence for acute kidney injury with a creatinine of 1.96. This is far above his baseline creatinine values. No electrolyte abnormality in need of emergent correction. No concerning liver enzyme elevation. The patient appeared to be in a euthyroid state. ECG shows a normal sinus rhythm with some T wave changes. No ST elevation. Cardiac enzyme testing x1 is not consistent with acute cardiac injury. Urinalysis shows findings consistent with infection. COVID test returned negative. Chest x-ray did not show pneumonia or CHF. Abdominal and pelvis CT did not show any evidence for bowel obstruction or hydronephrosis. On exam, the patient denied pain, he seemed to be comfortable. Patient received IV saline, 1 L. He received IV ceftriaxone as antibiotic coverage. Given the acute kidney injury, given his age, given the UTI, I do think a hospital stay is warranted. Patient would benefit from monitoring, IV hydration, IV antibiotics. I spoke with the patient, I talked to case management. The on-call hospitalist has been consulted. Past Med/Surg History Medical History Anemia CAD (coronary artery disease) Communication deficit Dementia Depression Diverticulitis Pacemaker Parkinson disease Urethral stricture Surgical History History of hemiarthroplasty of hip Hx of CABG Status post deep brain stimulator placement Family History (Updated 01/31/22 @ 11:45 by THELMA Moreno) Other Family history non-contributory Social History Smoking Status: Unknown if ever smoked Preferred Language: Persian Communication Ability: Impaired Cost Manager Required: No marital status: Current Living Situation: [facility] How many Children do You have: 1 Feels Safe at Home: Yes Assistive Devices: Glasses Allergies Allergies Allergy/AdvReac Type Severity Reaction Status Date / Time amoxicillin Allergy Severe LIVER Verified 01/31/22 11:31 REACTION, BECAME JAUNDICE clavulanic acid Allergy Severe LIVER Verified 01/31/22 11:31 REACTION, JAUNDICE Quinolones Allergy Mild LIVER, Verified 01/31/22 11:31 JAUNDICE; ALLERGY TO CIPRO, LEVAQUIN, & MOXIFLOXACIN Home Meds Home Medications Medication Instructions Recorded Confirmed carbidopa 25 mg-levodopa 100 mg See Rx Instructions .Route .COMPLEX 09/01/18 01/31/22 tablet isosorbide mononitrate 30 mg 30 mg PO DAILY 09/01/18 01/31/22 tablet,extended release 24 hr lactobacillus combination no.4 3 3 mmu cells PO BID 09/01/18 01/31/22 billion cell capsule (Probiotic) melatonin 5 mg tablet 10 mg PO HS 09/01/18 01/31/22 metoprolol succinate 50 mg capsule 75 mg PO QAM 09/01/18 01/31/22 sprinkle, ext. release 24 hr nitroglycerin 0.4 mg sublingual 0.4 mg sublingual UD PRN Chest Pain 09/01/18 01/31/22 tablet (Nitrostat) polyethylene glycol 3350 17 gram 8.5 g PO QAM 09/01/18 01/31/22 oral powder packet (Miralax) psyllium husk 3.4 gram/5.4 gram 1 dose PO QAM 09/01/18 01/31/22 oral powder (Metamucil) rivastigmine tartrate 6 mg capsule 6 mg PO BID 03/31/21 01/31/22 atorvastatin 40 mg tablet 40 mg PO HS 01/31/22 01/31/22 glycopyrrolate 1 mg tablet 1 mg PO TID 01/31/22 01/31/22 lvxjjonj-zgoyvzvo-bwjsh acid 400 1 tab PO QAM 01/31/22 01/31/22 mcg-vit K 20 mcg-lycop 300 mcg tablet (Men's Multivitamin) quetiapine 25 mg tablet 25 mg PO HS 01/31/22 01/31/22 Previous Rx's Medication Instructions Recorded aspirin 81 mg tablet,delayed 81 mg PO BID #45 tabs 04/07/21 release tramadol 50 mg tablet 50 mg PO Q4H PRN pain #30 tabs 04/07/21 Results & Data (ED) Vital Signs Vital Signs - 24 hr 01/31/22 08:52 01/31/22 08:52 01/31/22 09:55 Temperature 37.0 C Temperature Source Oral Pulse Rate 63 Pulse Rate [Apical] 55 L Pulse Rate from SpO2 Sensor Respiratory Rate 16 18 Respiratory Effort / Characteristics Non-Labored Respiratory Depth Normal Blood Pressure 128/42 L Blood Pressure [Right Arm] 130/49 L Blood Pressure Mean 70 Blood Pressure Mean [Right Arm] 76 Blood Pressure Position Sitting Pulse Oximetry 96 95 Oxygen Delivery Method Room Air Room Air Room Air Sepsis Recent Fever Within 48 Hours No Sepsis New/Unexplained Change in Mental Status No Sepsis Action Taken by Nursing No Action Required 01/31/22 08:47 01/31/22 08:48 01/31/22 09:00 Temperature Temperature Source Pulse Rate 63 61 Pulse Rate [Apical] Pulse Rate from SpO2 Sensor Respiratory Rate 17 12 Respiratory Effort / Characteristics Respiratory Depth Blood Pressure 128/42 L Blood Pressure [Right Arm] Blood Pressure Mean 70 Blood Pressure Mean [Right Arm] Blood Pressure Position Pulse Oximetry Oxygen Delivery Method Sepsis Recent Fever Within 48 Hours Sepsis New/Unexplained Change in Mental Status Sepsis Action Taken by Nursing 01/31/22 09:30 01/31/22 09:54 01/31/22 09:54 Temperature Temperature Source Pulse Rate 60 66 Pulse Rate [Apical] Pulse Rate from SpO2 Sensor Respiratory Rate 24 20 Respiratory Effort / Characteristics Respiratory Depth Blood Pressure 130/49 L Blood Pressure [Right Arm] Blood Pressure Mean 76 Blood Pressure Mean [Right Arm] Blood Pressure Position Pulse Oximetry 98 Oxygen Delivery Method Room Air Sepsis Recent Fever Within 48 Hours Sepsis New/Unexplained Change in Mental Status Sepsis Action Taken by Nursing 01/31/22 10:00 01/31/22 10:30 01/31/22 11:00 Temperature Temperature Source Pulse Rate 55 L 49 L 67 Pulse Rate [Apical] Pulse Rate from SpO2 Sensor 49 L 68 Respiratory Rate 20 23 19 Respiratory Effort / Characteristics Respiratory Depth Blood Pressure Blood Pressure [Right Arm] Blood Pressure Mean Blood Pressure Mean [Right Arm] Blood Pressure Position Pulse Oximetry 98 97 Oxygen Delivery Method Nasal Cannula Room Air Sepsis Recent Fever Within 48 Hours Sepsis New/Unexplained Change in Mental Status Sepsis Action Taken by [facility] Medications Current Medication List: was personally reviewed by me Laboratory Data Attestation: I reviewed the patient's lab results. Result diagrams: 01/31/22 09:00 01/31/22 09:00 Lab Results 01/31/22 01/31/22 01/31/22 Range/Units 09:00 09:00 09:00 WBC 7.81 (4.8-10.8) K/ul RBC 4.21 L (4.63-6.08) M/uL Hgb 13.1 L (14.0-18.0) g/dl Hct 38.3 L (40.1-51.0) % MCV 91.0 (80.0-100.0) fL MCH 31.1 (25.0-34.0) pg MCHC 34.2 (32.0-36.0) g/dL RDW Std Deviation 43.7 (36.4-46.3) fL RDW Coeff of Jeremías 13.2 (11.5-14.5) % Plt Count 257 (130-400) K/uL MPV 9.6 (9.4-12.4) fL Immature Gran % (Auto) 0.6 % Neut % (Auto) 54.3 % Lymph % (Auto) 33.2 % Divide % (Auto) 8.7 % Eos % (Auto) 2.8 % Baso % (Auto) 0.4 % Neut # (Auto) 4.24 (1.4-6.5) K/uL Lymph # (Auto) 2.59 (1.2-3.4) K/uL Divide # (Auto) 0.68 (0.24-0.82) K/uL Eos # (Auto) 0.22 (0-0.50) K/uL Baso # (Auto) 0.03 (0-0.2) K/uL Immature Gran # (Auto) 0.05 H (0.00-0.02) K/uL Sodium 138 (136-145) mmol/L Potassium 5.0 (3.5-5.1) mmol/L Chloride 103 (98-107) mmol/L Carbon Dioxide 30 (21-32) mmol/L Anion Gap 5 (3-11) BUN 37 H (6-23) mg/dl Creatinine 1.96 H (0.6-1.4) mg/dl Est Cr Clr Drug Dosing 28.7 ml/min Est GFR ( Amer) 35.6 ml/min Est GFR (Non-Af Amer) 30.7 ml/min BUN/Creatinine Ratio 18.9 (10-20) Glucose 97 (70-99(Fasting)) mg/dl Calcium 9.2 (8.5-10.1) mg/dl Magnesium 2.3 (1.7-2.4) mg/dl Total Bilirubin 1.5 H (0.2-1.0) mg/dl AST 16 (13-39) U/L ALT 4 L (7-52) U/L Alkaline Phosphatase 91 (34-104) U/L Troponin I High Sens 10.6 (0-20) pg/ml Total Protein 6.3 (6.0-8.3) gm/dl Albumin 4.0 (3.4-5.0) gm/dl Globulin 2.3 L (2.5-4.0) gm/dl Albumin/Globulin Ratio 1.7 (0.9-2) TSH 3.049 (0.300-4.500) uIu/ml Urine Color Urine Appearance (Clear) Urine pH (4.5-7.5) Ur Specific Glenvil (1.000-1.030) Urine Protein (Negative) Urine Glucose (UA) (Negative) Urine Ketones (Negative) Urine Blood (Negative) Urine Nitrite (Negative) Urine Bilirubin (Negative) Urine Urobilinogen (Negative) Ur Leukocyte Esterase (Negative) Urine WBC (Auto) (0-5) /hpf Urine RBC (Auto) (0-4) /hpf U Hyaline Cast (Auto) (0-5) /lpf U Epithel Cells (Auto) (0-5) /lpf Urine Bacteria (Auto) (Negative) Urine Yeast (None Prsent) 01/31/22 Range/Units 09:45 WBC (4.8-10.8) K/ul RBC (4.63-6.08) M/uL Hgb (14.0-18.0) g/dl Hct (40.1-51.0) % MCV (80.0-100.0) fL MCH (25.0-34.0) pg MCHC (32.0-36.0) g/dL RDW Std Deviation (36.4-46.3) fL RDW Coeff of Jeremías (11.5-14.5) % Plt Count (130-400) K/uL MPV (9.4-12.4) fL Immature Gran % (Auto) % Neut % (Auto) % Lymph % (Auto) % Divide % (Auto) % Eos % (Auto) % Baso % (Auto) % Neut # (Auto) (1.4-6.5) K/uL Lymph # (Auto) (1.2-3.4) K/uL Divide # (Auto) (0.24-0.82) K/uL Eos # (Auto) (0-0.50) K/uL Baso # (Auto) (0-0.2) K/uL Immature Gran # (Auto) (0.00-0.02) K/uL Sodium (136-145) mmol/L Potassium (3.5-5.1) mmol/L Chloride (98-107) mmol/L Carbon Dioxide (21-32) mmol/L Anion Gap (3-11) BUN (6-23) mg/dl Creatinine (0.6-1.4) mg/dl Est Cr Clr Drug Dosing ml/min Est GFR ( Amer) ml/min Est GFR (Non-Af Amer) ml/min BUN/Creatinine Ratio (10-20) Glucose (70-99(Fasting)) mg/dl Calcium (8.5-10.1) mg/dl Magnesium (1.7-2.4) mg/dl Total Bilirubin (0.2-1.0) mg/dl AST (13-39) U/L ALT (7-52) U/L Alkaline Phosphatase (34-104) U/L Troponin I High Sens (0-20) pg/ml Total Protein (6.0-8.3) gm/dl Albumin (3.4-5.0) gm/dl Globulin (2.5-4.0) gm/dl Albumin/Globulin Ratio (0.9-2) TSH (0.300-4.500) uIu/ml Urine Color Dark Yellow Urine Appearance Cloudy A (Clear) Urine pH 5.0 (4.5-7.5) Ur Specific Glenvil 1.030 (1.000-1.030) Urine Protein 1+ H (Negative) Urine Glucose (UA) Negative (Negative) Urine Ketones 1+ H (Negative) Urine Blood Negative (Negative) Urine Nitrite Negative (Negative) Urine Bilirubin Negative (Negative) Urine Urobilinogen Negative (Negative) Ur Leukocyte Esterase 1+ H (Negative) Urine WBC (Auto) 10-30 H (0-5) /hpf Urine RBC (Auto) 10-30 H (0-4) /hpf U Hyaline Cast (Auto) 1-5 (0-5) /lpf U Epithel Cells (Auto) 0-5 (0-5) /lpf Urine Bacteria (Auto) 4+ H (Negative) Urine Yeast Present A (None Prsent) Administered Medications Discontinued Medications Sodium Chloride (Nss 1000ml) 1,000 mls @ 999 mls/hr IV .Q1H1M [place]T Stop: 01/31/22 10:00 Last Infusion: 01/31/22 10:57 Dose: 0 mls/hr Documented By: Admin: 01/31/22 09:54 Dose: 999 mls/hr Documented By: TANVI Sodium Chloride (Nss 1000ml) 1,000 mls @ 999 mls/hr IV .Q1H1M ONE Stop: 01/31/22 11:21 Last Admin: 01/31/22 11:30 Dose: 999 mls/hr Documented By: ARACELI Ceftriaxone Sodium (Rocephin) 2,000 mg in 70 mls @ 140 mls/hr IV NOW STA Stop: 01/31/22 11:02 Last Infusion: 01/31/22 12:13 Dose: 0 mls/hr Documented By: Admin: 01/31/22 11:29 Dose: 140 mls/hr Documented By: ARACELI Imaging Data Radiologist's Impression: Abdomen/Pelvis CT 01/31/22 08:47 CT OF THE ABDOMEN AND PELVIS WITHOUT CONTRAST CLINICAL HISTORY: Acute kidney injury. Possible hydronephrosis. COMPARISON STUDY: Right upper quadrant ultrasound April 04, 2021. CT of the abdomen and pelvis May 15, 2015. TECHNIQUE: Axial images of the abdomen and pelvis were obtained without IV contrast. Images were reviewed in the axial, sagittal, and coronal planes. Automated exposure control was utilized for the study. A dose lowering technique was utilized adhering to the principles of ALARA. FINDINGS: Lung bases are unremarkable. No pneumatosis, free air or portal venous gas is present. No renal, ureteral or bladder calculi are present although images of the pelvis are degraded by streak artifact from a left hip arthroplasty. Moderate right renal atrophy is noted. There is extensive plaque of the abdominal aorta and branch vessels, suboptimally assessed on this unenhanced exam. Infrarenal abdominal aorta is ectatic, measuring 2.5 cm. Evaluation of the remainder of the abdomen and pelvis is suboptimal on this unenhanced exam. Liver, spleen, adrenal glands and pancreas are unremarkable. There is no evidence for a bowel obstruction. The appendix is normal. Colonic diverticulosis is noted without evidence for acute diverticulitis. Moderate amount stool within the colon and rectum is noted. No lymphadenopathy is present. There is no ascites. No acute fracture or suspicious lesion within the visualized skeletal structures. IMPRESSION: 1. No urinary calculi or hydronephrosis. Moderate right renal atrophy. 2. Moderate amount stool within the colon and rectum. No bowel obstruction. 3. Colonic diverticulosis without evidence for acute diverticulitis. 4. Extensive atherosclerotic plaque of the abdominal aorta and branch vessels. ACT 112: Negative or not required by law. Electronically signed by: Hai Li M.D. 01/31/2022 10:16 AM Chest X-Ray 01/31/22 08:47 SINGLE VIEW CHEST CLINICAL HISTORY: Generalized weakness. FINDINGS: An AP, portable, upright chest radiograph is compared to study dated 04/24/2021. The patient is status post midline sternotomy. An electronic device projects over the left mid chest with leads extending the neck. The heart is mildly enlarged noting atherosclerotic calcification of the thoracic aorta. The pulmonary vasculature is noncongested. Chronic interstitial thickening is similar to previous. There is mild bibasilar atelectasis. The lungs and pleural spaces are otherwise clear. No pneumothorax is seen. The skeletal structures are osteopenic. The bony thorax is grossly intact. IMPRESSION: Mild cardiomegaly with no active disease in the chest. ACT 112: Negative or not required by law. Electronically signed by: Fabian Eric M.D. 01/31/2022 8:58 AM Discharge Plan Visit Data Chief Complaint: Recheck/Abnormal Lab/Rx ED Provider: Fabian Diaz Discharge Problem: ALFREDITO (acute kidney injury), Acute UTI Patient Disposition: Admitted As Inpatient Condition: Fair Discharge Instructions Interventions: ED Discharge Assessment Last Done: 01/31/22 11:48
[2022-01-31 09:14] LABS: Basophils # (auto) 0.03 K/uL (0-0.2); Basophils % (auto) 0.4 %; Eosinophils # (auto) 0.22 K/uL (0-0.50); Eosinophils % (auto) 2.8 %; Hematocrit (blood only) 38.3 % (40.1-51.0); Hemoglobin 13.1 g/dl (14.0-18.0); Immature Granulocytes # (auto) 0.05 K/uL (0.00-0.02); Immature Granulocytes % (auto) 0.6 %; Lymphocytes # (auto) 2.59 K/uL (1.2-3.4); Lymphocytes % (auto) 33.2 %; Mean Corpuscular Hemoglobin 31.1 pg (25.0-34.0); Mean Corpuscular Hgb Conc 34.2 g/dL (32.0-36.0); Mean Platelet Volume 9.6 fL (9.4-12.4); Monocytes # (auto) 0.68 K/uL (0.24-0.82); Monocytes % (auto) 8.7 %; Neutrophils # (auto) 4.24 K/uL (1.4-6.5); Neutrophils % (auto) 54.3 %; Platelet Count 257 K/uL (130-400); RDW Coefficient of Variation 13.2 % (11.5-14.5); RDW Standard Deviation 43.7 fL (36.4-46.3); Red Blood Count 4.21 M/uL (4.63-6.08); White Blood Count 7.81 K/ul (4.8-10.8)
[2022-01-31 10:00] LABS: Troponin I High Sensitivity 10.6 pg/ml (0-20)
[2022-01-31 10:09] LABS: Appearance Urine Cloudy (Clear); Bacteria Urine Automated 4+ (Negative); Bilirubin Urine Negative (Negative); Blood Urine Negative (Negative); Color Urine Dark Yellow; Epithelial Cell Urine Auto 0-5 /lpf (0-5); Glucose Urine UA Negative (Negative); Ketones Urine 1+ (Negative); Leukocyte Esterase Urine 1+ (Negative); Nitrite Urine Negative (Negative); Protein Urine 1+ (Negative); Urobilinogen Urine Negative (Negative)
[2022-01-31 10:11] LABS: Albumin Globulin Ratio 1.7 (0.9-2); BUN Creatinine Ratio 18.9 (10-20); Bilirubin,Total 1.5 mg/dl (0.2-1.0); Calcium 9.2 mg/dl (8.5-10.1); Creatinine Clr Calc Pharmacy 28.7 ml/min; Est GFR (African American) 35.6 ml/min; Est GFR (Non-African American) 30.7 ml/min; Globulin 2.3 gm/dl (2.5-4.0); Magnesium 2.3 mg/dl (1.7-2.4); Total Protein 6.3 gm/dl (6.0-8.3)
--- NOTE | 2022-01-31 10:19 | CT Scan Report ---
CT OF THE ABDOMEN AND PELVIS WITHOUT CONTRAST CLINICAL HISTORY: Acute kidney injury. Possible hydronephrosis. COMPARISON STUDY: Right upper quadrant ultrasound April 04, 2021. CT of the abdomen and pelvis Dec 2014. TECHNIQUE: Axial images of the abdomen and pelvis were obtained without IV contrast. Images were revi ewed in the axial, sagittal, and coronal planes. Automated exposure control was utilized for the dylan dy. A dose lowering technique was utilized adhering to the principles of ALARA. FINDINGS: Lung bases are unremarkable. No pneumatosis, free air or portal venous gas is present. No r enal, ureteral or bladder calculi are present although images of the pelvis are degraded by streak ar tifact from a left hip arthroplasty. Moderate right renal atrophy is noted. There is extensive plaque of the abdominal aorta and branch vessels, suboptimally assessed on this unenhanced exam. Infrarenal abdominal aorta is ectatic, measuring 2.5 cm. Evaluation of the remainder of the abdomen and pelvis is suboptimal on this unenhanced exam. Liver, spleen, adrenal glands and pancreas are unremarkable. T here is no evidence for a bowel obstruction. The appendix is normal. Colonic diverticulosis is noted without evidence for acute diverticulitis. Moderate amount stool within the colon and rectum is noted . No lymphadenopathy is present. There is no ascites. No acute fracture or suspicious lesion within t he visualized skeletal structures. IMPRESSION: 1. No urinary calculi or hydronephrosis. Moderate right renal atrophy. 2. Moderate amount stool within the colon and rectum. No bowel obstruction. 3. Colonic diverticulosis without evidence for acute diverticulitis. 4. Extensive atherosclerotic plaque of the abdominal aorta and branch vessels. ACT 112: Negative or not required by law. Electronically signed by: Hai Li M.D. 01/31/2022 10:16 AM
[2022-01-31] MEDS ORDERED: SODIUM CHLORIDE 0.9% 1000ML 1,000 ML IV ONE (10:21)
[2022-01-31] MEDS ORDERED: cefTRIAXone SODIUM 2,000 MG/70 ML BAG IV STA (10:33)
--- NOTE | 2022-01-31 11:48 | History & Physical Report ---
Date of Service January 31, 2022 Assessment & Plan (1) ALFREDITO (acute kidney injury): Plan: MARK III in the setting of UTI and bactrim use, patient also with history of urethral stricture - Above likely a combination of all - bladder scan q6 hours with straight cath to evaluate for retention - place kraus if needed - follow renal function - 1 liters crystalloid in EMD and patient demonstrated he is able to ask for water and drink - will continue intake with oral hydration - renal dose medicatinos as needed - avoid further nephrotoxic medicaitons (2) UTI (urinary tract infection): Plan: UTI following Bactrim prescription - 2018 psuedomonas in urine- change to cefepime - await culture- transition to oral or adjust coverage as guided (3) CAD (coronary artery disease): Plan: With history of CABG x4 continue asa continue isosorbide continue metoprolol continue ntg prn (4) Parkinson disease: Plan: Continue his carbidopa/levadopa and rivastigmine (5) Constipation: Plan: patient reports no BM 3 days - will add on docusate/senna now and daily (6) Depression: Plan: Continue escitalopram History of Present Illness Primary Care Provider: [facility] 81 YOM with past medical history of: CABG x4, HLD, HTN, parkinsonian dementia, s/p brain stimulator placement and pacemaker placement at [facility], lt hip hemiarthroplasty 03/30, urine retention with history of stricture. Patient is a resident at [facility]. 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 The patient was previously treated for a presumed UTI with bactrim from Jan 19-. In the EMD the patient had routine labs performed to include UA. 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 He ws given 2liters of crystalloid in the EMD and started on Rocephin. Patient will be admitted to medical floor for continued abx while awaiting UA culture, continue with bladder scans and intake and output for possible retention. Patient known from previous admission and following activation of his brain stimulator he is improved in his symptoms from his Parkinson's and mentation. COVID test on admission is: NEGATIVE Allergies Allergy/AdvReac Type Severity Reaction Status Date / Time amoxicillin Allergy Severe LIVER Verified 01/31/22 11:31 REACTION, BECAME JAUNDICE clavulanic acid Allergy Severe LIVER Verified 01/31/22 11:31 REACTION, JAUNDICE Quinolones Allergy Mild LIVER, Verified 01/31/22 11:31 JAUNDICE; ALLERGY TO CIPRO, LEVAQUIN, & MOXIFLOXACIN Home Medications Medication Instructions Recorded Confirmed Type carbidopa 25 mg-levodopa 100 mg See Rx Instructions .Route .COMPLEX 09/01/18 01/31/22 History tablet isosorbide mononitrate 30 mg 30 mg PO DAILY 09/01/18 01/31/22 History tablet,extended release 24 hr lactobacillus combination no.4 3 3 mmu cells PO BID 09/01/18 01/31/22 History billion cell capsule (Probiotic) melatonin 5 mg tablet 10 mg PO HS 09/01/18 01/31/22 History metoprolol succinate 50 mg capsule 75 mg PO QAM 09/01/18 01/31/22 History sprinkle, ext. release 24 hr nitroglycerin 0.4 mg sublingual 0.4 mg sublingual UD PRN Chest Pain 09/01/18 01/31/22 History tablet (Nitrostat) polyethylene glycol 3350 17 gram 8.5 g PO QAM 09/01/18 01/31/22 History oral powder packet (Miralax) psyllium husk 3.4 gram/5.4 gram 1 dose PO QAM 09/01/18 01/31/22 History oral powder (Metamucil) rivastigmine tartrate 6 mg capsule 6 mg PO BID 03/31/21 01/31/22 History aspirin 81 mg tablet,delayed 81 mg PO BID #45 tabs 04/07/21 01/31/22 Rx release tramadol 50 mg tablet 50 mg PO Q4H PRN pain #30 tabs 04/07/21 01/31/22 Rx atorvastatin 40 mg tablet 40 mg PO HS 01/31/22 01/31/22 History glycopyrrolate 1 mg tablet 1 mg PO TID 01/31/22 01/31/22 History nklapoer-ifezidlh-vrdpf acid 400 1 tab PO QAM 01/31/22 01/31/22 History mcg-vit K 20 mcg-lycop 300 mcg tablet (Men's Multivitamin) quetiapine 25 mg tablet 25 mg PO HS 01/31/22 01/31/22 History Past Med/Surg History Medical History Anemia CAD (coronary artery disease) Communication deficit Dementia Depression Diverticulitis Pacemaker Parkinson disease Urethral stricture Surgical History History of hemiarthroplasty of hip Hx of CABG Status post deep brain stimulator placement Family History (Updated 01/31/22 @ 11:45 by THELMA Moreno) Other Family history non-contributory Social History Smoking Status: Never smoker Hx Alcohol Use: No Hx Substance Use: No Preferred Language: Telugu Communication Ability: Effective Spinal Surgeon Required: No Beliefs That Will Affect Care: None marital status: Current Living Situation: Assisted Current Living Situation Comment: assisted living, has caregivers How many Children do You have: 1 Feels Safe at Home: Yes Assistive Devices: Bedside Commode, Mechanical Lift, Raised Toilet Seat and Walker Review of Systems Review of Systems: REVIEW OF SYSTEMS: Constitutional: No fever, sweats or chills Eyes: No diplopia, no worsening or blurred vision ENT: normal hearing, no trouble swallowing Respiratory: No cough, sputum, dyspnea at rest or on exertion Cardiovascular: No chest pain, tightness or palpitations Abdomen: No pain, nausea, vomiting, diarrhea or constipation : (+) frequency and retention Musculoskeletal: No joint pain, calf pain, swelling Neurologic: No weakness, numbness/tingling, or balance problems Psychiatric: No anxiety or depression Skin: No rash or itch Physical Exam Physical Exam: PHYSICAL EXAM: General: awake, alert, appropriate, no apparent distress Head: Normocephalic, atraumatic, old scar from brain stimulator placment well healed ENT: PERRL, EOMI, no pharyngeal exudate, mucous membranes moist Neuro: AAO x 3, speech clear and appropriate, strength intact bilaterally 5/5, sensation intact and equal all extremities and dermatomes, no pronator drift Chest: equal rise and fall of the chest, no accessory muscle use, no heaves or thrills, Clear to auscultation, on room air, Cardiac: Regular rate and rhythm, telemetry reviewed, skin warm dry, cap refill <3 seconds, peripheral pulses +2 no JVD, no murmur, no JVD, no edema GI: NABS x 4 quadrants, softtly distended, nontender to palpation, tympanic on percussion, no rebound, guarding or tenderness : Spontaneously voiding, no pain, hesitency frequency, no CVA tenderness, Extremities: Normal inspection, no peripheral edema or erythema, calfs nontender to palpation Psych: Normal mood and affect Skin: no rash or erythema Results & Data Results & Data ([facility]) Vital Signs (Past 12 Hours) Vital Signs Temp Pulse Pulse Resp BP BP Pulse Ox 01/31/22 09:55 55 L 18 130/49 L 95 01/31/22 08:52 01/31/22 08:52 37.0 C 63 16 128/42 L 96 O2 Del Method 01/31/22 09:55 Room Air 01/31/22 08:52 Room Air 01/31/22 08:52 Room Air Laboratory Results Laboratory Results - last 24 hr 01/31/22 01/31/22 01/31/22 09:00 09:00 09:00 WBC 7.81 RBC 4.21 L Hgb 13.1 L Hct 38.3 L MCV 91.0 MCH 31.1 MCHC 34.2 RDW Std Deviation 43.7 RDW Coeff of Jeremías 13.2 Plt Count 257 MPV 9.6 Immature Gran % (Auto) 0.6 Neut % (Auto) 54.3 Lymph % (Auto) 33.2 Rock % (Auto) 8.7 Eos % (Auto) 2.8 Baso % (Auto) 0.4 Neut # (Auto) 4.24 Lymph # (Auto) 2.59 Rock # (Auto) 0.68 Eos # (Auto) 0.22 Baso # (Auto) 0.03 Immature Gran # (Auto) 0.05 H Sodium 138 Potassium 5.0 Chloride 103 Carbon Dioxide 30 Anion Gap 5 BUN 37 H Creatinine 1.96 H Est Cr Clr Drug Dosing 28.7 Est GFR ( Amer) 35.6 Est GFR (Non-Af Amer) 30.7 BUN/Creatinine Ratio 18.9 Glucose 97 Calcium 9.2 Magnesium 2.3 Total Bilirubin 1.5 H AST 16 ALT 4 L Alkaline Phosphatase 91 Troponin I High Sens 10.6 Total Protein 6.3 Albumin 4.0 Globulin 2.3 L Albumin/Globulin Ratio 1.7 TSH 3.049 Urine Color Urine Appearance Urine pH Ur Specific Cascade Urine Protein Urine Glucose (UA) Urine Ketones Urine Blood Urine Nitrite Urine Bilirubin Urine Urobilinogen Ur Leukocyte Esterase Urine WBC (Auto) Urine RBC (Auto) U Hyaline Cast (Auto) U Epithel Cells (Auto) Urine Bacteria (Auto) Urine Yeast SARS-CoV-2, RNA, NAAT 01/31/22 01/31/22 09:45 11:33 WBC RBC Hgb Hct MCV MCH MCHC RDW Std Deviation RDW Coeff of Jeremías Plt Count MPV Immature Gran % (Auto) Neut % (Auto) Lymph % (Auto) Rock % (Auto) Eos % (Auto) Baso % (Auto) Neut # (Auto) Lymph # (Auto) Rock # (Auto) Eos # (Auto) Baso # (Auto) Immature Gran # (Auto) Sodium Potassium Chloride Carbon Dioxide Anion Gap BUN Creatinine Est Cr Clr Drug Dosing Est GFR ( Amer) Est GFR (Non-Af Amer) BUN/Creatinine Ratio Glucose Calcium Magnesium Total Bilirubin AST ALT Alkaline Phosphatase Troponin I High Sens Total Protein Albumin Globulin Albumin/Globulin Ratio TSH Urine Color Dark Yellow Urine Appearance Cloudy A Urine pH 5.0 Ur Specific Cascade 1.030 Urine Protein 1+ H Urine Glucose (UA) Negative Urine Ketones 1+ H Urine Blood Negative Urine Nitrite Negative Urine Bilirubin Negative Urine Urobilinogen Negative Ur Leukocyte Esterase 1+ H Urine WBC (Auto) 10-30 H Urine RBC (Auto) 10-30 H U Hyaline Cast (Auto) 1-5 U Epithel Cells (Auto) 0-5 Urine Bacteria (Auto) 4+ H Urine Yeast Present A SARS-CoV-2, RNA, NAAT Pending Diagnostic Findings Abdomen/Pelvis CT 01/31/22 08:47 CT OF THE ABDOMEN AND PELVIS WITHOUT CONTRAST CLINICAL HISTORY: Acute kidney injury. Possible hydronephrosis. COMPARISON STUDY: Right upper quadrant ultrasound April 04, 2021. CT of the abdomen and pelvis May 15, 2015. TECHNIQUE: Axial images of the abdomen and pelvis were obtained without IV contrast. Images were reviewed in the axial, sagittal, and coronal planes. Automated exposure control was utilized for the study. A dose lowering technique was utilized adhering to the principles of ALARA. FINDINGS: Lung bases are unremarkable. No pneumatosis, free air or portal venous gas is present. No renal, ureteral or bladder calculi are present although images of the pelvis are degraded by streak artifact from a left hip arthroplasty. Moderate right renal atrophy is noted. There is extensive plaque of the abdominal aorta and branch vessels, suboptimally assessed on this unenhanced exam. Infrarenal abdominal aorta is ectatic, measuring 2.5 cm. Evaluation of the remainder of the abdomen and pelvis is suboptimal on this unenhanced exam. Liver, spleen, adrenal glands and pancreas are unremarkable. There is no evidence for a bowel obstruction. The appendix is normal. Colonic diverticulosis is noted without evidence for acute diverticulitis. Moderate amount stool within the colon and rectum is noted. No lymphadenopathy is present. There is no ascites. No acute fracture or suspicious lesion within the visualized skeletal structures. IMPRESSION: 1. No urinary calculi or hydronephrosis. Moderate right renal atrophy. 2. Moderate amount stool within the colon and rectum. No bowel obstruction. 3. Colonic diverticulosis without evidence for acute diverticulitis. 4. Extensive atherosclerotic plaque of the abdominal aorta and branch vessels. ACT 112: Negative or not required by law. Electronically signed by: Hai Li M.D. 01/31/2022 10:16 AM Chest X-Ray 01/31/22 08:47 SINGLE VIEW CHEST CLINICAL HISTORY: Generalized weakness. FINDINGS: An AP, portable, upright chest radiograph is compared to study dated 04/24/2021. The patient is status post midline sternotomy. An electronic device projects over the left mid chest with leads extending the neck. The heart is mildly enlarged noting atherosclerotic calcification of the thoracic aorta. The pulmonary vasculature is noncongested. Chronic interstitial thickening is similar to previous. There is mild bibasilar atelectasis. The lungs and pleural spaces are otherwise clear. No pneumothorax is seen. The skeletal structures are osteopenic. The bony thorax is grossly intact. IMPRESSION: Mild cardiomegaly with no active disease in the chest. ACT 112: Negative or not required by law. Electronically signed by: Fabian Eric M.D. 01/31/2022 8:58 AM Medications Administered Home Medications calcium carb,cit ER 600 mg-vit D3 12.5 mcg (500 unit) tablet,ext.rel 1 tab PO DAILY 09/01/18 [History Confirmed 04/24/21] carbidopa 25 mg-levodopa 100 mg tablet 2 tab PO 6XD 09/01/18 [History Confirmed 04/24/21] isosorbide mononitrate 30 mg tablet,extended release 24 hr 30 mg PO DAILY 09/01/18 [History Confirmed 04/24/21] lactobacillus combination no.4 3 billion cell capsule (Probiotic) 3 mmu cells PO BID 09/01/18 [History Confirmed 04/24/21] melatonin 5 mg tablet 10 mg PO HS 09/01/18 [History Confirmed 04/24/21] metoprolol succinate 50 mg capsule sprinkle, ext. release 24 hr 75 mg PO DAILY 09/01/18 [History Confirmed 04/24/21] multivitamin 1 tab PO DAILY 09/01/18 [History Confirmed 04/24/21] nitroglycerin 0.4 mg sublingual tablet (Nitrostat) 0.4 mg sublingual UD PRN Chest Pain 09/01/18 [History Confirmed 04/24/21] polyethylene glycol 3350 17 gram oral powder packet (Miralax) 8.5 g PO DAILY 09/01/18 [History Confirmed 04/24/21] psyllium husk 3.4 gram/5.4 gram oral powder (Metamucil) 1 dose PO DAILY 09/01/18 [History Confirmed 04/24/21] escitalopram oxalate 10 mg tablet 10 mg PO DAILY 03/31/21 [History Confirmed 04/24/21] rivastigmine tartrate 6 mg capsule 6 mg PO BID 03/31/21 [History Confirmed 04/24/21] aspirin 81 mg tablet,delayed release 81 mg PO BID #45 tabs 04/07/21 [Rx Confirmed 04/24/21] ferrous sulfate 325 mg (65 mg iron) tablet,delayed release 325 mg PO BIDM #60 tabs 04/07/21 [Rx Confirmed 04/24/21] tramadol 50 mg tablet 50 mg PO Q4H PRN pain #30 tabs 04/07/21 [Rx Confirmed 04/24/21] Discontinued Medications Sodium Chloride (Nss 1000ml) 1,000 mls @ 999 mls/hr IV .Q1H1M [place] Stop: 01/31/22 10:00 Last Infusion: 01/31/22 10:57 Dose: 0 mls/hr Documented By: Admin: 01/31/22 09:54 Dose: 999 mls/hr Documented By: TANVI Ceftriaxone Sodium (Rocephin) 2,000 mg in 70 mls @ 140 mls/hr IV NOW STA Stop: 01/31/22 11:02 Last Admin: 01/31/22 11:29 Dose: 140 mls/hr Documented By: ARACELI ECG Additional Comments: Normal sinus rhythm T wave abnormality, consider anterior ischemia Abnormal ECG When compared with ECG of 24-APR-2021 17:48, Non-specific change in ST segment in Inferior leads ST elevation now present in Lateral leads T wave inversion now evident in Inferior leads T wave inversion now evident in Anterior leads Code Status & VTE Plan Code Status CODE: DNR/DNI VTE: SCDS, Heparin 5000 units subq bid VTE Prophylaxis Plan VTE Prophylaxis will be ordered: Yes Supervising Physician Co-Signing Physician Notes I personally saw and examined the patient. I verified all ortiz points and agree with THELMA Paul with the following exceptions and/or additions: 81 year old male due to ALFREDITO on outpatient labs after course of Bactrim for presumed UTI. O/E HS, RRR, no murmurs, Chest CTAB, abdo SNT, A&Ox3 A/P ALFREDITO - suspect somewhat artificial due to recent Bactrim use. Rehydrated in ER - no need for continued IV hydration. Repeat Cr in AM. Possible UTI - 4+ bacteria on UA. Discussed antibiotics and given prior pseudomonas and worsening ALFREDITO suggest switch to cefepime until cultures are known since Bactrim has not made his urine sterile. Follow up urine culture. PG Care Time/CCT Total # of Minutes Spent Total Time Spent with Patient: Total time spent is greater than 50% in coordination of care (as documented) at patient's floor/unit and/or counseling patient: Coding Level of Care Code INT OBSERVATION CARE 70M LVL 3 Diagnoses ALFREDITO (acute kidney injury) N17.9 UTI (urinary tract infection) N39.0 Urinary tract infection type: site unspecified CAD (coronary artery disease) I25.10 Associated angina: without angina Coronary Disease-Associated Artery/Lesion type: [place] artery [place] vs. transplanted heart: [place] heart Parkinson disease G20 Constipation K59.00 Constipation type: unspecified constipation type Depression F32.A Depression Type: unspecified (1) UTI (urinary tract infection) Urinary tract infection type: site unspecified (2) CAD (coronary artery disease) Associated angina: without angina Coronary Disease-Associated Artery/Lesion type: [place] artery [place] vs. transplanted heart: [place] heart Qualified Code(s): I25.10 - Atherosclerotic heart disease of [place] coronary artery without angina pectoris (3) Depression Depression Type: unspecified Qualified Code(s): F32.A - Depression, unspecified (4) Constipation Constipation type: unspecified constipation type Qualified Code(s): K59.00 - Constipation, unspecified
--- NOTE | 2022-01-31 13:16 | Electrocardiogram Report ---
Test Reason : Blood Pressure : / mmHG Vent. Rate : 062 BPM Atrial Rate : 062 BPM P-R Int : 186 ms QRS Dur : 082 ms QT Int : 420 ms P-R-T Axes : 019 006 -01 degrees QTc Int : 426 ms Poor data quality, interpretation may be adversely affected Normal sinus rhythm Nonspecific T wave abnormality ansep Abnormal ECG When compared with ECG of 24-APR-2021 17:48, T wave inversion now evident in Anteroseptal leads Confirmed by Braydon Gonzalez ([id number]) on 01/31/2022 1:16:13 PM Referred By: Lorne Gomez Confirmed By:Braydon Gonzalez
[2022-01-31] MEDS ORDERED: ACETAMINOPHEN 325 MG TAB PO PRN (13:28)
[2022-01-31] MEDS ORDERED: NITROGLYCERIN SL 0.4 MG/TAB TAB SL PRN (13:28)
[2022-01-31] MEDS ORDERED: CEFEPIME 2,000 MG in SYRINGE 0 ML IV ONE (14:00)
[2022-01-31] MEDS: CARBIDOPA/LEVODOPA 25/100MG TAB PO SCH ×3 (14:10→19:01)
[2022-01-31] MEDS: DOCUSATE SODIUM/SENNA 50/8.6MG TAB PO SCH (14:10)
[2022-01-31] MEDS: FERROUS SULFATE 325 MG TAB PO SCH (17:06)
[2022-01-31] MEDS: GLYCOPYRROLATE 1 MG TAB PO SCH (19:03)
[2022-01-31] MEDS: ASPIRIN 81 MG ECTAB PO SCH (20:15)
[2022-01-31] MEDS: HEPARIN SOD 5,000 UNIT/0.5 ML VIAL SQ SCH (20:17)
[2022-01-31] MEDS: RIVASTIGMINE TARTRATE 1.5 MG CAP PO SCH (20:17)
[2022-01-31] MEDS ORDERED: ATORVASTATIN 40 MG TAB PO SCH (21:00)
[2022-01-31] MEDS ORDERED: MELATONIN 3 MG TAB PO SCH (21:00)
[2022-01-31] MEDS ORDERED: QUEtiapine FUMARATE 25 MG TABLET PO SCH (21:00)
[2022-02-01 06:29] LABS: Basophils # (auto) 0.03 K/uL (0-0.2); Basophils % (auto) 0.6 %; Eosinophils % (auto) 3.7 %; Hematocrit (blood only) 33.5 % (40.1-51.0); Hemoglobin 11.3 g/dl (14.0-18.0); Immature Granulocytes # (auto) 0.02 K/uL (0.00-0.02); Immature Granulocytes % (auto) 0.4 %; Lymphocytes % (auto) 27.8 %; Mean Corpuscular Hemoglobin 29.9 pg (25.0-34.0); Mean Corpuscular Hgb Conc 33.7 g/dL (32.0-36.0); Mean Corpuscular Volume 88.6 fL (80.0-100.0); Mean Platelet Volume 8.7 fL (9.4-12.4); Monocytes # (auto) 0.48 K/uL (0.24-0.82); Monocytes % (auto) 8.9 %; Neutrophils # (auto) 3.17 K/uL (1.4-6.5); Neutrophils % (auto) 58.6 %; Platelet Count 171 K/uL (130-400); RDW Coefficient of Variation 12.7 % (11.5-14.5); RDW Standard Deviation 41.2 fL (36.4-46.3); Red Blood Count 3.78 M/uL (4.63-6.08)
[2022-02-01 07:16] LABS: BUN Creatinine Ratio 22.3 (10-20); Calcium 8.6 mg/dl (8.5-10.1); Creatinine Clr Calc Pharmacy 59.9 ml/min; Est GFR (African American) 86.6 ml/min; Est GFR (Non-African American) 74.7 ml/min; Magnesium 1.9 mg/dl (1.7-2.4)
[2022-02-01] MEDS: FERROUS SULFATE 325 MG TAB PO SCH (08:33)
[2022-02-01] MEDS: DOCUSATE SODIUM/SENNA 50/8.6MG TAB PO SCH (08:34)
[2022-02-01] MEDS: GLYCOPYRROLATE 1 MG TAB PO SCH ×2 (08:39→14:58)
[2022-02-01] MEDS: HEPARIN SOD 5,000 UNIT/0.5 ML VIAL SQ SCH (08:40)
[2022-02-01] MEDS: ASPIRIN 81 MG ECTAB PO SCH (08:40)
[2022-02-01] MEDS: RIVASTIGMINE TARTRATE 1.5 MG CAP PO SCH (08:40)
[2022-02-01] MEDS: CARBIDOPA/LEVODOPA 25/100MG TAB PO SCH ×3 (08:40→14:58)
[2022-02-01] MEDS ORDERED: ISOSORBIDE MONO EXTENDED REL 30 MG TABCR PO SCH (09:00)
[2022-02-01] MEDS ORDERED: METOPROLOL TARTRATE 25 MG TAB PO SCH (09:00)
[2022-02-01] MEDS ORDERED: POLYETHYLENE (MIRALAX) 17 GM PACK PO SCH (09:00)
[2022-02-01] MEDS ORDERED: CALCIUM 600MG + VIT D 400 IU TAB PO SCH (09:00)
[2022-02-01] MEDS ORDERED: ESCITALOPRAM OXALATE 10 MG TAB PO SCH (09:00)
[2022-02-01] MEDS ORDERED: CEFEPIME 2,000 MG in SYRINGE 0 ML IV SCH (14:00)
--- NOTE | 2022-02-01 16:47 | Discharge Summary ---
Date of Service February 01, 2022 Admission HPI Per Admitting Provider 81 YOM with past medical history of: CABG x4, HLD, HTN, parkinsonian dementia, s/p brain stimulator placement [place] [facility] [place]mi[place], urine retention with history of stricture. Patient is a resident at [facility]. 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 The patient was previously treated for a presumed UTI with bactrim from Jan 19-. In the EMD the patient had routine labs performed to include UA. Patient returned with BUN 37 and EQUIPMENT SERVICE ASSOCIATE 1.96 and UA with LE, WBC 10-30 without epis, and 4+ bacteria via straight cath. He ws given 2liters of crystalloid in the EMD and started on Rocephin. Patient will be admitted to medical floor for continued abx while awaiting UA culture, continue with bladder scans and intake and output for possible retention. Patient known from previous admission and following activation of his brain stimulator he is improved in his symptoms from his Parkinson's and mentation. COVID test on admission is: NEGATIVE Principal Diagnosis acute kidney injury resolved strep uti poa Discharge Exam The patient appeared stable Vital signs as documented. Abdominal exam reveals normal bowel sounds, soft non tender, no masses Extremities are nonedematous and both pedal pulses are normal. Neurologic exam is alert and oriented, Psychologically is without concerns for anxiety or depression. Discharge Data Allergies Allergy/AdvReac Type Severity Reaction Status Date / Time amoxicillin Allergy Severe LIVER Verified 01/31/22 11:31 REACTION, BECAME JAUNDICE clavulanic acid Allergy Severe LIVER Verified 01/31/22 11:31 REACTION, JAUNDICE Quinolones Allergy Mild LIVER, Verified 01/31/22 11:31 JAUNDICE; ALLERGY TO CIPRO, LEVAQUIN, & MOXIFLOXACIN Ordered Studies 01/31/22 08:47 CT abd pelvis wo con Stat Hospital Course (1) ALFREDITO (acute kidney injury): MARK III in the setting of UTI and bactrim use, patient also with history of urethral stricture - Above likely a combination of all -Resolution of baseline with hydration and cessation of Bactrim (2) UTI (urinary tract infection): UTI following Bactrim prescription -Preliminary culture results suggest alpha strep patient will be discharged on Keflex 500 every 12 for 6 days we will follow cultures myself (3) CAD (coronary artery disease): With history of CABG x4 continue asa continue isosorbide continue metoprolol continue ntg prn (4) Parkinson disease: Continue his carbidopa/levadopa and rivastigmine (5) Constipation: Continue to encourage home bowel regiment (6) Depression: Continue escitalopram Total Time Total Time Spent Total Time Spent (In Minutes): It required greater than 30 minutes to prepare this patient for discharge Discharge Plan Discharge Items Patient Disposition: Home - Home Health Services Reason For Visit: ELEVATED EQUIPMENT SERVICE ASSOCIATE WITH UTI Discharge Diagnosis: strep uti present on admission acute kidney injury resolved Condition on Discharge: Fair Activity: Resume your previous activity Non-emergency contact: Primary Care Provider Call non-emergency contact if: your symptoms worsen and you have a fever Follow-up/Referrals: Lorne Gomez [Primary Care Provider] - Diet: Regular Addtl Attending Provider Instructions: drink plenty of water when taking this antibiotic, take with a full glass of water, and do not lay down for one hour after taking follow up with your family doctor this week Pending Studies at Discharge: Yes (Final urine culture results) Stand-Alone Forms: [facility] [employer], Smoking Cessation Medications and DC Order Prescriptions: New cephalexin 500 mg capsule 500 mg PO BID 6 Days Qty: 12 0RF Rx Instructions: Did have cephalosporin in hospital for 24 hours Continued polyethylene glycol 3350 [Miralax] 17 gram Powder In Packet 8.5 g PO QAM Rx Instructions: Give with metamucil in 12 oz orange juice isosorbide mononitrate 30 mg Tablet Extended Release 24 Hr 30 mg PO DAILY nitroglycerin [Nitrostat] 0.4 mg Tablet, Sublingual 0.4 mg sublingual UD PRN (Reason: Chest Pain) carbidopa-levodopa 25-100 mg Tablet See Rx Instructions .ROUTE .COMPLEX Rx Instructions: Take 2 tablets at 9am, 2pm,7pm. Take 1 tablet at 1130am and 430pm melatonin 5 mg Tablet 10 mg PO HS Rx Instructions: gummies Probiotic 3 billion cell Capsule 3 mmu cells PO BID Metamucil 3.4 gram/5.4 gram Powder 1 dose PO QAM Rx Instructions: Give with miralax in 12 oz orange juice metoprolol succinate 50 mg Capsule,Sprinkle,Er 24hr 75 mg PO QAM quetiapine 25 mg tablet 25 mg PO HS glycopyrrolate 1 mg tablet 1 mg PO TID atorvastatin 40 mg tablet 40 mg PO HS Men's Multivitamin 400-20-300 mcg Tablet 1 tab PO QAM rivastigmine tartrate 6 mg capsule 6 mg PO BID aspirin 81 mg Tablet,Delayed Release (Dr/Ec) 81 mg PO BID Qty: 45 0RF tramadol 50 mg Tablet 50 mg PO Q4H PRN (Reason: pain) Qty: 30 0RF Discharge Orders: Discharge Order (Routine); Ordered 02/01/22 Ordered By: Gustabo Burgos Admission Data Admit Date/Time: 01/31/22 11:10 Attending Provider: Gustabo Burgos Admit Provider: Danilo Chun Primary Care Provider: Lorne Gomez Other Interventions: Discharge Summary Assessment (RN) Last Done: 02/01/22 15:29 Coding Level of Care Code D/C DAY MANAGEMENT >30 MINS Diagnoses ALFREDITO (acute kidney injury) N17.9 UTI (urinary tract infection) N39.0 Urinary tract infection type: site unspecified CAD (coronary artery disease) I25.10 Coronary Disease-Associated Artery/Lesion type: [place] artery [place] vs. transplanted heart: [place] heart Associated angina: without angina Parkinson disease G20 Constipation K59.00 Constipation type: unspecified constipation type Depression F32.A Depression Type: unspecified
== END 2022-02-01 15:30 | disposition home health service (06) ==
LOC: EDINP 08:43 → ED 08:43 → SUATTDRO 11:10 → EDINP 02-01 11:48